=== PATIENT | female | born 1950 | race Caucasian/White ===

== ENCOUNTER → 2020-07-16 14:52 | Outpatient (REF) | payer MEDICARE, OTHER, SELFPAY ==
--- NOTE | 2020-07-16 15:00 | CA_ITS ---
Transthoracic Echocardiogram Patient (Last, First, Middle): Shellie Salgado R Gender: Female Date of : 1950 Age: 70 Procedure Date: 07/16/2020 Procedure Type: Transthoracic Echocardiogram Location: OP Height: 157.48 cm Weight: 81.65 kg BSA: 1.83 m2 Heart Rate: bpm BP: 140 / 80 mmHg Waste Disposal Leakage Tester: Referring MD: Bob Anna MD Symptoms: I48.0 PAF, I10 HTN Study Quality: Fair ECG Rhythm: Sinus Conclusions: - The left ventricular systolic function is normal. The visually estimated ejection fraction is between 55-60%. - There is mild mitral annular calcification. There is mild mitral valve regurgitation. - Small plaque is seen in the sino tubular ridge. Findings Left Ventricle Normal left ventricular cavity size. There is normal left ventricular wall thickness. The left ventricular systolic function is normal. The visually estimated ejection fraction is between 55-60%. There is no evidence of regional wall motion abnormalities. Diastolic function is normal for age. Right Ventricle Normal right ventricular cavity size and systolic function. Atria The left atrium is normal in size. The right atrium is normal in size. Aortic Valve There is a normal trileaflet aortic valve. There is no aortic valve stenosis. There is no aortic valve regurgitation. Mitral Valve The mitral valve appears normal. There is mild mitral annular calcification. There is mild mitral valve regurgitation. There is no mitral valve stenosis. Pulmonic Valve The pulmonic valve was not well visualized. There is trace pulmonic valve regurgitation. Tricuspid Valve Normal tricuspid valve structure. There is trace tricuspid valve regurgitation. The pulmonary artery systolic pressure is normal. Great Vessels The asc aorta is normal in size. Small plaque is seen in the sino tubular ridge. Venous The inferior vena cava is normal in size and collapses greater than 50% with inspiration. Pericardium/Pleural There is no evidence of pericardial effusion. Prior Study Comparison No significant change compared to prior study dated: 01/11/2017. Measurements 2D Linear Measurements RVIDd: 3.14 RVIDd Index: 1.72 IVSd: 1.07 0.6-0.9/0.6-1.0 cm LVIDd: 5.05 3.9-5.3/4.2-5.9 cm LVIDd Index: 2.76 2.4-3.2/2.2-3.1 cm/m2 LVIDs: 3.37 2.0-3.6 cm LVPWd: 1.01 0.7-1.1 cm Ao Root: 2.30 2.1-3.5 cm LA Diam: 4.00 2.7-3.8/3.0-4.0 cm LAIDs Index: 2.19 1.5-2.3 cm/m2 LV Mass: 243.03 67-162/88-224 g LV Mass Index: 132.80 43-95/49-115 g/m2 LVOT Diam: 2.00 3.0+(-)1.3 cm 2D Systolic Function EF 4C: 52.70 >55% EF 2C: 63.50 >55% EF BiP: 60.40 >55% Mitral Valve MV Pk E: 0.82 MV PK A: 0.90 MV Decel Time: 180.00 E/A: 0.90 E'Lateral: 8.22 E'Medial: 6.38 E/E' Med: 12.90 E/E' Lat: 10.00 PHT: 53.00 MVA PHT: 4.15 Decel Florence: 4.56 Aortic Valve AoV Pk Perfecto: 1.38 AoV Mn Perfecto: 1.09 AoV VTI: 0.34 AoV Pk Grad: 8.00 Aov Mn Grad: 5.00 CHRISTIAN Cont.VTI: 2.21 LVOT LVOT Pk Perfecto: 1.08 LVOT Mn Perfecto: 0.68 LVOT VTI: 0.24 LVOT Pk Grad: 5.00 LVOT Mn Grad: 2.00 LVOT Diam: 2.00 LVOT Area: 3.14 Diastolic Function MV Pk E: 0.82 MV Pk A: 0.90 E/A: 0.90 E'Medial: 6.38 E/E' Med: 12.90 E' Laterial: 8.22 E/E' Lat: 10.00 Tricuspid Valve TR Pk Perfecto: 2.31 TR Pk Grad: 21.00 RA Press: 3.00 RVSP: 24.00 Great Vessels Aorta Ao Root-2D: 2.30 2.0-3.7 cm Ao Asc: 2.80 2.1-3.4 cm Ao Arch: 2.80 Updated in Other Vendor System with Status of Final Gabriel Woody MD electronically signed on 07/17/2020 1:47:37 PM with status of Final
== END ==
LOC: HO.CARD 14:52
PROVIDERS: PCP Internal Medicine; Visit Provider Internal Medicine Cardiovascular Disease
DX: I48.0 Paroxysmal atrial fibrillation (principal); I10 Essential (primary) hypertension
CPT/HCPCS: 93306

== ENCOUNTER → 2020-08-11 14:34 | Outpatient (BNVA) | payer MEDICARE, OTHER, SELFPAY | PROVIDERS: PCP Internal Medicine; Referring Provider Internal Medicine; Visit Provider Internal Medicine Cardiovascular Disease | DX: I48.0 Paroxysmal atrial fibrillation (principal); I10 Essential (primary) hypertension; Z79.01 Long term (current) use of anticoagulants; Z79.899 Other long term (current) drug therapy | CPT/HCPCS: 93005; 99212 ==

== ENCOUNTER 2020-08-14 14:00 | Outpatient (RCR) | payer MEDICARE, OTHER, SELFPAY ==
--- NOTE | 2020-09-01 14:50 | MHC.PT.DC ---
[facility] [place] Office [place] Office [place] Office [address] Giovany Mehta 140 [facility] [phone] F: [phone] F: [phone] F: [phone] F: [phone] Physical Therapy Discharge Report Diagnosis: Tendinitis of Right shoulder Date of Surgery: Date of Evaluation: 06/05/20 Date of Discharge: 08/14/20 Treatments to Date: 13 Cancellations to Date: 0 No Shows to Date: 0 Discharge Status: Achieved Goals Independent with HEP Discharge Summary: Pt progressed well over the course of skilled PT making progress on impairments and functional limitations resulting in an improved quality of life. Pt is I with HEP and appropriate to d/c to HEP at this time. Electronically signed by: Sreedhar So, PT Please sign and return to therapist. Thank you for your referral.
== END 2020-09-01 14:49 | disposition home or self-care (01) ==
LOC: HO.PTCHIC 14:00
PROVIDERS: PCP Internal Medicine; Visit Provider Physician Assistant
DX: M75.81 Other shoulder lesions, right shoulder (principal)
CPT/HCPCS: 97110; 97140

== ENCOUNTER 2020-08-20 12:30 | Outpatient (REF) | payer MEDICARE, OTHER, SELFPAY ==
--- NOTE | 2020-08-20 12:35 | XR_ITS ---
EXAMINATION: XR LUMBOSACRAL SPINE WITH OBLIQUES CLINICAL INFORMATION: Low back pain. COMPARISON: None TECHNIQUE: AP, both oblique, and lateral views of the lumbar spine. Lateral view of the lumbosacral junction. FINDINGS: There is generalized osteopenia. Normal lumbar lordosis and spinal alignment is seen. The intervertebral disc spaces are unremarkable. Mild to moderate bilateral facet arthropathy seen at L4-5 and L5-S1. There is no acute fracture. The soft tissues are unremarkable. XR/XR lumbar spine 6V w bending IMPRESSION: Generalized osteopenia. L4-5 and L5-S1 mild to moderate bilateral facet arthropathy.
== END 2020-08-20 12:31 | disposition home or self-care (01) ==
LOC: HO.HMGCX 12:30
PROVIDERS: PCP Internal Medicine; Visit Provider Internal Medicine
DX: M54.5 Low back pain (principal)
CPT/HCPCS: 72114

== ENCOUNTER 2020-09-23 14:00 | Outpatient (RCR) | payer MEDICARE, OTHER, SELFPAY ==
--- NOTE | 2020-08-18 18:32 | MHC.PT.EP ---
[facility] [place] Office [place] Office [place] Office [address] Giovany Mehta [address] [phone] F: [phone] F: [phone] F: [phone] F: [phone] Physical Therapy Plan of Care Date of Evaluation: 08/18/20 Date of Surgery: Diagnosis: This is a 70 yo female presenting to skilled PT with a script for low back pain Assessment: This patient was just recently at this facility for R shoulder pain and reports good results. She is now here for what she believes is sciatica. She reports that she has had back pain for many years but has not had therapy for it. Her pain lessened over time however over the past 3 months her pain increased silvia sitting. In general, she reports that this pain is limiting her in enjoying life . She has constant pain that is described as squeezing and burning , it can travel into the B buttocks and posterior legs (equal B). Assessment reveals pain that can range up to 8/10 mainly with sitting, altered posture and + testing for sacral/SIJ involvement, tenderness to palpation throughout R sacral crest and B PSIS, decreased glut strength, impaired lumbar joint mobility and ROM and decreased functional tolerance. She is a good candidate for skilled PT 2x/wk for 6wks based on age, functional limitations, PMHx and gross PT goals Frequency and Duration: The patient will be seen 2x/wk for 6wk Short Term Goals: I in HEP normal lumbar ROM without pain normal SIJ alignment with reassessment and negative tests Longterm Goals: Normal sitting posture without pain Oswestry improves by 10 points Pain at the worst is no more than 2/10 Treatment Plan: Modalities to reduce pain, spasms and effusion. Manual therapy to restore motion and function. Therapeutic exercise to improve strength and flexibility. Neuromuscular re-education for posture and balance. Therapeutic activities to return to functional activities of daily living. Please sign and return to therapist. Thank you for your referral.
--- NOTE | 2020-09-24 09:51 | MHC.PT.DC ---
[facility] [place] Office [place] Office [place] Office [address] Giovany Mehta [address] [phone] F: [phone] F: [phone] F: [phone] F: [phone] Physical Therapy Discharge Report Diagnosis: This is a 70 yo female presenting to skilled PT with a script for low back pain Date of Surgery: Date of Evaluation: 08/18/20 Date of Discharge: 09/23/20 Treatments to Date: 7 Cancellations to Date: 0 No Shows to Date: 0 Discharge Status: Achieved Goals Improved Function Independent with HEP Recommend MD Follow-up Discharge Summary: Pt I with HEP. Pt achieved most STG, LTG's however patient still has SI dysfunction. Lumbar and sacral ROM is WNL. 16 on Oswestry. DC to HEP Electronically signed by: Ledy Jurado PT Please sign and return to therapist. Thank you for your referral.
== END 2020-09-24 09:54 | disposition home or self-care (01) ==
LOC: HO.PTCHIC 14:00
PROVIDERS: PCP Internal Medicine; Visit Provider Internal Medicine
DX: M54.5 Low back pain (principal)
CPT/HCPCS: 97014; 97110; 97140; 97162

== ENCOUNTER → 2021-03-19 14:48 | Outpatient (BNVA) | payer MEDICARE, OTHER, SELFPAY | PROVIDERS: PCP Internal Medicine; Referring Provider Internal Medicine; Visit Provider Internal Medicine Cardiovascular Disease | DX: R94.31 Abnormal electrocardiogram [ECG] [EKG] (principal) | CPT/HCPCS: 93005 ==

== ENCOUNTER 2021-05-20 10:26 | Outpatient (REF) | payer MEDICARE, OTHER, SELFPAY ==
[2021-05-20 12:33] LABS: Alanine Aminotransferase 22 U/L (0-31); Anion Gap 14 (12-20); Aspartate Amino Transferase 21 U/L (5-31); Blood Urea Nitrogen 17 mg/dL (9-16); Calcium 9.4 mg/dL (8.4-10.2); Carbon Dioxide 26 mmol/L (22-29); Chloride 104 mmol/L (96-108); Cholesterol 193 mg/dL; Estimated Glomerular Filt Rate 56; Glucose Fasting 101 mg/dL (60-99); HDL Cholesterol 50 mg/dL; LDL Cholesterol Calculated 96 mg/dl; Potassium 4.5 mmol/L (3.3-5.1); Sodium 139 mmol/L (135-145); Triglycerides 239 mg/dL
[2021-05-20 12:34] LABS: Vitamin D 25-OH Total 48.5 ng/mL (>30)
== END 2021-05-20 10:27 | disposition home or self-care (01) ==
LOC: HO.HMGCLDS 10:26
PROVIDERS: PCP Internal Medicine; Visit Provider Internal Medicine
DX: I48.0 Paroxysmal atrial fibrillation (principal); I10 Essential (primary) hypertension; E78.5 Hyperlipidemia, unspecified; Z78.0 Asymptomatic menopausal state
CPT/HCPCS: 36415; 80048; 80061; 82306; 84450; 84460

== ENCOUNTER 2021-06-18 13:19 | Outpatient (REF) | payer MEDICARE, OTHER, SELFPAY ==
--- NOTE | ~2021-06-18 | MM_ITS ---
EXAMINATION: MM SCREENING DIGITAL BREAST TOMOSYNTHESIS, BILATERAL CLINICAL INFORMATION: Screening. Asymptomatic. Remote left lumpectomy for breast cancer, 1988. COMPARISON: Mammography: 06/12/2020, 01/16/2019, 02/28/2018 TECHNIQUE: Digital breast tomosynthesis is performed in both the craniocaudal and mediolateral oblique views along with computer-aided detection (CAD). Synthesized 2D images are generated from the tomosynthesis. Additional exaggerated left CC and additional left MLO views are provided. FINDINGS: There are scattered areas of fibroglandular density (ACR BI-RADS breast composition Category b). Parenchymal pattern is similar to prior studies. The right breast is unremarkable. Neither breast shows interval mass or architectural abnormality or abnormal calcifications. Left breast again shows post therapy changes with reduced breast size and stable scarring. There are some dystrophic calcifications as well as regional ductal secretory calcifications left breast. Bilateral vascular calcifications again noted. No significant changes. MM/MM tomosynthesis screening BI IMPRESSION: No mammographic evidence of malignancy. Post therapy changes left breast. ASSESSMENT: BI-RADS 2: Benign RECOMMENDATION: Routine annual mammography screening. This patient's information was entered into a reminder system with a target due date for their next mammogram.
== END 2021-06-18 13:20 | disposition home or self-care (01) ==
LOC: HO.MAMMO 13:19
PROVIDERS: PCP Internal Medicine; Visit Provider Internal Medicine
DX: Z12.31 Encounter for screening mammogram for malignant neoplasm of breast (principal)
CPT/HCPCS: 77063; 77067

== ENCOUNTER → 2021-08-11 13:43 | Outpatient (BNVA) | payer MEDICARE, OTHER, SELFPAY | PROVIDERS: PCP Internal Medicine; Referring Provider Internal Medicine; Visit Provider Internal Medicine Cardiovascular Disease | DX: I48.0 Paroxysmal atrial fibrillation (principal); I10 Essential (primary) hypertension | CPT/HCPCS: 93005; 99212 ==

== ENCOUNTER 2022-02-08 12:39 | Outpatient (REF) | payer MEDICARE, OTHER, SELFPAY ==
[2022-02-08 13:59] LABS: Hematocrit 41.9 % (37.0-47.0); Hemoglobin 13.7 g/dl (12.0-16.0); Mean Corpuscular HGB Conc 32.7 g/dl (31.0-35.0); Mean Corpuscular Hemoglobin 30.1 pg (27.0-33.0); Mean Corpuscular Volume 92.1 fL (80.0-98.0); Mean Platelet Volume 10.6 fL (9.4-12.3); Platelet Count 316 X10*3/uL (160-400); Red Blood Count 4.55 X10*6/uL (4.20-5.50); Red Cell Distribution Width 12.6 % (11.0-16.0)
[2022-02-08 15:03] LABS: Anion Gap 14 (12-20); Blood Urea Nitrogen 17 mg/dL (9-16); Calcium 9.6 mg/dL (8.4-10.2); Carbon Dioxide 21 mmol/L (22-29); Chloride 106 mmol/L (96-108); Estimated Glomerular Filt Rate 49; Glucose Random 148 mg/dL (60-115); Potassium 4.1 mmol/L (3.3-5.1); Sodium 137 mmol/L (135-145)
== END 2022-02-08 12:40 | disposition home or self-care (01) ==
LOC: HO.LAB 12:39
PROVIDERS: PCP Internal Medicine; Referring Provider Internal Medicine; Visit Provider Internal Medicine Cardiovascular Disease
DX: I48.0 Paroxysmal atrial fibrillation (principal); I10 Essential (primary) hypertension
CPT/HCPCS: 36415; 80048; 85027; 93005; 99212

== ENCOUNTER → 2022-04-23 14:39 | Outpatient (BNVA) | payer MEDICARE, OTHER, SELFPAY | PROVIDERS: PCP Internal Medicine; Referring Provider Internal Medicine; Visit Provider Nurse Practitioner Family | DX: K21.9 Gastro-esophageal reflux disease without esophagitis (principal); K29.70 Gastritis, unspecified, without bleeding | CPT/HCPCS: 99212 ==

== ENCOUNTER 2022-04-28 12:06 | Outpatient (REF) | payer MEDICARE, OTHER, SELFPAY ==
[2022-04-28 13:20] LABS: Hematocrit 43.8 % (37.0-47.0); Hemoglobin 14.2 g/dl (12.0-16.0); Mean Corpuscular HGB Conc 32.4 g/dl (31.0-35.0); Mean Corpuscular Hemoglobin 29.9 pg (27.0-33.0); Mean Corpuscular Volume 92.2 fL (80.0-98.0); Mean Platelet Volume 10.6 fL (9.4-12.3); Platelet Count 346 X10*3/uL (160-400); Red Blood Count 4.75 X10*6/uL (4.20-5.50); Red Cell Distribution Width 12.8 % (11.0-16.0); White Blood Count 10.2 X10*3/uL (4.8-10.8)
[2022-04-28 13:40] LABS: Lipase 28 U/L (8-78)
[2022-04-28 14:13] LABS: Folate 17.4 ng/mL (> or = 4.0); Vitamin B12 273 pg/mL (200-900)
[2022-04-28 14:48] LABS: Appearance Urine HAZY; Color Urine YELLOW; Glucose Urine UA NEG (NEG); Leukocyte Esterase Urine TRACE (NEG); Nitrite Urine NEG (NEG); PH 5.5 (5.0-8.0); UACC Culture Trigger NO; Urine Blood TRACE (NEG); Urine Ketones NEG (NEG); Urine Protein NEG (NEG-TRACE)
[2022-04-28 15:14] LABS: Bacteria Urine 3+ /LPF; RBC Urine 0-2 /HPF (0); Squamous Epithelial Cell Urine 4+ /LPF
[2022-05-03 14:06] LABS: Vitamin D 25-OH, D2 <4 ng/mL; Vitamin D 25-OH, D3 34 ng/mL; Vitamin D 25-OH, Total 34 ng/mL (30-100)
== END 2022-04-28 12:07 | disposition home or self-care (01) ==
LOC: HO.LAB 12:06
PROVIDERS: PCP Internal Medicine; Visit Provider Nurse Practitioner Family
DX: R10.9 Unspecified abdominal pain (principal); R19.7 Diarrhea, unspecified; E55.9 Vitamin D deficiency, unspecified
CPT/HCPCS: 36415; 81001; 82306; 82607; 82746; 83690; 85027; 99212

== ENCOUNTER 2022-04-29 12:31 | Outpatient (REF) | payer MEDICARE, OTHER, SELFPAY ==
--- NOTE | ~2022-04-29 | CT_ITS ---
EXAMINATION: CT ABDOMEN AND PELVIS WITH CONTRAST CLINICAL INFORMATION: Abdominal pain. COMPARISON: None TECHNIQUE: Multidetector volumetric images were obtained from the superior aspect of the liver through the pubic symphysis following administration 85 mL of Omnipaque 350 intravenous contrast. Sagittal and coronal reformatted images were obtained on the technologist's workstation. Oral contrast was given. This CT examination was performed using dose optimization techniques as appropriate, variously including the following: *Automated exposure control *Adjustment of mA and/or kV according to patient size (this includes techniques or standardized protocols for targeted exams where dose is matched to indication/reason for exam; i.e. extremities or head) *Use of iterative reconstruction technique DLP: 726 mGy-cm FINDINGS: LUNG BASES: No pulmonary consolidation or pleural effusion at either lung base. LIVER: Diffuse hepatic steatosis with small region of relative sparing around the gallbladder fossa. GALLBLADDER AND BILIARY TREE: Gallbladder is without radiopaque stones, wall thickening or pericholecystic fluid. No intrahepatic bile duct dilatation. Common bile duct is approximately 0.7 cm transverse diameter and there are no stones visualized within the duct. PANCREAS: Moderate atrophy. No pancreatic edema or peripancreatic fluid. SPLEEN: Normal. ADRENAL GLANDS: Normal. KIDNEYS AND URETERS: The kidneys have normal size and cortical thickness. No perinephric fluid collection. No urolithiasis or hydroureteronephrosis. BLADDER: Normal. No calculi or wall thickening. BOWEL AND PERITONEUM: Stomach is unremarkable. No dilated bowel loops. Small bowel is grossly normal. The appendix appears to be surgically absent. Along the anterior wall of the proximal sigmoid colon, there is a focus of circumscribed fat around which mesenteric fat stranding is identified. This has the typical appearance of epiploic appendagitis. Otherwise, the colon is unremarkable. ABDOMINAL WALL: Unremarkable. VASCULATURE: Mild atherosclerotic calcification of the abdominal aorta without aneurysm. Inferior vena cava is normal. LYMPH NODES: No pathologic sized lymph nodes in the abdomen or pelvis. No inguinal lymphadenopathy. PELVIC VISCERA: The uterus and adnexa are unremarkable. No pelvic free fluid. SKELETAL: There is generally mild multilevel discovertebral degenerative change of the visualized spine. No suspicious bone lesions. Bones are diffusely osteopenic. CT/CT abdomen pelvis w con IMPRESSION: * There is a epiploic appendagitis at the anterior wall of the proximal sigmoid colon. * Diffuse hepatic steatosis.
[2022-04-29 13:27] LABS: Blood Urea Nitrogen 15 mg/dL (9-16); Estimated Glomerular Filt Rate 60
[2022-04-29] MEDS: iohexoL 350 MG/ML 100 ML INFUS..BTL IV (15:56)
== END 2022-04-29 12:32 | disposition home or self-care (01) ==
LOC: HO.CT 12:31
PROVIDERS: PCP Internal Medicine; Visit Provider Nurse Practitioner Family
DX: R10.9 Unspecified abdominal pain (principal); R30.0 Dysuria; E78.5 Hyperlipidemia, unspecified
CPT/HCPCS: 36415; 74177; 82565; 84520; Q9967

== ENCOUNTER 2022-05-07 09:50 | Outpatient (REF) | payer MEDICARE, OTHER, SELFPAY ==
[2022-05-08 11:14] LABS: H Pylori Breath Test Negative (Negative)
== END 2022-05-07 09:51 | disposition home or self-care (01) ==
LOC: HO.LNP 09:50
PROVIDERS: PCP Internal Medicine; Visit Provider Nurse Practitioner Family
DX: Z11.2 Encounter for screening for other bacterial diseases (principal)
CPT/HCPCS: 83013; 99211

== ENCOUNTER → 2022-05-11 11:19 | Outpatient (BNVA) | payer MEDICARE, OTHER, SELFPAY | PROVIDERS: PCP Internal Medicine; Visit Provider Nurse Practitioner Family | DX: R10.32 Left lower quadrant pain (principal); K21.9 Gastro-esophageal reflux disease without esophagitis; K57.90 Diverticulosis of intestine, part unspecified, without perforation or abscess without bleeding | CPT/HCPCS: 99212 ==

== ENCOUNTER 2022-06-14 07:24 | Day surgery (SDC) | payer MEDICARE, OTHER, SELFPAY ==
[2022-06-08 15:01] VITALS: BMI 36.8
--- NOTE | 2022-06-11 12:56 | MHC.SHP ---
Pre-Procedural Eval Section A Date of Service: 06/11/22 The patient is an INPATIENT: No Changes since office visit: No Cold of Flu in the past 2 weeks, No New Medical Problems, No Changes in Medication and No Patient answered all questions The History & Physical has been completed within 30 days and I have reviewed it.: Yes Section B Chief Complaint: cataract Allergies: Allergies Allergy/AdvReac Type Severity Reaction Status Date / Time bupropion [From Wellbutrin] Allergy Unknown burning Verified 06/08/22 14:49 sensation citalopram Allergy Unknown burning Verified 06/08/22 14:49 sensatin in skin Plan Diagnosis/Plan: Unchanged I have reviewed the history and physical and performed a pertinent physical examination on my patient. No changes have occurred unless specified.
[2022-06-14 08:45] VITALS: BP 180/87; PULSE 67; RESP 16; TEMP 36.6; O2SAT 98
[2022-06-14] MEDS: Lactated Ringers 500 ML 50 ML IVCONT (08:54)
[2022-06-14] MEDS: Tetracaine HCl/PF 0.5% Oph Sol 4 ML DROPS 1 DROP EYE-RIGHT (08:54)
[2022-06-14] MEDS: Cyclopentolate 1 % Ophth Sol 2 ML DRPBTL 1 DROP EYE-RIGHT ×3 (08:55→09:09)
--- NOTE | 2022-06-14 08:55 | HO.ANESPROP2 ---
HPI - Anesthesia Eval Consult details Narrative: right eye cataract PMFSH Active Problems Active Problems: All Active Problems (Updated 06/03/22 @ 16:30 by Bijal Umana MD) History of left breast cancer (Acute) Vaginal pruritus (Acute) Nasal sinus congestion (Acute) Dyslipidemia (Acute) Anxiety disorder (Acute) Low back pain (Acute) Paroxysmal atrial fibrillation (Acute) HTN (hypertension) (Acute) Past Medical History Medical History Anxiety disorder Dyslipidemia History of left breast cancer HTN (hypertension) Low back pain Nasal sinus congestion On anticoagulant therapy On beta kemal at home Paroxysmal atrial fibrillation Pruritic intertrigo Vaginal pruritus Family History Family History Father Enlarged heart Hyperlipidemia Mother Uterine cancer Maternal Aunt Breast cancer Brother Mental health disorder Sister Mental health disorder Sister No problems noted. Son No problems noted. Son No problems noted. Family history of problems with anesthesia: No Surgical History Surgical History History of lumpectomy of left breast History of Problems with Anesthesia: No Social History Social History Housing: House Are you a primary career and technology education teacher to a significant other at home: No Do you presently have visiting nurse or other home services: No Alcohol intake: never Patient Tobacco Use Status: Never used Tobacco e-Cigarette/Vaping Use: Never Used Second Hand Smoke Exposure: No Use of substances other than those prescribed or required for medical reasons: No Have you been hit, kicked, punched, or otherwise hurt by someone within the past year? If so, by whom?: No Are you DNR?: No Advance Directives: No Advance Directives Information Provided: Yes Advance Directives on File: No Recently lost weight without trying: No Eating poorly because of decreased appetite: No Nutrition Risks: No Nutritional Risk Current occupational status: retired Cognitive needs: No Hearing needs: No Vision needs: Yes Meds Allergies Allergy/AdvReac Type Severity Reaction Status Date / Time bupropion [From Wellbutrin] Allergy Unknown burning Verified 06/08/22 14:49 sensation citalopram Allergy Unknown burning Verified 06/08/22 14:49 sensatin in skin Active Medications: Current Medications Lactated Ringer's (Lr) 500 mls @ 50 mls/hr IVCONT .Q10H ANDRÉS Last Admin: 06/14/22 08:54 Dose: 50 mls/hr Povidone Iodine (Povidone Iodine 5 % Ophth Soln 30 Ml Bottle) 1 appl EYE-RIGHT PREOP PRN PRN Reason: Pre-Op Surgical Implant Prophy Home Medications Medication Instructions Recorded Confirmed Last Taken Type cholecalciferol (vitamin D3) 25 25 mcg PO DAILY 08/12/20 06/08/22 Unknown History mcg (1,000 unit) capsule coenzyme Q10 100 mg capsule 100 mg PO DAILY 08/12/20 06/08/22 Unknown History (CoQ-10) Saccharomyces boulardii 250 mg 250 mg PO BID 06/03/22 06/08/22 Unknown History capsule (Daily Probiotic (S. boulardii)) Exam Exam Date and Time: June 14, 2022 0855 Height,Weight and Vital Signs: Height 5 ft 1 in Weight 88.451 kg Last Vital Signs Temp 97.9 F 06/14/22 08:45 Pulse 67 06/14/22 08:45 Resp 16 06/14/22 08:45 BP 180/87 H 06/14/22 08:45 Pulse Ox 98 06/14/22 08:45 O2 Del Method 06/14/22 08:45 Airway Mallampati Class: II TM Dist: >3cm Neck ROM: Full Loose/Missing/Broken Teeth: No Heart: rrr+[id number] Lungs: CTA b/l Assessment and Plan Assessment Anesthesia Assessment: Anesthesia Plan Discussed and Chart Reviewed Final Anesthetic Review Family History of Problems with Anesthesia: No History of Problems with Anesthesia: No NPO: Yes ASA Class: III Final Preanesthetic Review: No Changes in Pt Med Stat, Meds/Allgs Chart Reviewed, Consent Obtained/Reviewed and Anes Risks/Benef Reviewed Patient Risk: Intermediate Procedure Risk: Low Assessment/Block/Sedation in SS: Assess/Block/Sedation-SS Anesthetic Plan Anesthetic Plan: MAC: and Agree w/ Assess. and Plan Disposition: Standard PACU
[2022-06-14] MEDS: Tropicamide 1 % Ophth Sol 3 ML BTL 1 DROP EYE-RIGHT ×3 (08:58→09:11)
[2022-06-14] MEDS: Phenylephrine HCL 2.5% Oph SoL 2 ML BOTTLE 1 DROP EYE-RIGHT ×3 (09:01→09:12)
--- NOTE | 2022-06-14 10:13 | HO.PNOPHT ---
Ophthalmology Procedure Procedure Date of Service: 06/14/22 Ophthalmology Viscoelastic: Heallissette Richeyt Dual Pack Pro Ophthalmology Lenses: TECNIS [id number] (22.5) Procedure Notes: PREOPERATIVE DIAGNOSIS: Decreased visual acuity right eye secondary to cataract POSTOPERATIVE DIAGNOSIS: Same PROCEDURE: Right cataract extraction with intraocular lens insertion SURGEON: Evans Obrien M.D. ANESTHESIA: Topical/MAC ESTIMATED BLOOD LOSS: None COMPLICATIONS: None After obtaining informed consent, the patient was brought to the operating room suite and placed in the supine position. After adequate sedation per anesthesia, topical drops of Tetracaine were given to the right eye. The eye was then prepped and draped in the usual sterile fashion. The operating room microscope was then positioned over the operative eye and a lid speculum placed. A paracentesis was created. Viscoelastic was then instilled into the anterior chamber. A three plane incision was then created temporally, utilizing a 2.85 mm keratome. Capsulotomy forceps were then utilized to create a circular tear capsulotomy. Hydrodissection and hydrodelineation were carried out until adequate mobilization of the nucleus occurred. Phacoemulsification was then utilized to remove the dense central nucleus followed by removal of the cortical material utilizing the automated aspiration irrigation unit. Viscoelastic was instilled into the posterior capsular bag followed by placement of a posterior chamber intraocular lens without difficulty. The residual Viscoelastic was then removed utilizing the automated IA machine. The wound was checked and found to be watertight. The patient tolerated the procedure well and the lid speculum was removed. Intracameral injection of Vigamox 0.1 mL followed by a subtenon injection of Kenalog-40 0.2 mL were administered. The patient will be seen in the a.m.
[2022-06-14 10:35] VITALS: BP 129/76; PULSE 65; RESP 18; TEMP 36.6; O2SAT 97
== END 2022-06-14 10:49 | disposition home or self-care (01) ==
PROVIDERS: PCP Internal Medicine; Visit Provider Ophthalmology
PROC: (CPT 66985; principal; 2022-06-14 09:40)
DX: H25.11 Age-related nuclear cataract, right eye (principal); I10 Essential (primary) hypertension; Z79.899 Other long term (current) drug therapy
CPT/HCPCS: 66984; J2250; J3300; V2632

== ENCOUNTER 2022-06-21 05:57 | Day surgery (SDC) | payer MEDICARE, OTHER, SELFPAY ==
[2022-06-08 15:31] VITALS: BMI 36.8
--- NOTE | 2022-06-17 13:22 | MHC.SHP ---
Pre-Procedural Eval Section A Date of Service: 06/17/22 The patient is an INPATIENT: No Changes since office visit: No Cold of Flu in the past 2 weeks, No New Medical Problems, No Changes in Medication and No Patient answered all questions The History & Physical has been completed within 30 days and I have reviewed it.: Yes Section B Chief Complaint: cataract Allergies: Allergies Allergy/AdvReac Type Severity Reaction Status Date / Time bupropion [From Wellbutrin] Allergy Unknown burning Verified 06/08/22 14:49 sensation citalopram Allergy Unknown burning Verified 06/08/22 14:49 sensatin in skin Plan Diagnosis/Plan: Unchanged I have reviewed the history and physical and performed a pertinent physical examination on my patient. No changes have occurred unless specified.
--- NOTE | 2022-06-18 09:12 | P.CONAN_ITS ---
Documented by User: Alanna Tracy NP 06/18/22 09:13 HPI - Anesthesia Eval Consult details Narrative: 72yo F for Left Cataract Extraction IOL Insertion PCP cleared Right eye 06/14/22 with MAC: Midaz 1.5 PMFSH Active Problems Active Problems: All Active Problems (Updated 06/03/22 @ 16:30 by Bijal Umana MD) History of left breast cancer (Acute) Vaginal pruritus (Acute) Nasal sinus congestion (Acute) Dyslipidemia (Acute) Anxiety disorder (Acute) Low back pain (Acute) Paroxysmal atrial fibrillation (Acute) HTN (hypertension) (Acute) Past Medical History Medical History Anxiety disorder Dyslipidemia History of left breast cancer HTN (hypertension) Low back pain Nasal sinus congestion On anticoagulant therapy On beta kemal at home Paroxysmal atrial fibrillation Pruritic intertrigo Vaginal pruritus Family History Family History Father Enlarged heart Hyperlipidemia Mother Uterine cancer Maternal Aunt Breast cancer Brother Mental health disorder Sister Mental health disorder Sister No problems noted. Son No problems noted. Son No problems noted. Family history of problems with anesthesia: No Surgical History Surgical History History of cataract extraction History of lumpectomy of left breast History of Problems with Anesthesia: No Social History Social History Housing: House Are you a primary childcare provider to a significant other at home: No Do you presently have visiting nurse or other home services: No Alcohol intake: never Patient Tobacco Use Status: Never used Tobacco e-Cigarette/Vaping Use: Never Used Second Hand Smoke Exposure: No Use of substances other than those prescribed or required for medical reasons: No Have you been hit, kicked, punched, or otherwise hurt by someone within the past year? If so, by whom?: No Are you DNR?: No Advance Directives: No Advance Directives Information Provided: Yes Advance Directives on File: No Recently lost weight without trying: No Eating poorly because of decreased appetite: No Nutrition Risks: No Nutritional Risk Patient : No Current occupational status: retired Cognitive needs: No Hearing needs: No Vision needs: Yes Meds Allergies Allergy/AdvReac Type Severity Reaction Status Date / Time bupropion [From Wellbutrin] Allergy Unknown burning Verified 06/21/22 07:06 sensation citalopram Allergy Unknown burning Verified 06/21/22 07:06 sensatin in skin Home Medications Medication Instructions Recorded Confirmed Last Taken Type cholecalciferol (vitamin D3) 25 25 mcg PO DAILY 08/12/20 06/08/22 Unknown History mcg (1,000 unit) capsule coenzyme Q10 100 mg capsule 100 mg PO DAILY 08/12/20 06/08/22 Unknown History (CoQ-10) Saccharomyces boulardii 250 mg 250 mg PO BID 06/03/22 06/08/22 Unknown History capsule (Daily Probiotic (S. boulardii)) Exam Exam Date and Time: June 18, [id number] Height,Weight and Vital Signs: Height 5 ft 1 in Weight 88.451 kg Assessment and Plan Assessment Anesthesia Assessment: Chart Reviewed Final Anesthetic Review Family History of Problems with Anesthesia: No History of Problems with Anesthesia: No Documented by User: Raul Prakash MD 06/21/22 07:14 [facility] Past Medical History Medical History Anxiety disorder Dyslipidemia History of left breast cancer HTN (hypertension) Low back pain Nasal sinus congestion On anticoagulant therapy On beta kemal at home Paroxysmal atrial fibrillation Pruritic intertrigo Vaginal pruritus Family History Family History Father Enlarged heart Hyperlipidemia Mother Uterine cancer Maternal Aunt Breast cancer Brother Mental health disorder Sister Mental health disorder Sister No problems noted. Son No problems noted. Son No problems noted. Surgical History Surgical History History of cataract extraction History of lumpectomy of left breast Social History Social History Housing: House Are you a primary childcare provider to a significant other at home: No Do you presently have visiting nurse or other home services: No Alcohol intake: never Patient Tobacco Use Status: Never used Tobacco e-Cigarette/Vaping Use: Never Used Second Hand Smoke Exposure: No Use of substances other than those prescribed or required for medical reasons: No Have you been hit, kicked, punched, or otherwise hurt by someone within the past year? If so, by whom?: No Are you DNR?: No Advance Directives: No Advance Directives Information Provided: Yes Advance Directives on File: No Recently lost weight without trying: No Eating poorly because of decreased appetite: No Nutrition Risks: No Nutritional Risk Patient : No Current occupational status: retired Cognitive needs: No Hearing needs: No Vision needs: Yes Meds Allergies Allergy/AdvReac Type Severity Reaction Status Date / Time bupropion [From Wellbutrin] Allergy Unknown burning Verified 06/21/22 07:06 sensation citalopram Allergy Unknown burning Verified 06/21/22 07:06 sensatin in skin Home Medications Medication Instructions Recorded Confirmed Last Taken Type cholecalciferol (vitamin D3) 25 25 mcg PO DAILY 08/12/20 06/08/22 Unknown History mcg (1,000 unit) capsule coenzyme Q10 100 mg capsule 100 mg PO DAILY 08/12/20 06/08/22 Unknown History (CoQ-10) Saccharomyces boulardii 250 mg 250 mg PO BID 06/03/22 06/08/22 Unknown History capsule (Daily Probiotic (S. boulardii)) Exam Airway Mallampati Class: III TM Dist: >3cm Neck ROM: Full Loose/Missing/Broken Teeth: No Heart: [id number] Lungs: cta b/l Assessment and Plan Assessment Anesthesia Assessment: Anesthesia Plan Discussed Final Anesthetic Review NPO: Yes ASA Class: III Final Preanesthetic Review: No Changes in Pt Med Stat, Meds/Allgs Chart Reviewed, Consent Obtained/Reviewed and Anes Risks/Benef Reviewed Patient Risk: Intermediate Procedure Risk: Low Assessment/Block/Sedation in SS: Assess/Block/Sedation-SS Anesthetic Plan Anesthetic Plan: MAC: and Agree w/ Assess. and Plan Disposition: Standard PACU
[2022-06-21 06:10] VITALS: BP 168/73; PULSE 65; RESP 16; TEMP 36.8; O2SAT 97
[2022-06-21] MEDS: Tetracaine HCl/PF 0.5% Oph Sol 4 ML DROPS 1 DROP EYE-LEFT (06:13)
[2022-06-21] MEDS: Cyclopentolate 1 % Ophth Sol 2 ML DRPBTL 1 DROP EYE-LEFT ×3 (06:17→06:30)
[2022-06-21] MEDS: Tropicamide 1 % Ophth Sol 3 ML BTL 1 DROP EYE-LEFT ×3 (06:19→06:31)
[2022-06-21] MEDS: Phenylephrine HCL 2.5% Oph SoL 2 ML BOTTLE 1 DROP EYE-LEFT ×3 (06:23→06:34)
[2022-06-21] MEDS: Lactated Ringers 500 ML 50 ML IV (06:25)
--- NOTE | 2022-06-21 07:40 | HO.PNOPHT ---
Ophthalmology Procedure Procedure Date of Service: 06/21/22 Ophthalmology Viscoelastic: Heallissette Richeyt Dual Pack Pro Ophthalmology Lenses: TECLAURA [id number] (22) Procedure Notes: PREOPERATIVE DIAGNOSIS: Decreased visual acuity left eye secondary to cataract POSTOPERATIVE DIAGNOSIS: Same PROCEDURE: Left cataract extraction with intraocular lens insertion SURGEON: Evans Obrien M.D. ANESTHESIA: Topical/MAC ESTIMATED BLOOD LOSS: None COMPLICATIONS: None After obtaining informed consent, the patient was brought to the operation room suite and placed in the supine position. After adequate sedation per anesthesia, topical drops of Tetracaine were given to the left eye. The eye was then prepped and draped in the usual sterile fashion. The operating room microscope was then positioned over the operative eye and a lid speculum placed. A paracentesis was created. Viscoelastic was then instilled into the anterior chamber. A three plane incision was then created temporally, utilizing a 2.85 mm keratome. Capsulotomy forceps were then utilized to create a circular tear capsulotomy. Hydrodissection and hydrodelineation were carried out until adequate mobilization of the nucleus occurred. Phacoemulsification was then utilized to remove the dense central nucleus followed by removal of the cortical material utilizing the automated aspiration irrigation unit. Viscoat elastic was instilled into the posterior capsular bag followed by placement of a posterior chamber intraocular lens without difficulty. The residual Viscoat elastic was then removed utilizing the automated IA machine. The wound was check and found to be watertight. The patient tolerated the procedure well and the lid speculum was removed. Intracameral injection of Vigamox 0.1 mL followed by a subtenon injection of Kenalog-40 0.2 mL were administered. The patient will be seen in the a.m.
[2022-06-21 08:10] VITALS: BP 148/75; PULSE 58; RESP 16; TEMP 37; O2SAT 96
== END 2022-06-21 08:24 | disposition home or self-care (01) ==
PROVIDERS: PCP Internal Medicine; Visit Provider Ophthalmology
PROC: (CPT 66985; principal; 2022-06-21 07:30)
DX: H25.12 Age-related nuclear cataract, left eye (principal); H52.4 Presbyopia; I10 Essential (primary) hypertension; E78.5 Hyperlipidemia, unspecified; F41.1 Generalized anxiety disorder; I48.0 Paroxysmal atrial fibrillation; Z79.01 Long term (current) use of anticoagulants; Z79.899 Other long term (current) drug therapy; Z79.51 Long term (current) use of inhaled steroids; Z85.3 Personal history of malignant neoplasm of breast; Z88.8 Allergy status to other drugs, medicaments and biological substances
CPT/HCPCS: 66984; J2250; J2405; J3010; J3300; V2632

== ENCOUNTER → 2022-07-02 13:51 | Outpatient (BNVA) | payer MEDICARE, OTHER, SELFPAY | PROVIDERS: PCP Internal Medicine; Visit Provider Nurse Practitioner Family | DX: R10.84 Generalized abdominal pain (principal); K21.9 Gastro-esophageal reflux disease without esophagitis | CPT/HCPCS: 99212 ==

== ENCOUNTER → 2022-07-26 14:50 | Outpatient (REF) | payer MEDICARE, OTHER, SELFPAY ==
--- NOTE | 2022-07-26 14:52 | CA_ITS ---
Transthoracic Echocardiogram Patient (Last, First, Middle): Shellie Salgado R Gender: Female Date of : 1950 Age: 72 Procedure Date: 07/26/2022 Procedure Type: Transthoracic Echocardiogram Location: OP Height: 157.48 cm Weight: 79.38 kg BSA: 1.81 m2 Heart Rate: bpm BP: 130 / 82 mmHg Prototype Engineer: TO Referring MD: Bob Anna MD Symptoms: I48.0 - Paroxysmal atrial fibrillation Study Quality: Adequate Conclusions: - 1. Normal LV systolic function with impaired relaxation filling pattern 2. Cardiac valvular Doppler within normal limits 3. Normal RV systolic pressure 4. No gross pericardial effusion Findings Left Ventricle Normal left ventricular size, thickness, and systolic function. The visually estimated ejection fraction is between 60-65%. Spectral Doppler is indicative of an impaired relaxation filling pattern. E/E prime ratio is between 8 and 15 consistent with indeterminate filling pressures. Right Ventricle Normal right ventricular cavity size and systolic function. Atria Both atria are normal in size. Interatrial shunt cannot be excluded. Aortic Valve There is mild calcification of the aortic valve. There is no aortic valve stenosis. There is no aortic valve regurgitation. Mitral Valve There is mild anterior and posterior mitral leaflet thickening. There is mild mitral annular calcification. There is trace mitral valve regurgitation. There is no mitral valve stenosis. Pulmonic Valve The pulmonic valve is likely normal. Tricuspid Valve Likely normal tricuspid valve structure and function. There is trace tricuspid valve regurgitation. The right ventricular systolic pressure is normal. The right ventricular systolic pressure is 17 mmHg. Normal right atrial pressure. There is no evidence of pulmonary hypertension. Great Vessels All visible segments of the aorta are normal in size. The pulmonary artery was not well visualized. Venous The inferior vena cava is normal in size and collapses greater than 50% with inspiration. Pericardium/Pleural There is no evidence of pericardial effusion. Prior Study Comparison No significant change compared to prior study dated: 07/16/2020. Measurements 2D Linear Measurements IVSd: 0.86 0.6-0.9/0.6-1.0 cm LVIDd: 4.95 3.9-5.3/4.2-5.9 cm LVIDd Index: 2.73 2.4-3.2/2.2-3.1 cm/m2 LVIDs: 2.91 2.0-3.6 cm LVPWd: 0.68 0.7-1.1 cm LA Diam: 2.80 2.7-3.8/3.0-4.0 cm LAIDs Index: 1.55 1.5-2.3 cm/m2 LV Mass: 157.89 67-162/88-224 g LV Mass Index: 87.23 43-95/49-115 g/m2 LVOT Diam: 2.00 3.0+(-)1.3 cm 2D Systolic Function EF 4C: 67.20 >55% EF 2C: 58.10 >55% EF BiP: 63.20 >55% Mitral Valve MV Pk E: 0.56 MV PK A: 0.83 MV Decel Time: 227.00 E/A: 0.70 E'Lateral: 6.74 E'Medial: 4.13 E/E' Med: 13.50 E/E' Lat: 8.30 PHT: 67.00 MVA PHT: 3.28 Decel Levy: 2.45 Aortic Valve AoV Pk Perfecto: 1.33 AoV Mn Perfecto: 0.84 AoV VTI: 0.27 AoV Pk Grad: 7.00 Aov Mn Grad: 3.00 CHRISTIAN Cont.VTI: 2.59 LVOT LVOT Pk Perfecto: 0.97 LVOT Mn Perfecto: 0.65 LVOT VTI: 0.22 LVOT Pk Grad: 4.00 LVOT Mn Grad: 2.00 LVOT Diam: 2.00 LVOT Area: 3.14 Diastolic Function MV Pk E: 0.56 MV Pk A: 0.83 E/A: 0.70 E'Medial: 4.13 E/E' Med: 13.50 E' Laterial: 6.74 E/E' Lat: 8.30 Right Ventricle TAPSE (mm): 1.63 TVS' Perfecto: 7.94 Tricuspid Valve TR Pk Perfecto: 1.85 TR Pk Grad: 14.00 RA Press: 3.00 RVSP: 17.00 Great Vessels Aorta Sinus of Valsalva: 2.91 2.0-3.[address] [place]: 2.31 1.7-3.4 cm Ao Asc: 3.30 2.1-3.4 cm Ao Arch: 3.00 Updated in Other Vendor System with Status of Final Bob Anna MD electronically signed on 07/27/2022 11:54:04 AM with status of Final
== END ==
LOC: HO.CARD 14:50
PROVIDERS: PCP Internal Medicine; Visit Provider Internal Medicine Cardiovascular Disease
DX: I48.0 Paroxysmal atrial fibrillation (principal)
CPT/HCPCS: 93306

== ENCOUNTER 2022-08-04 | Outpatient (REF) | payer MEDICARE, OTHER, SELFPAY ==
--- NOTE | ~2022-08-04 | XR_ITS ---
EXAMINATION: CHEST AND RIGHT HIP CLINICAL INFORMATION: Weakness with pain in hip COMPARISON: Chest radiograph 05/28/2012 TECHNIQUE: Single view chest, single view pelvis with 2 additional views right FINDINGS: No significant abnormalities seen involving the heart, lungs or mediastinum. Some degenerative changes are seen in the spine. The pelvis and hips are unremarkable. No fractures are seen. XR/XR hip RT w PEL1V IMPRESSION: No acute intrathoracic disease. No hip fracture.
== END 2022-08-04 00:01 | disposition home or self-care (01) ==
LOC: HO.HOSX
PROVIDERS: Visit Provider Physician Assistant
DX: M70.61 Trochanteric bursitis, right hip (principal); M70.62 Trochanteric bursitis, left hip
CPT/HCPCS: 20610; 73502; 99202; J1020

== ENCOUNTER 2022-08-04 14:47 | Observation (INO) | payer MEDICARE, OTHER, SELFPAY ==
--- NOTE | ~2022-08-04 | XR_ITS ---
EXAMINATION: CHEST AND RIGHT HIP CLINICAL INFORMATION: Weakness with pain in hip COMPARISON: Chest radiograph 05/28/2012 TECHNIQUE: Single view chest, single view pelvis with 2 additional views right FINDINGS: No significant abnormalities seen involving the heart, lungs or mediastinum. Some degenerative changes are seen in the spine. The pelvis and hips are unremarkable. No fractures are seen. XR/XR chest 1V IMPRESSION: No acute intrathoracic disease. No hip fracture.
--- NOTE | ~2022-08-04 | MR_ITS ---
EXAMINATION: BRAIN MRI WITHOUT CONTRAST. CLINICAL INFORMATION: Cerebrovascular accident. Lower extremity weakness. Word finding difficulties. COMPARISON: CT angiogram of the head and neck 08/04/2022. TECHNIQUE: Multiplanar MR imaging of the brain was performed without contrast. FINDINGS: There are scattered nonspecific foci of T2 FLAIR signal hyperintensity within the periventricular white matter. No acute territorial infarct. No pathological magnetic susceptibility artifact. Intracranial vascular flow voids are maintained. There is no intracranial mass effect or midline shift. No abnormal extra-axial collection. Lateral and third ventricles are normal. No hydrocephalus. Midline structures including the cervicomedullary junction are normal. No acute bone marrow signal changes. There are bilateral mastoid effusions. No active paranasal sinus disease. Globes and orbits are symmetric. MR/MR head/brain wo con IMPRESSION: There are scattered chronic small vessel ischemic changes within the periventricular white matter. Otherwise unremarkable examination. No evidence of acute territorial infarct or hemorrhage.
--- NOTE | ~2022-08-04 | CT_ITS ---
EXAMINATION: CT angio head neck stroke CLINICAL INFORMATION: Difficulty with speech. Confusion. COMPARISON: CT scan of the head 08/04/2022. TECHNIQUE: Slip Mixer images were obtained. A CT angiogram of the head and neck was performed in the arterial phase after the intravenous administration of 70 mL Omnipaque 350. Delayed postcontrast images of the head were also obtained. MIP reconstructions were generated in multiple orientations at the acquisition workstation. Multiple three-dimensional surface rendered images and maximum intensity projection images were generated on a dedicated 3-D lab workstation. Arterial stenoses are measured in accordance with NASCET criteria or similar method if applicable. This CT examination was performed using dose optimization techniques as appropriate, including one or more of the following: Automated exposure control, iterative reconstruction, and adjustment of technique factors (mA and/or kVp) according to patient size (this includes techniques or standardized protocols for targeted exams where dose is matched to indication/reason for exam). Fleischner Society criteria for the followup of incidental pulmonary nodules was implemented if appropriate. Total exam dose-length product 1359 mGy-cm FINDINGS: Head: Postcontrast images reveal no abnormal intracranial mass or enhancement. There is no intracranial mass effect or midline shift. Lateral and third ventricles are normal. No hydrocephalus. Kulkarni-white matter differentiation is preserved and there is no evidence of acute territorial infarct. Skull base are intact. Mastoid air cells and middle ear cavities are well aerated. No identifiable filling defect within the dural venous sinuses. CT angiogram neck: The aortic arch apex is normal. Origins of major aortic branches are widely patent. Common carotid arteries and carotid bifurcations are normal. No stenosis of the extracranial internal carotid arteries. The cervical segments of the vertebral arteries as well as their origins are patent. CT angiogram head: Intracranial internal carotid arteries are normal. The intradural vertebral artery segments and basilar artery are normal. Anterior, middle, and posterior cerebral artery complexes are normal. No intracranial or vessel occlusion. Grossly no evidence of aneurysm or high flow vascular lesion. Other: Soft tissues of the neck including the thyroid gland are normal. Grossly no pathologically enlarged cervical lymph nodes. No acute osseous finding. Specific no worrisome lytic or blastic osseous lesion. CT/CT angio head neck stroke IMPRESSION: Unremarkable CT angiogram of the head and neck. Specifically there is no stenosis of the cervical carotid or vertebral arteries. No intracranial large vessel occlusion. Grossly no evidence of acute territorial infarct. No abnormal intracranial mass or enhancement. This critical result was discussed with Nupur Esparza at 3:23 PM on 08/04/2022 and it was ascertained that the content and urgency of the report was understood at the time of direct communication.
--- NOTE | ~2022-08-04 | CT_ITS ---
EXAMINATION: CT HEAD WITHOUT CONTRAST (STROKE PROTOCOL) CLINICAL INFORMATION: Stroke protocol. Diffuse, difficulty with speech. Possible stroke. COMPARISON: None TECHNIQUE: Contiguous axial imaging was performed from the skull base to vertex without intravenous administration of contrast. Axial images provided. This CT examination was performed using dose optimization techniques as appropriate, variously including the following: *Automated exposure control *Adjustment of mA and/or kV according to patient size (this includes techniques or standardized protocols for targeted exams where dose is matched to indication/reason for exam; i.e. extremities or head) *Use of iterative reconstruction technique DLP: 595 mGy-cm FINDINGS: There is no intracranial hemorrhage, hematoma, or extra-axial fluid collection. The ventricles are normal in size. There is no hydrocephalus, edema, or mass effect. The tam-white matter differentiation appears well preserved . There is no visible acute territorial infarct or mass lesion. There is focal high attenuation in the distal basilar artery 115 HU attenuation suspected to represent calcification. CTA head and neck pending, separate report. The calvarium appears intact. There is no pneumocephalus or orbital emphysema. The visualized sinuses and middle ears and mastoid air cells show no significant mucosal thickening. There are no air-fluid levels. Results called and discussed with KATRIN Fu in the emergency department at [address]/CT head for stroke IMPRESSION: -No acute intracranial hemorrhage or mass effect. -Focal high attenuation distal basilar artery suspected to represent calcification. CTA head and neck pending, separate report.
[2022-08-04 14:51] VITALS: BP 165/75; PULSE 80; RESP 19; TEMP 36.6; O2SAT 95; BMI 32.9
--- NOTE | 2022-08-04 14:56 | ECG_ITS ---
Test Reason : STROKE SYMPTOMS Blood Pressure : / mmHG Vent. Rate : 072 BPM Atrial Rate : 072 BPM P-R Int : 202 ms QRS Dur : 090 ms QT Int : 400 ms P-R-T Axes : 044 -16 008 degrees QTc Int : 438 ms Normal sinus rhythm Nonspecific T wave abnormality Anterior leads Moderate voltage criteria for LVH, may be normal variant ( R in aVL , [place] product ) Abnormal ECG When compared with ECG of 03-SEP-2017 13:03, T wave amplitude has decreased in Anterior leads Referred By: Nupur Esparza Electronically Signed By:CARLOS ENRIQUE JEFFERS MD
[2022-08-04 15:05] LABS: Prothrombin Time Whole Bld POC 11.9 sec (11.1-13.5)
[2022-08-04 15:06] LABS: Glucose, Whole Blood 149 mg/dL (60-115)
[2022-08-04] MEDS: iohexoL 350 MG/ML 100 ML INFUS..BTL IV (15:16)
--- NOTE | 2022-08-04 15:23 | ED.GENADULT ---
HPI - General Adult General Chief complaint: General Medical Stated complaint: allergic reaction Time Seen by Provider: 08/04/22 14:55 Source: patient and family Mode of arrival: wheelchair History of Present Illness HPI narrative: 72-year-old female with a past medical history of anxiety, HLD, HTN, AFib on Xarelto (noncompliance past 3 weeks), presenting to the ED from orthopedic office s/p steroid injections to bilateral hips for acute onset of bilateral lower extremity weakness, mild headache, difficulty moving mouth/finding words, dry mouth, and lightheadedness. Symptoms began a little after 14:00, improving at present. Has been noncompliant on her anticoagulation as wanted to take NSAIDs for her hip pain. Denies vision change/loss, neck/back pain, CP/SOB, abdominal pain, nausea/vomiting, numbness, tingling Onset (ago): hour(s) Related Data Home Medications Medication Instructions Recorded Confirmed cholecalciferol (vitamin D3) 25 25 mcg PO DAILY 08/12/20 06/08/22 mcg (1,000 unit) capsule coenzyme Q10 100 mg capsule 100 mg PO DAILY 08/12/20 06/08/22 (CoQ-10) Saccharomyces boulardii 250 mg 250 mg PO BID 06/03/22 06/08/22 capsule (Daily Probiotic (S. boulardii)) Previous Rx's Medication Instructions Recorded flecainide 50 mg tablet 50 mg PO BID #190 tabs 08/11/21 metoprolol tartrate 50 mg tablet 50 mg PO BID #180 caps 08/11/21 rivaroxaban 20 mg tablet (Xarelto) 20 mg PO BEDTIME #90 tabs 08/11/21 atorvastatin 10 mg tablet 10 mg PO DAILY #90 tabs 04/12/22 fluticasone propionate 50 1 spray intranasal BID #16 grams 04/12/22 mcg/actuation nasal spray,suspension (Flonase Allergy Relief) lorazepam 0.5 mg tablet 0.5 mg PO DAILY PRN anxiety #30 04/12/22 tabs famotidine 20 mg tablet (Pepcid) 20 mg PO DAILY #30 tabs 07/02/22 naproxen 500 mg tablet 500 mg PO BID 30 days #60 tabs 08/04/22 Allergies Allergy/AdvReac Type Severity Reaction Status Date / Time bupropion [From Wellbutrin] Allergy Unknown burning Verified 08/04/22 13:34 sensation citalopram Allergy Unknown burning Verified 08/04/22 13:34 sensatin in skin Review of Systems Review of Systems: Constitutional: No Fever, No Chills, No Fatigue, No Malaise ENT/Mouth: No Ear Pain, No Nasal Congestion, No Sinus Pain, No Hoarseness, No sore throat, No Rhinorrhea, No Swallowing Difficulty Eyes: No Eye Pain, No Swelling, No Redness, No Vision Changes Cardiovascular: No Chest Pain, No SOB, No Dyspnea on Exertion, No Orthopnea, No Edema, No Palpitations Respiratory: No Cough, No Sputum, No Dyspnea Gastrointestinal: No Nausea, No Vomiting, No Diarrhea, No Constipation, No Abdominal pain Genitourinary: No Dysuria, No Urinary Frequency, No Hematuria, No Urinary Incontinence/retention, No Flank Pain, No Urinary Flow Changes Musculoskeletal: No joint pain, No Myalgias, No Joint Swelling Skin: No Skin Lesions, No rash Neuro: + Weakness, No Numbness, No Paresthesias, No Loss of Consciousness, + lightheaded, + Headache Psych: + Anxiety/Panic Yes all other systems are reviewed and are negative Constitutional: Constitutional: Reports as per HPI Neurologic: Denies Abnormal speech present [facility] Past Medical History Attestation statement: The following information was validated with the patient. Medical History Anxiety disorder Dyslipidemia History of left breast cancer HTN (hypertension) Low back pain Nasal sinus congestion On anticoagulant therapy On beta kemal at home Paroxysmal atrial fibrillation Pruritic intertrigo Vaginal pruritus Surgical History History of cataract extraction History of lumpectomy of left breast Family History Family History Father Enlarged heart Hyperlipidemia Mother Uterine cancer Maternal Aunt Breast cancer Brother Mental health disorder Sister Mental health disorder Sister No problems noted. Son No problems noted. Son No problems noted. Social History Social History Housing: House Are you a primary home care coordinator to a significant other at home: No Do you presently have visiting nurse or other home services: No Alcohol intake: never Patient Tobacco Use Status: Never used Tobacco Smoked in Last 30 Days: No e-Cigarette/Vaping Use: Never Used Second Hand Smoke Exposure: No Use of substances other than those prescribed or required for medical reasons: No Advance Directives: No Advance Directives Information Provided: Yes Current occupational status: retired Cognitive needs: No Hearing needs: No Vision needs: Yes Physical Exam ED Vital Signs: Vital Signs - 24 hr 08/04/22 14:51 08/04/22 15:24 Temperature 98 F Pulse Rate 80 76 Respiratory Rate 19 18 Blood Pressure 165/75 H 171/71 H Pulse Oximetry 95 95 Oxygen Delivery Method Room Air BMI result Body Mass Index 33.5 Const General: cooperative, healthy appearing and no acute distress Orientation/consciousness: patient oriented x3 Limitations: no limitations HENMT Head: Yes normal to inspection and Yes atraumatic Ears: hearing grossly normal bilaterally General nose exam: Normal external nose present Face and sinus: Yes normal facial exam Throat: Yes posterior oropharynx normal, Yes tonsils normal, Yes uvula midline and No uvular edema Eyes General: appearance normal, both eyes and all related structures Pupils: Equal, round and reactive pupils present EOM: EOMs intact bilaterally Neck Neck: Yes normal visual inspection and Yes no meningeal signs Resp Effort & Inspection: normal respiratory effort and no respiratory distress Auscultation: clear to auscultation bilaterally, no crackles, no rales, no rhonchi and no wheezes Cardio Rate: regular rate Heart sounds: S1 normal heart sound present and S2 normal heart sound present GI Inspection: Yes normal to inspection Palpation (GI): Soft to palpation, nontender, no guarding and not rigid Skin Rashes: no rashes Wounds: no wounds Neuro General: patient oriented x3, tone normal, moves all extremities, no meningeal signs, no focal motor deficits and CN's II-XI intact bilaterally Cranial nerves: Yes Equal, round and reactive pupils present Cognition (Neuro): normal cognition Speech: No Abnormal speech present Motor exam (neuro): 5/5 motor strength present throughout, Pronator motor function not present and no tremor noted Coordination: [id number] test normal Romberg Test: Negative Extrem General: Yes normal to inspection Course Course Course Narrative: CT head for stroke IMPRESSION: -No acute intracranial hemorrhage or mass effect. ? -Focal high attenuation distal basilar artery suspected to represent calcification. CTA head and neck pending, separate report. CT angio head? neck stroke IMPRESSION: Unremarkable CT angiogram of the head and neck. Specifically there is no stenosis of the cervical carotid or vertebral arteries. No intracranial large vessel occlusion. Grossly no evidence of acute territorial infarct. No abnormal intracranial mass or enhancement.? ? ? This critical result was discussed with Nupur Esparza at 3:23 PM on 08/04/2022 and it was ascertained that the content and urgency of the report was understood at the time of direct communication. >> 1523-- stroke nurse Veronica at bedside, case discussed with Neurology Dr. Mcrae recommended stat MRI -1704--BUN acute on chronically elevated. AST/ALT mildly elevated. Initial troponin 5.1 > will obtain 3 hour repeat MR head/brain wo con IMPRESSION: There are scattered chronic small vessel ischemic changes within the periventricular white matter. Otherwise unremarkable examination. No evidence of acute territorial infarct or hemorrhage.? > will reinitiate patient on her Xarelto, plan to admit for TIA, symptoms completely resolved at present Medical Decision Making MDM Narrative Medical decision making narrative: 72-year-old female with a past medical history of anxiety, HLD, HTN, AFib on Xarelto (noncompliance past 3 weeks), presenting to the ED from orthopedic office s/p steroid injections to bilateral hips for acute onset of bilateral lower extremity weakness, mild headache, difficulty moving mouth/finding words, dry mouth, and lightheadedness. On exam vital signs stable, NAD, nontoxic appearing, symptoms improving at present, NIHSS = 0, concern for CVA vs TIA vs SAH vs embolism vs anxiety reaction Stroke alert called a soon as patient arrived to ED Plan: EKG, labs, UA, CXR, head CT, head/neck CTA, neurology consult Medical Records Medical records reviewed: Yes I reviewed the patient's medical records. Lab Data Lab results reviewed: Yes I reviewed the patient's lab results. Result diagrams: 08/04/22 15:46 08/04/22 15:46 Labs: Lab Results 08/04/22 08/04/22 08/04/22 Range/Units 14:59 15:00 15:46 WBC (4.8-10.8) X10*3/uL RBC (4.20-5.50) X10*6/uL Hgb (12.0-16.0) g/dl Hct (37.0-47.0) % MCV (80.0-98.0) fL MCH (27.0-33.0) pg MCHC (31.0-35.0) g/dl RDW (11.0-16.0) % Plt Count (160-400) X10*3/uL MPV (9.4-12.3) fL Immature Gran % (Auto) (0.0-0.4) % Neut % (Auto) (45-73) % Lymph % (Auto) (20-40) % [place] % (Auto) (2-11) % Eos % (Auto) (0-4) % Baso % (Auto) (0-2) % Lymph # (Auto) (1.2-4.9) X10*3/uL [place] # (Auto) (0.1-1.2) X10*3/uL Eos # (Auto) (0.0-0.4) X10*3/uL Baso # (Auto) (0.0-0.2) X10*3/uL Abs Immat Gran (auto) (0.00-0.03) X10*3/uL Absolute Neuts (auto) (2.0-8.3) x10*3/uL Absolute Nucleated RBC (0.0-0.012) X10*3/uL Nucleated RBC % (auto) (0.0-0.2) /100WBC PT (10.0-13.1) SEC Whole Blood PT 11.9 (11.1-13.5) sec INR (0.9-1.1) Whole Blood INR 1.0 (0.9-1.1) APTT (26.0-36.4) SEC Sodium 137 (135-145) mmol/L Potassium 4.4 (3.3-5.1) mmol/L Chloride 101 (96-108) mmol/L Carbon Dioxide 26 (22-29) mmol/L Anion Gap 14 (12-20) BUN 20 H (9-16) mg/dL Creatinine 1.11 (0.5-1.4) mg/dL Estim Creat Clear Calc 45.1 Estimated GFR 48 POC Glucose 149 H (60-115) mg/dL Random Glucose 147 H (60-115) mg/dL Calcium 9.7 (8.4-10.2) mg/dL Magnesium 1.8 (1.6-2.6) mg/dL Total Bilirubin 0.4 (0.0-1.0) mg/dL Direct Bilirubin 0.2 (0.0-0.5) mg/dL AST 36 H D (5-31) U/L ALT 42 H (0-31) U/L Alkaline Phosphatase 66 (39-117) U/L Troponin I High Sens (<3.5-17.0) ng/L Total Protein 7.9 (6.5-8.0) g/dL Albumin 4.1 (3.5-5.0) g/dL 08/04/22 08/04/22 08/04/22 Range/Units 15:46 15:46 15:46 WBC 7.3 (4.8-10.8) X10*3/uL RBC 4.66 (4.20-5.50) X10*6/uL Hgb 14.3 (12.0-16.0) g/dl Hct 43.2 (37.0-47.0) % MCV 92.7 (80.0-98.0) fL MCH 30.7 (27.0-33.0) pg MCHC 33.1 (31.0-35.0) g/dl RDW 13.0 (11.0-16.0) % Plt Count 276 (160-400) X10*3/uL MPV 11.0 (9.4-12.3) fL Immature Gran % (Auto) 0.3 (0.0-0.4) % Neut % (Auto) 77.7 H (45-73) % Lymph % (Auto) 14.2 L (20-40) % [place] % (Auto) 6.3 (2-11) % Eos % (Auto) 0.5 (0-4) % Baso % (Auto) 1.0 (0-2) % Lymph # (Auto) 1.0 L (1.2-4.9) X10*3/uL [place] # (Auto) 0.5 (0.1-1.2) X10*3/uL Eos # (Auto) 0.0 (0.0-0.4) X10*3/uL Baso # (Auto) 0.1 (0.0-0.2) X10*3/uL Abs Immat Gran (auto) 0.02 (0.00-0.03) X10*3/uL Absolute Neuts (auto) 5.7 (2.0-8.3) x10*3/uL Absolute Nucleated RBC 0.000 (0.0-0.012) X10*3/uL Nucleated RBC % (auto) 0.0 (0.0-0.2) /100WBC PT 11.0 (10.0-13.1) SEC Whole Blood PT (11.1-13.5) sec INR 1.0 (0.9-1.1) Whole Blood INR (0.9-1.1) APTT 32.6 (26.0-36.4) SEC Sodium (135-145) mmol/L Potassium (3.3-5.1) mmol/L Chloride (96-108) mmol/L Carbon Dioxide (22-29) mmol/L Anion Gap (12-20) BUN (9-16) mg/dL Creatinine (0.5-1.4) mg/dL Estim Creat Clear Calc Estimated GFR POC Glucose (60-115) mg/dL Random Glucose Cancelled (60-115) mg/dL Calcium (8.4-10.2) mg/dL Magnesium (1.6-2.6) mg/dL Total Bilirubin (0.0-1.0) mg/dL Direct Bilirubin (0.0-0.5) mg/dL AST (5-31) U/L ALT (0-31) U/L Alkaline Phosphatase (39-117) U/L Troponin I High Sens (<3.5-17.0) ng/L Total Protein (6.5-8.0) g/dL Albumin (3.5-5.0) g/dL 08/04/22 Range/Units 15:46 WBC (4.8-10.8) X10*3/uL RBC (4.20-5.50) X10*6/uL Hgb (12.0-16.0) g/dl Hct (37.0-47.0) % MCV (80.0-98.0) fL MCH (27.0-33.0) pg MCHC (31.0-35.0) g/dl RDW (11.0-16.0) % Plt Count (160-400) X10*3/uL MPV (9.4-12.3) fL Immature Gran % (Auto) (0.0-0.4) % Neut % (Auto) (45-73) % Lymph % (Auto) (20-40) % [place] % (Auto) (2-11) % Eos % (Auto) (0-4) % Baso % (Auto) (0-2) % Lymph # (Auto) (1.2-4.9) X10*3/uL [place] # (Auto) (0.1-1.2) X10*3/uL Eos # (Auto) (0.0-0.4) X10*3/uL Baso # (Auto) (0.0-0.2) X10*3/uL Abs Immat Gran (auto) (0.00-0.03) X10*3/uL Absolute Neuts (auto) (2.0-8.3) x10*3/uL Absolute Nucleated RBC (0.0-0.012) X10*3/uL Nucleated RBC % (auto) (0.0-0.2) /100WBC PT (10.0-13.1) SEC Whole Blood PT (11.1-13.5) sec INR (0.9-1.1) Whole Blood INR (0.9-1.1) APTT (26.0-36.4) SEC Sodium (135-145) mmol/L Potassium (3.3-5.1) mmol/L Chloride (96-108) mmol/L Carbon Dioxide (22-29) mmol/L Anion Gap (12-20) BUN (9-16) mg/dL Creatinine (0.5-1.4) mg/dL Estim Creat Clear Calc Estimated GFR POC Glucose (60-115) mg/dL Random Glucose (60-115) mg/dL Calcium (8.4-10.2) mg/dL Magnesium (1.6-2.6) mg/dL Total Bilirubin (0.0-1.0) mg/dL Direct Bilirubin (0.0-0.5) mg/dL AST (5-31) U/L ALT (0-31) U/L Alkaline Phosphatase (39-117) U/L Troponin I High Sens 5.1 (<3.5-17.0) ng/L Total Protein (6.5-8.0) g/dL Albumin (3.5-5.0) g/dL Critical Care Time Critical Care Time Critical Care Time: Yes Total Critical Care Time: 35 Attestation: I have personally provided critical care time exclusive of time spent on separately billable procedures. Time includes review of lab data, radiology results, discussion with consultants, and monitoring for potential decompensation. Intervention performed as documented. Discharge Plan Discharge Clinical Impression: TIA (transient ischemic attack) Patient Disposition: Admitted As Inpatient Prescriptions: No Action coenzyme Q10 [CoQ-10] 100 mg capsule 100 mg PO DAILY cholecalciferol (vitamin D3) 25 mcg (1,000 unit) capsule 25 mcg PO DAILY atorvastatin 10 mg tablet 10 mg PO DAILY Qty: 90 1RF fluticasone propionate [Flonase Allergy Relief] 50 mcg/actuation spray,suspension 1 spray intranasal BID Qty: 16 1RF Rx Instructions: administer into each nostril lorazepam 0.5 mg tablet 0.5 mg PO DAILY PRN (Reason: anxiety) Qty: 30 0RF Saccharomyces boulardii [Daily Probiotic (S. boulardii)] 250 mg capsule 250 mg PO BID metoprolol tartrate 50 mg tablet 50 mg PO BID Qty: 180 3RF Xarelto 20 mg tablet 20 mg PO BEDTIME Qty: 90 3RF flecainide 50 mg tablet 50 mg PO BID Qty: 190 3RF famotidine [Pepcid] 20 mg tablet 20 mg PO DAILY Qty: 30 3RF naproxen 500 mg tablet 500 mg PO BID 30 Days Qty: 60 3RF
[2022-08-04 15:24] VITALS: BP 171/71; PULSE 76; RESP 18; O2SAT 95
[2022-08-04 15:29] VITALS: BMI 33.5
[2022-08-04 15:54] LABS: MANUAL DIFF FLAG NO
[2022-08-04 15:56] LABS: Basophils Absolute Auto 0.1 X10*3/uL (0.0-0.2); Eosinophils Percent Auto 0.5 % (0-4); Hematocrit 43.2 % (37.0-47.0); Hemoglobin 14.3 g/dl (12.0-16.0); Imm Gran Abs Auto 0.02 X10*3/uL (0.00-0.03); Imm Gran Pct Auto 0.3 % (0.0-0.4); Lymphocytes Percent Auto 14.2 % (20-40); Mean Corpuscular HGB Conc 33.1 g/dl (31.0-35.0); Mean Corpuscular Hemoglobin 30.7 pg (27.0-33.0); Mean Corpuscular Volume 92.7 fL (80.0-98.0); Monocytes Absolute Auto 0.5 X10*3/uL (0.1-1.2); Monocytes Percent Auto 6.3 % (2-11); Neutrophils Absolute Auto 5.7 x10*3/uL (2.0-8.3); Neutrophils Percent Auto 77.7 % (45-73); Platelet Count 276 X10*3/uL (160-400); Red Blood Count 4.66 X10*6/uL (4.20-5.50); White Blood Count 7.3 X10*3/uL (4.8-10.8)
[2022-08-04 16:04] LABS: Partial Thromboplastin Time 32.6 SEC (26.0-36.4); Stroke Lab Use COMPLETE
[2022-08-04 16:15] LABS: Alanine Aminotransferase 42 U/L (0-31); Albumin Level 4.1 g/dL (3.5-5.0); Alkaline Phosphatase 66 U/L (39-117); Anion Gap 14 (12-20); Aspartate Amino Transferase 36 U/L (5-31); Bilirubin Direct 0.2 mg/dL (0.0-0.5); Bilirubin Total 0.4 mg/dL (0.0-1.0); Blood Urea Nitrogen 20 mg/dL (9-16); Calcium 9.7 mg/dL (8.4-10.2); Carbon Dioxide 26 mmol/L (22-29); Chloride 101 mmol/L (96-108); Creatinine Clr Calc Pharmacy 45.1; Estimated Glomerular Filt Rate 48; Glucose Random 147 mg/dL (60-115); Magnesium 1.8 mg/dL (1.6-2.6); Potassium 4.4 mmol/L (3.3-5.1); Sodium 137 mmol/L (135-145); Total Protein 7.9 g/dL (6.5-8.0)
[2022-08-04 16:16] LABS: Troponin-I High Sensitivity 5.1 ng/L (<3.5-17.0)
--- NOTE | 2022-08-04 16:56 | MHC.STROKE ---
1447 WALK-IN FROM ORTHOPEDIC OFFICE. 1456 CALLED TO ED FOR STROKE PROTOCOL ACTIVATION. SEEN BY PROVIDER FOR SUDDEN ONSET OF SLURRED SPEECH AND JHON LEG WEAKNESS ONSET AT 1415. CT HEAD AND CTA H/N DONE. NO BLED AND NO LVO. UPON MY EXAM HER NIHSS = 0. I REVIEWED HER PRESENTATION WITH DR MADSEN AND A MRI BRAIN WO WAS RECOMMENDED DUE TO THE SLURRED SPEECH AND HISTORY OF AFIB AND SHE HAS NOT TAKEN HER XARELTO FOR 2-3 WEEKS DUE TO HIP PAIN AND SHE WANTED TO TAKE ADVIL. PATIENT PASSED SWALLOW SCREEN PRIOR TO PO. SLIGHTLY HYPERTENSIVE. I DID TAKE HER TO MRI, SHE DID AMBULATE TO THE BATHROOM WITH A STEADY GAIT WITH ASSIST, VOIDED, SHE TOLERATED THE MRI AND AMBULATED TO THE BATHROOM A SECOND TIME, VOIDED. BP 188/70. I REPORTED TO THE NURSE GREGORY. I PROVIDED STROKE EDUCATION TO THE PATIENT AND . I REVIEWED THE PLAN OF CARE AND ANSWERED AL OF HER QUESTIONS. SHE WILL ADMITTED TO OBSERVATION AND MONITOR NEURO'S, RESTART XARELTO, ECHO (ALTHOUGH SHE HAD ONE LAST WEEK ACCORDING TO HER) WE NEED TO ASSESS ECHO BECAUSE SHE WAS OFF THE XARELTO.
--- NOTE | 2022-08-04 17:29 | PHA.MEDREC ---
Pharmacy Consult ? Medication Reconciliation Pharmacy has completed the medication reconciliation.
[2022-08-04 17:43] VITALS: BP 199/67; PULSE 77; RESP 18; TEMP 36.9; O2SAT 96
--- NOTE | 2022-08-04 17:45 | P.HPHOSP_ITS ---
History of Present Illness Date of Service: 08/04/22 <KATRIN Verduzco - Last Filed: 08/04/22 18:40> Attending physician on admission: Purvi Jeter <KATRIN Verduzco - Last Filed: 08/04/22 18:40> Chief Complaint: weakness, aphasia <KATRIN Verduzco - Last Filed: 08/04/22 18:40> 72 year old female with history of paroxysmal atrial fibrillation on xarelto (though noncompliant last 3 weeks as she had wanted to take ibuprofen for her pain), htn, hld, bilateral trochanteric bursitis, hisotyr breast cancer, and anxiety presented to the ED from orthopedics office. She received bilateral steroid injections for the bursitis and after the procedure went to the waiting room developing sudden onset lightheadedness, increased thirst, aphasia, and generalized weakness. She called her who came to assist and upon standing felt like her b/l legs could not support her. The symptoms started resolving after about 30 minutes with total resolution around 60 minutes. On arrival to pt hypertensive at 165/75, no tachycardia or hypoxia. Head CT negative for acute intracranial pathology. CTA head and neck unremarkable without any stenosis of the carotid or vertebral arteries of intracranial large vessel occlusion. No evidence of infarction. MRI brain showing chronic small vessel ischemic changes without the periventricular white matter. Hematology and chemistry studies wtihout significant abnormality. EKG showed NSR, rate 72, no REN. Did have echocardiogram performed one week ago showing normal LV systolic function with EF 60-65%. No valvular abnormality. She did have cataract surgery bilaterally 6 weeks ago. Patient has no complaints or residual deficits at this time. Pt seen and examined at bedside in the presence of her . <KATRIN Verduzco - Last Filed: 08/04/22 18:40> Review of Systems Review of Systems: General: No fevers, malaise, unintentional weight loss HEENT: +increased thirst. No blurred vision, diplopia. No sore throat, nasal congestion, rhinorrhea, sinus pain, ear pain Cardiovascular: No chest pain, palpitations, or leg edema Respiratory: No shortness of breath, wheezing, cough GI: No abdominal pain, nausea, vomiting, diarrhea, constipation, melena, hematochezia : No dysuria, hematuria, increased urinary frequency, decreased urinary output MSK: No myalgia, back pain Neuro: +aphasia, +lightheadedness, +headache, +generalized weakness. No focal weakness, paresthesias Skin: No rashes or lesions <KATRIN Verduzco - Last Filed: 08/04/22 18:40> [facility] Medical History: Medical History Anxiety disorder Dyslipidemia History of left breast cancer HTN (hypertension) Low back pain Nasal sinus congestion On anticoagulant therapy On beta kemal at home Paroxysmal atrial fibrillation Pruritic intertrigo Vaginal pruritus <KATRIN Verduzco - Last Filed: 08/04/22 18:40> Family History: Family History Father Enlarged heart Hyperlipidemia Mother Uterine cancer Maternal Aunt Breast cancer Brother Mental health disorder Sister Mental health disorder Sister No problems noted. Son No problems noted. Son No problems noted. <KATRIN Verduzco - Last Filed: 08/04/22 18:40> Surgical History: Surgical History History of cataract extraction History of lumpectomy of left breast <KATRNI Verduzco - Last Filed: 08/04/22 18:40> Social History: Social History Household Members: Spouse Housing: House Are you a primary healthcare associate to a significant other at home: No Do you presently have visiting nurse or other home services: No Alcohol intake: never Patient Tobacco Use Status: Never used Tobacco e-Cigarette/Vaping Use: Never Used Second Hand Smoke Exposure: No service: No Current occupational status: retired Cognitive needs: No Hearing needs: No Vision needs: Yes <KATRIN Verduzco - Last Filed: 08/04/22 18:40> Meds Allergies/Adverse reactions: Allergies Allergy/AdvReac Type Severity Reaction Status Date / Time bupropion [From Wellbutrin] Allergy Unknown burning Verified 08/04/22 13:34 sensation citalopram Allergy Unknown burning Verified 08/04/22 13:34 sensatin in skin <KATRIN Verduzco - Last Filed: 08/04/22 18:40> Active Medications: Current Medications Lorazepam (Lorazepam 0.5 Mg Tablet) 0.5 mg PO ONCE ONE Stop: 08/04/22 17:46 Pharmacy Consult (Consult Rx Perform Med Rec) 1 each MISCELLANE ONCE PRN PRN Reason: Consult order <KATRIN Verduzco - Last Filed: 08/04/22 18:40> Home medications: Home Medications Medication Instructions Recorded Confirmed Last Taken Type cholecalciferol (vitamin D3) 25 25 mcg PO DAILY 08/12/20 08/06/22 Unknown History mcg (1,000 unit) capsule fluticasone propionate 50 1 spray intranasal BID PRN Allergy 08/04/22 08/06/22 Unknown History mcg/actuation nasal Symptoms spray,suspension (Flonase Allergy Relief) <KATRIN Verduzco Last Filed: 08/04/22 18:40> Physical Exam Vital Signs and Narrative: Vital Signs: Last Vital Signs Temp 98.5 F 08/04/22 17:43 Pulse 77 08/04/22 17:43 Resp 18 08/04/22 17:43 BP 199/67 H 08/04/22 17:43 Pulse Ox 96 08/04/22 17:43 O2 Del Method 08/04/22 17:43 BMI result Body Mass Index 33.5 <KATRIN Verduzco Last Filed: 08/04/22 18:40> Constitutional - Awake and Alert, No apparent distress Eyes - PERRLA, EOMI Cardiovascular - S1S2, RRR, No edema Respiratory - Normal lung expansion, Normal respiratory effort, No respiratory distress, CTA bilaterally Gastrointestinal - NT / ND; +BS; No rebound or guarding - No CVA tenderness Extremities - no calf tenderness bilaterally, no swelling Skin - Warm/Dry Neurological - Alert & oriented x3, CN II-XII in tact, normal finger to nose testing. 5/5 strength BUE and BLE, sensation in tact. 2+ patellar reflexes, downgoing babinski Psychological - Appropriate affect <KATRIN Verduzco Last Filed: 08/04/22 18:40> Results Labs CBC and Chem 7: : 08/04/22 15:46 08/04/22 15:46 <KATRIN Verduzco Last Filed: 08/04/22 18:40> Labs: Laboratory Results - last 24 hr 08/04/22 08/04/22 08/04/22 14:59 15:00 15:46 MCV MCH MCHC RDW Plt Count MPV Immature Gran % (Auto) Neut % (Auto) Lymph % (Auto) [place] % (Auto) Eos % (Auto) Baso % (Auto) Lymph # (Auto) [place] # (Auto) Eos # (Auto) Baso # (Auto) Abs Immat Gran (auto) Absolute Neuts (auto) Absolute Nucleated RBC Nucleated RBC % (auto) PT Whole Blood PT 11.9 INR Whole Blood INR 1.0 APTT Anion Gap 14 Estim Creat Clear Calc 45.1 Estimated GFR 48 POC Glucose 149 H Random Glucose 147 H Calcium 9.7 Magnesium 1.8 Total Bilirubin 0.4 Direct Bilirubin 0.2 AST 36 H D ALT 42 H Alkaline Phosphatase 66 Troponin I High Sens Total Protein 7.9 Albumin 4.1 08/04/22 08/04/22 08/04/22 15:46 15:46 15:46 MCV 92.7 MCH 30.7 MCHC 33.1 RDW 13.0 Plt Count 276 MPV 11.0 Immature Gran % (Auto) 0.3 Neut % (Auto) 77.7 H Lymph % (Auto) 14.2 L [place] % (Auto) 6.3 Eos % (Auto) 0.5 Baso % (Auto) 1.0 Lymph # (Auto) 1.0 L [place] # (Auto) 0.5 Eos # (Auto) 0.0 Baso # (Auto) 0.1 Abs Immat Gran (auto) 0.02 Absolute Neuts (auto) 5.7 Absolute Nucleated RBC 0.000 Nucleated RBC % (auto) 0.0 PT 11.0 Whole Blood PT INR 1.0 Whole Blood INR APTT 32.6 Anion Gap Estim Creat Clear Calc Estimated GFR POC Glucose Random Glucose Cancelled Calcium Magnesium Total Bilirubin Direct Bilirubin AST ALT Alkaline Phosphatase Troponin I High Sens Total Protein Albumin 08/04/22 15:46 MCV MCH MCHC RDW Plt Count MPV Immature Gran % (Auto) Neut % (Auto) Lymph % (Auto) [place] % (Auto) Eos % (Auto) Baso % (Auto) Lymph # (Auto) [place] # (Auto) Eos # (Auto) Baso # (Auto) Abs Immat Gran (auto) Absolute Neuts (auto) Absolute Nucleated RBC Nucleated RBC % (auto) PT Whole Blood PT INR Whole Blood INR APTT Anion Gap Estim Creat Clear Calc Estimated GFR POC Glucose Random Glucose Calcium Magnesium Total Bilirubin Direct Bilirubin AST ALT Alkaline Phosphatase Troponin I High Sens 5.1 Total Protein Albumin <KATRIN Verduzco - Last Filed: 08/04/22 18:40> Imaging Radiologist's Impressions: Impressions Head CT 08/04/22 15:05 IMPRESSION: -No acute intracranial hemorrhage or mass effect. -Focal high attenuation distal basilar artery suspected to represent calcification. CTA head and neck pending, separate report. Head/Neck CTA 08/04/22 15:19 IMPRESSION: Unremarkable CT angiogram of the head and neck. Specifically there is no stenosis of the cervical carotid or vertebral arteries. No intracranial large vessel occlusion. Grossly no evidence of acute territorial infarct. No abnormal intracranial mass or enhancement. This critical result was discussed with Nupur Esparza at 3:23 PM on 08/04/2022 and it was ascertained that the content and urgency of the report was understood at the time of direct communication. Brain MRI 08/04/22 16:35 IMPRESSION: There are scattered chronic small vessel ischemic changes within the periventricular white matter. Otherwise unremarkable examination. No evidence of acute territorial infarct or hemorrhage. <KATRIN Verduzco - Last Filed: 08/04/22 18:40> Assessment and Plan (1) TIA (transient ischemic attack): Status: Acute <KATRIN Verduzco - Last Filed: 08/04/22 18:40> 72 year old female with history of paroxysmal atrial fibrillation on xarelto (though noncompliant last 3 weeks as she had wanted to take ibuprofen for her pain), htn, hld, bilateral trochanteric bursitis, hisotyr breast cancer, and anxiety to be observed for probable TIA with full resolution of symptoms in the setting of noncompliance with xarelto. #TIA -Developed sudden onset lightheadedness, increased thirst, aphasia, bilateral upper and lower extremity weakness, and anxiety following cortisone injections b.l hips this afternoon. Full resolution of symptoms within 1 hour -CT head and CTA head and neck unremarkable. MRI showing microvascular ischemia, but no infarct -Likely due to noncompliance with xarelto x3 weeks as she was taking nsaids for pain. Antiplatelet therapy not likely indicated -Neuro consult -Lipid panel ordered -Increase atorvastatin to 40mg -Resume xarelto -Limited echo ordered to evaluate for any cardiac thrombus -ABCD2 score 4 -Observe on telemetry #PAF- rate controlled -EKG showing NSR, rate 72, no REN -Resume xarelto -continue flecainide -Continue metoprolol # hypertension - resume metoprolol # HLD - increase atorvastatin to 40 mg # GERD - continue famotidine # anxiety - lorazepam p.r.n. DVT prophylaxis- resume xarelto Full code <KATRIN Verduzco - Last Filed: 08/04/22 18:40> 72 year old female with history of paroxysmal atrial fibrillation on xarelto (though noncompliant last 3 weeks as she had wanted to take ibuprofen for her pain), htn, hld, bilateral trochanteric bursitis, hisotyr breast cancer, and anxiety to be observed for probable TIA with full resolution of symptoms in the setting of noncompliance with xarelto. #TIA -Developed sudden onset lightheadedness, increased thirst, aphasia, bilateral upper and lower extremity weakness, and anxiety following cortisone injections b.l hips this afternoon. Full resolution of symptoms within 1 hour -CT head and CTA head and neck unremarkable. MRI showing microvascular ischemia, but no infarct -Likely due to noncompliance with xarelto x3 weeks as she was taking nsaids for pain. Antiplatelet therapy not likely indicated -Neuro consult -Lipid panel ordered -Increase atorvastatin to 40mg -Resume xarelto -Limited echo ordered to evaluate for any cardiac thrombus -ABCD2 score 4 -Observe on telemetry #PAF- rate controlled -EKG showing NSR, rate 72, no REN -Resume xarelto -continue flecainide -Continue metoprolol # hypertension - resume metoprolol # HLD - increase atorvastatin to 40 mg # GERD - continue famotidine # anxiety - lorazepam p.r.n. DVT prophylaxis- resume xarelto Full code Addendum to history and physical by mid-level provider, KATRIN Moon I interviewed and examined the patient. I discussed their presentation and management with the mid-level provider. I reviewed the history and physical and agree with the documentation, with the following additions and corrections: 72yo F with pAF on rivaroxaban though off for past 3 wk as pt wanted to take IBU for back/hip pain. Developed lightheadedness + expressive aphasia + generalized weakneess after cortisone injection of hips. Now neurologically normal- no focal findings on exam. Concern for TIA vs. vasovagal reaction to cortisone reaction. Resume rivaroxaban and milieu counselor on importance of not missing any doses. Neuro consult. high-intensity statin. <Purvi Jeter MD - Last Filed: 08/08/22 12:07> Quality Stroke Does the patient have a stroke diagnosis?: No <KATRIN Verduzco - Last Filed: 08/04/22 18:40> VTE Prior VTE?: No <KATRIN Verduzco - Last Filed: 08/04/22 18:40> VTE Risk Level:: Medical - moderate - high <KATRIN Verduzco - Last Filed: 08/04/22 18:40> VTE Device Contraindication: Treatment Not Indicated <KATRIN Verduzco - Last Filed: 08/04/22 18:40> VTE Drug Contraindication: N/A - Med Ordered <KATRIN Verduzco - Last Filed: 08/04/22 18:40>
[2022-08-04] MEDS: LORazepam 0.5 MG TABLET PO ×2 (18:00→22:50)
[2022-08-04 18:33] VITALS: BP 171/63; PULSE 74
[2022-08-04 18:33] LABS: COVID-19 Test Negative (Negative); IDNOW Serial# 16C4AD1C
[2022-08-04 19:16] VITALS: BP 134/49; PULSE 65; RESP 19; TEMP 36.8; O2SAT 96
--- NOTE | 2022-08-04 19:54 | PC.NURSE ---
Pt. has a bed on [facility], bed 357-1. Called to give report, RN currently unavailable to take report, they will call when available.
[2022-08-04 20:36] LABS: Troponin-I High Sensitivity 31.4 ng/L (<3.5-17.0)
[2022-08-04 20:50] VITALS: BMI 33.0
[2022-08-04 21:24] VITALS: BP 149/61; PULSE 71; RESP 17; TEMP 36.4; O2SAT 95
[2022-08-04] MEDS: Acetaminophen 325 MG TABLET 650 MG PO (22:50)
[2022-08-04] MEDS: Flecainide Acetate 50 MG TABLET PO (22:50)
[2022-08-04] MEDS: Metoprolol Tartrate 50 MG TABLET PO (22:50)
[2022-08-04] MEDS: Rivaroxaban 20 MG TABLET PO (22:50)
[2022-08-05] VITALS: BP 147/66; PULSE 62; RESP 18; TEMP 36.6; O2SAT 98
[2022-08-05 04:00] VITALS: BP 146/66; PULSE 54; RESP 18; TEMP 36.4; O2SAT 98
[2022-08-05 06:04] LABS: Cholesterol 186 mg/dL; HDL Cholesterol 57 mg/dL; LDL Cholesterol Calculated 114 mg/dl; Triglycerides 76 mg/dL
--- NOTE | 2022-08-05 07:00 | CA_ITS ---
Transthoracic Echocardiogram Patient (Last, First, Middle): Shellie Salgado R Gender: Female Date of : 1950 Age: 72 Procedure Date: 08/05/2022 Procedure Type: Transthoracic Echocardiogram Location: S3E Height: 157.48 cm Weight: 81.65 kg BSA: 1.83 m2 Heart Rate: 64 bpm BP: 144 / 66 mmHg Loom Overhauler: [place] Referring MD: Missy WILKES Symptoms: TIA/Rule out PFO Study Quality: Fair ECG Rhythm: Sinus Conclusions: - There is no evidence of interatrial shunt by agitated saline. Findings Atria There is no evidence of interatrial shunt by agitated saline. (rest and valsalva). Prior Study Comparison No significant change compared to prior study dated: 07/26/2022. Updated in Other Vendor System with Status of Final Gabriel Woody MD electronically signed on 08/05/2022 3:11:58 PM with status of Final
[2022-08-05 07:26] VITALS: BP 131/67; PULSE 61; RESP 17; TEMP 36.6; O2SAT 97
[2022-08-05] MEDS: Flecainide Acetate 50 MG TABLET PO (09:22)
[2022-08-05] MEDS: Cholecalciferol (Vitamin D3) 25 MCG TABLET PO (09:22)
[2022-08-05] MEDS: Atorvastatin Calcium 40 MG TABLET PO (09:22)
[2022-08-05] MEDS: Metoprolol Tartrate 50 MG TABLET PO (09:23)
--- NOTE | 2022-08-05 09:37 | MHC.CM.PN ---
HICKS 08/05/22, EMR REVIEWED, CM MET W/PT WHO REPORTS SHE LIVES W/, IS INDEPENDENT W/ALL CARE, HAS A FWW HOWEVER ONLY USED IT AFTER HER KNEE SURGERY, NO HOME SERVICES, PT VERIFIES PCP IS LEONIE HERNANDEZ, [facility] X[facility], AND REPORTS HER HCP IS [facility] [phone], COPY REQUESTED. RAMANDEEP D/C LATER TODAY HOME NO SERVICES W/FAMILY FOR TRANSPORT.
[2022-08-05 11:13] VITALS: BP 143/66; PULSE 64; RESP 18; TEMP 37; O2SAT 95
--- NOTE | 2022-08-05 13:08 | PM.NEUROCN ---
History of Present Illness Data of Consult Service Date: 08/05/22 Primary Care Provider: Bijal Umana MD HPI Reason for consult: Dizziness 72 years old woman with atrial fibrillation who has been taking Xarelto but stopped taking it for few days because she wanted to take at well for bursitis. Yesterday she had injection treatment for bursitis in both legs and after that she walked to the bathroom and with their she felt dizziness lightheaded and as with dry mouth and generalized weakness. She was attended and noted to be not speaking and then brought to emergency room. A little while later her symptoms improved. Extensive investigations did not reveal any obvious abnormality. She was very concerned that she might have a stroke type symptom due to not taking Xarelto. Review of Systems Review of Systems: Bilateral leg pain. [facility] Past Medical History Medical History Anxiety disorder Dyslipidemia History of left breast cancer HTN (hypertension) Low back pain Nasal sinus congestion On anticoagulant therapy On beta kemal at home Paroxysmal atrial fibrillation Pruritic intertrigo Vaginal pruritus Family History Family History Father Enlarged heart Hyperlipidemia Mother Uterine cancer Maternal Aunt Breast cancer Brother Mental health disorder Sister Mental health disorder Sister No problems noted. Son No problems noted. Son No problems noted. Surgical History Surgical History History of cataract extraction History of lumpectomy of left breast Social History Social History Household Members: Spouse Housing: House Are you a primary lead caregiver to a significant other at home: No Do you presently have visiting nurse or other home services: No Alcohol intake: never Patient Tobacco Use Status: Never used Tobacco Smoked in Last 30 Days: No e-Cigarette/Vaping Use: Never Used Second Hand Smoke Exposure: No Use of substances other than those prescribed or required for medical reasons: No Substance Use Type Other:: CBD Substance Use Frequency: Occasionally Last Used Substance: Days (ago) Currently Displaying Signs/Symptoms of Drug Intoxication Withdrawal: No Any prior treatment program specific to substance use: No Have you been hit, kicked, punched, or otherwise hurt by someone within the past year? If so, by whom?: No Do you feel safe in your current relationship?: Yes Is there a partner from a previous relationship who is making you feel unsafe now?: No Are you made to feel afraid or neglected: No [employer] Healthcare Practices: moravian Advance Directives: No Advance Directives Information Provided: Yes Do you have thoughts of harming others: None Do you have a plan to hurt others: No Plan Recently lost weight without trying: No Eating poorly because of decreased appetite: No Nutrition Risks: No Nutritional Risk Patient : No : No Poor oral hygiene: No service: No Current occupational status: retired Cognitive needs: No Hearing needs: No Vision needs: Yes Meds Allergies Allergy/AdvReac Type Severity Reaction Status Date / Time bupropion [From Wellbutrin] Allergy Unknown burning Verified 08/04/22 13:34 sensation citalopram Allergy Unknown burning Verified 08/04/22 13:34 sensatin in skin Active Medications: Current Medications Acetaminophen (Acetaminophen 325 Mg Tablet) 650 mg PO Q6H PRN PRN Reason: Pain, Mild (Pain Scale 1-3) Last Admin: 08/04/22 22:50 Dose: 650 mg Atorvastatin Calcium (Atorvastatin Calcium 40 Mg Tablet) 40 mg PO DAILY [facility] Last Admin: 08/05/22 09:22 Dose: 40 mg Docusate Sodium (Docusate Sodium 100 Mg Capsule) 100 mg PO DAILY PRN PRN Reason: Constipation Famotidine (Famotidine 20 Mg Tablet) 20 mg PO DAILY [facility] Last Admin: 08/05/22 09:23 Dose: Not Given Flecainide Acetate (Flecainide Acetate 50 Mg Tablet) 50 mg PO BID [facility] Last Admin: 08/05/22 09:22 Dose: 50 mg Fluticasone Propionate (Fluticasone Propionate Nasal 16 Gm [place]) 1 spray NOSTRIL-B BID PRN PRN Reason: Allergy Symptoms Lorazepam (Lorazepam 0.5 Mg Tablet) 0.5 mg PO DAILY PRN PRN Reason: anxiety Last Admin: 08/04/22 22:50 Dose: 0.5 mg Melatonin (Melatonin 3 Mg Tablet) 6 mg PO BEDTIME PRN PRN Reason: insomnia Metoprolol Tartrate (Metoprolol Tartrate 50 Mg Tablet) 50 mg PO BID [facility]; Protocol Last Admin: 08/05/22 09:23 Dose: 50 mg Ondansetron HCl (Ondansetron Hcl 4 Mg/2 Ml Vial) 4 mg IVPUSH Q8H PRN PRN Reason: Nausea and Vomiting Pharmacy Consult (Consult Rx Perform Med Rec) 1 each MISCELLANE ONCE PRN PRN Reason: Consult order Rivaroxaban (Rivaroxaban 20 Mg Tablet) 20 mg PO BEDTIME [facility] Last Admin: 08/04/22 22:50 Dose: 20 mg Vitamin D (Cholecalciferol (Vitamin D3) 25 Mcg Tablet) 25 mcg PO DAILY [facility] Last Admin: 08/05/22 09:22 Dose: 25 mcg Home Medications Medication Instructions Recorded Confirmed Last Taken Type cholecalciferol (vitamin D3) 25 25 mcg PO DAILY 08/12/20 08/04/22 Unknown History mcg (1,000 unit) capsule fluticasone propionate 50 1 spray intranasal BID PRN Allergy 08/04/22 08/04/22 Unknown History mcg/actuation nasal Symptoms spray,suspension (Flonase Allergy Relief) naproxen 500 mg tablet 1 tab PO BID 08/04/22 08/04/22 Unknown History Physical Exam Vital Signs: Vital Signs: Last Vital Signs Temp 98.6 F 08/05/22 11:13 Pulse 64 08/05/22 11:13 Resp 18 08/05/22 11:13 BP 143/66 H 08/05/22 11:13 Pulse Ox 95 08/05/22 11:13 O2 Del Method 08/05/22 11:13 BMI result Body Mass Index 33.0 Neuro: Other: Alert and awake with normal spontaneity of speech fluency comprehension and affect. Face was symmetrical. Visual rashid are full. There was no obvious focal weakness. Results Labs CBC & Chem 7: 08/04/22 15:46 08/04/22 15:46 Labs: Short CBC 08/04/22 Range/Units 15:46 WBC 7.3 (4.8-10.8) X10*3/uL Hgb 14.3 (12.0-16.0) g/dl Hct 43.2 (37.0-47.0) % Plt Count 276 (160-400) X10*3/uL BMP 08/04/22 15:46 Sodium 137 Potassium 4.4 Chloride 101 Carbon Dioxide 26 BUN 20 H Creatinine 1.11 Calcium 9.7 Liver Function 08/04/22 Range/Units 15:46 Total Bilirubin 0.4 (0.0-1.0) mg/dL Direct Bilirubin 0.2 (0.0-0.5) mg/dL AST 36 H D (5-31) U/L ALT 42 H (0-31) U/L Alkaline Phosphatase 66 (39-117) U/L Albumin 4.1 (3.5-5.0) g/dL Noncontrast MRI of brain did not reveal any acute abnormality. Few chronic small ischemic lesions were noted. CTA of brain and neck did not reveal any significant pathology. Assessment and Plan (1) Dizziness: Status: Acute 72 years old woman who had bilateral cortisone injection yesterday and after that she stood up went to bathroom felt lightheaded and dizzy had dry mouth and generalized weakness and was noted to be having difficulty speaking. Symptoms resolved in few minutes. The set of symptoms are suggestive more of a vasovagal attack or reaction to a medication then stroke. Seizure disorder is a possibility was seems unlikely at this time my recommendation is to just put her back on Xarelto and manage her pain. She might be suffering from polymyalgia rheumatica type of symptomatology. I suggest checking CPK and sed rate. Procedures Date of Service Date of Service: 08/05/22
[2022-08-05 15:24] VITALS: BP 147/67; PULSE 60; RESP 16; TEMP 36.9; O2SAT 97
[2022-08-05 15:44] LABS: Erythrocyte Sedimentation Rate 34 MM/HR (0-20)
[2022-08-05 16:50] LABS: C Reactive Protein 0.16 mg/dL (< or = 0.50)
--- NOTE | 2022-08-05 17:05 | PM.DS ---
DS: Providers Provider Date of Service: 08/05/22 Date of admission: 08/04/22 18:26 Date of discharge: 08/05/22 Primary care physician: Bijal Umana MD Admitting clinician: Missy Moon Attending physician on admission: Purvi Jeter Consults: 08/04/22 18:22 Consult to Neurology Routine Consulting Provider: [facility] Reason for consultation: TIA Attending physician on discharge: Purvi Jeter Discharging clinician: jarod DS: Diagnosis Discharge Diagnosis (1) Dizziness: Status: Acute DS: Summary Hospital Course Hospital Course: HPI and admission: 72 year old female with history of paroxysmal atrial fibrillation on xarelto (though noncompliant last 3 weeks as she had wanted to take ibuprofen for her pain), htn, hld, bilateral trochanteric bursitis, hisotyr breast cancer, and anxiety presented to the ED from orthopedics office. She received bilateral steroid injections for the bursitis and after the procedure went to the waiting room developing sudden onset lightheadedness, increased thirst, aphasia, and generalized weakness. She called her who came to assist and upon standing felt like her b/l legs could not support her. The symptoms started resolving after about 30 minutes with total resolution around 60 minutes. On arrival to pt hypertensive at 165/75, no tachycardia or hypoxia. Head CT negative for acute intracranial pathology. CTA head and neck unremarkable without any stenosis of the carotid or vertebral arteries of intracranial large vessel occlusion. No evidence of infarction. MRI brain showing chronic small vessel ischemic changes without the periventricular white matter. Hematology and chemistry studies wtihout significant abnormality. EKG showed NSR, rate 72, no REN. Did have echocardiogram performed one week ago showing normal LV systolic function with EF 60-65%. No valvular abnormality. She did have cataract surgery bilaterally 6 weeks ago. Patient has no complaints or residual deficits at this time. Pt seen and examined at bedside in the presence of her . Hospital course: Patient observed on telemetry unit overnight given nonspecific symptoms including sudden onset lightheadedness, increased thirst, aphasia, and generalized weakness that resolved completely wihtin one hour. Given noncompliance with Xarelto for the last 3 weeks, there was concern for TIA with ABCD2 risk score 4. Head CT, CTA head and neck unremarkable and brain MRI negative for any acute infarction but showing a few chronic small vessel ischemic changes in the white matter. Hospital course was uneventful. Complete echocardiogram was performed last week but follow-up limited echocardiogram was performed to rule out cardiac thrombus which was negative. She was evaluated by Neurology who felt the symptoms were more consistent with a vasovagal episode versus medication reaction following cortisone injection procedures. Discussed the importance of compliance with Xarelto to prevent future CVA. She is advised to follow-up with her primary care doctor and is given information on physiatry offices in the area show her back pain can be better managed so that she can avoid NSAIDs. LDL was slightly elevated at 116. The patient did tell me that higher dose of atorvastatin resulted in myalgias. Will discontinue atorvastatin in favor of rosuvastatin 10 mg to be taken on a daily basis. No indication for antiplatelet therapy at this time. Time spent discussing smoking cessation with patient: more than 10 minutes Time Spent with Patient Time attestation: Total time spent providing and/or coordinating discharge services: Discharge coordination time: Greater than 30 minutes Quality: Safe Use of Opioids Does Pt have an Active Cancer Diagnosis on the Problem List?: No Quality: Stroke Does the patient have a stroke diagnosis?: No Physical Exam Vital Signs: Vital Signs: Last Vital Signs Temp 98.5 F 08/05/22 15:24 Pulse 60 08/05/22 15:24 Resp 16 08/05/22 15:24 BP 147/67 H 08/05/22 15:24 Pulse Ox 97 08/05/22 15:24 O2 Del Method 08/05/22 15:24 BMI result Body Mass Index 33.0 Constitutional - Awake and Alert, No apparent distress Eyes - PERRLA, EOMI Cardiovascular - S1S2, RRR, No edema Respiratory - Normal lung expansion, Normal respiratory effort, No respiratory distress, CTA bilaterally Skin - Warm/Dry Neurological - Alert & oriented x3 Psychological - Appropriate affect DS: Data Data Completed and Pending Labs on day of discharge: Laboratory Results - last 24 hr 08/04/22 08/04/22 08/04/22 14:59 15:00 15:46 ESR 34 H Whole Blood PT 11.9 Whole Blood INR 1.0 POC Glucose 149 H Total Creatine Kinase Troponin I High Sens C-Reactive Protein Triglycerides Cholesterol LDL Cholesterol, Calc HDL Cholesterol COVID-19 ([facility]) COVID-19 Clin Com 08/04/22 08/04/22 08/05/22 18:04 19:45 05:15 ESR Whole Blood PT Whole Blood INR POC Glucose Total Creatine Kinase 294 H Troponin I High Sens 31.4 H D C-Reactive Protein 0.16 Triglycerides 76 Cholesterol 186 LDL Cholesterol, Calc 114 HDL Cholesterol 57 COVID-19 ([facility]) Negative COVID-19 Clin Com See Note Imaging MRI - abdomen: Radiologist's impression: ITS Impressions Head CT 08/04/22 15:05 IMPRESSION: -No acute intracranial hemorrhage or mass effect. -Focal high attenuation distal basilar artery suspected to represent calcification. CTA head and neck pending, separate report. Head/Neck CTA 08/04/22 15:19 IMPRESSION: Unremarkable CT angiogram of the head and neck. Specifically there is no stenosis of the cervical carotid or vertebral arteries. No intracranial large vessel occlusion. Grossly no evidence of acute territorial infarct. No abnormal intracranial mass or enhancement. This critical result was discussed with Nupur Esparza at 3:23 PM on 08/04/2022 and it was ascertained that the content and urgency of the report was understood at the time of direct communication. Brain MRI 08/04/22 16:35 IMPRESSION: There are scattered chronic small vessel ischemic changes within the periventricular white matter. Otherwise unremarkable examination. No evidence of acute territorial infarct or hemorrhage. Chest X-Ray 08/04/22 17:25 IMPRESSION: No acute intrathoracic disease. No hip fracture. Discharge Plan Discharge Anticipated Discharge Date/Time: 08/05/22 17:06 Patient Disposition: Home, Self-Care Discharge Diagnosis: Dizziness, vasovagal reaction following injection Referrals: Bijal Umana MD [Primary Care Provider] - 1 Week Discharge Medications: New rosuvastatin 10 mg tablet 10 mg PO DAILY Qty: 30 0RF Continued fluticasone propionate [Flonase Allergy Relief] 50 mcg/actuation spray,suspension 1 spray intranasal BID PRN (Reason: Allergy Symptoms) Rx Instructions: administer into each nostril cholecalciferol (vitamin D3) 25 mcg (1,000 unit) capsule 25 mcg PO DAILY lorazepam 0.5 mg tablet 0.5 mg PO DAILY PRN (Reason: anxiety) Qty: 30 0RF metoprolol tartrate 50 mg tablet 50 mg PO BID Qty: 180 3RF Xarelto 20 mg tablet 20 mg PO BEDTIME Qty: 90 3RF flecainide 50 mg tablet 50 mg PO BID Qty: 190 3RF famotidine [Pepcid] 20 mg tablet 20 mg PO DAILY Qty: 30 3RF Discontinued naproxen 500 mg tablet 1 tab PO BID atorvastatin 10 mg tablet 10 mg PO DAILY Qty: 90 1RF Discharge Orders: Discharge Order (Routine); Ordered 08/05/22 Ordered By: Missy Moon Diet: Regular diet Activity on Discharge: As tolerated Stand Alone Forms: Patient Portal Discharge page Care Plan Goals: Prevent recurrence of symptoms. Prevent stroke. Health Concerns: Noncompliance with xarelto with increased risk of TIA/stroke Probable vasovagal reaction vs medication reaction following cortisone injection procedure High cholesterol Plan of Treatment: Reduce risk of TIA/stroke by taking your Xarelto every day without skipping doses as having AFib makes you 5x more likely to develop a stroke without anticoagulation Increase fluid intake especially around procedures and sit or lay for around 15-30 minutes following a procedure Increase atorvastatin to 40mg daily Aspirin not indicated Follow up with PCP 1 week Assessment: You presented to the ED with nonspecific symptoms including dizziness, weakness, dry mouth, speech difficulty, headache following medical procedure with concern for stroke. Your CT head and MRI were negative for any acute stroke but does show few chronic small ischemic lesions which are not uncommon in older brains especially with history of hypertension. While there is no discrete evidence of TIA available, this does remain a possible diagnosis given your noncompliance with Xarelto. However given the non specificity of your symptoms, neurology feels that your symptoms are more suggestive of a vasovagal attack or medication reaction following the cortisone injections. Your echocardiogram was negative for any clots.
== END 2022-08-05 17:08 | disposition home or self-care (01) ==
LOC: HO.ED 17:48 → HO.S3 20:36 → HO.EDOVER 08-05 13:53
PROVIDERS: Physician Assistant; Admitting Provider Physician Assistant; Emergency Provider Student in an Organized Health Care Education/Training Program; PCP Internal Medicine; Visit Provider Family Medicine
DX: R55 Syncope and collapse (principal); R42 Dizziness and giddiness; I48.0 Paroxysmal atrial fibrillation; I10 Essential (primary) hypertension; R26.81 Unsteadiness on feet; F41.9 Anxiety disorder, unspecified; R47.01 Aphasia; Z79.01 Long term (current) use of anticoagulants; Z20.822 Contact with and (suspected) exposure to COVID-19; Z79.899 Other long term (current) drug therapy; Z91.199 Patient's noncompliance with other medical treatment and regimen due to unspecified reason
CPT/HCPCS: 36415; 70450; 70496; 70498; 70551; 71045; 80048; 80061; 80076; 82550; 82947; 83735; 84484; 85025; 85610; 85652; 85730; 86140; 87635; 93005; 93308; 97161; 97165; 99219; 99285; Q9967

== ENCOUNTER → 2022-08-12 13:01 | Outpatient (BNVA) | payer MEDICARE, OTHER, SELFPAY | PROVIDERS: PCP Internal Medicine; Referring Provider Internal Medicine; Visit Provider Internal Medicine Cardiovascular Disease | DX: I48.0 Paroxysmal atrial fibrillation (principal); I10 Essential (primary) hypertension | CPT/HCPCS: 99212 ==

== ENCOUNTER 2022-08-23 11:25 | Outpatient (REF) | payer MEDICARE, OTHER, SELFPAY ==
--- NOTE | ~2022-08-23 | XR_ITS ---
EXAMINATION: XR LUMBAR SPINE XR SI JOINTS CLINICAL INFORMATION: Low back pain. COMPARISON: None TECHNIQUE: Lumbar spine 3 views. SI joints 3 views. FINDINGS: LUMBAR SPINE: There is normal lumbar lordosis. The vertebral heights and alignment is normal. There is mild loss of L4-L5 and L5-S1 disc heights. No visible acute fracture, dislocation or subluxation seen. There is moderate bilateral L4-L5 facet joint arthropathy and hypertrophy. The paravertebral soft tissues are normal. SI JOINTS: The SI joints are symmetrical without erosive changes. There is minimal sclerosis along the iliac site of bilateral SI joints. XR/XR lumbar spine 2-3V IMPRESSION: Degenerative disc changes L4-L5 and L5-S1 disc levels with moderate bilateral L4-L5 facet joint arthropathy. No visible acute fracture, dislocation or subluxation seen. Suspect mild bilateral sacroiliitis.
--- NOTE | ~2022-08-23 | XR_ITS ---
EXAMINATION: XR LUMBAR SPINE XR SI JOINTS CLINICAL INFORMATION: Low back pain. COMPARISON: None TECHNIQUE: Lumbar spine 3 views. SI joints 3 views. FINDINGS: LUMBAR SPINE: There is normal lumbar lordosis. The vertebral heights and alignment is normal. There is mild loss of L4-L5 and L5-S1 disc heights. No visible acute fracture, dislocation or subluxation seen. There is moderate bilateral L4-L5 facet joint arthropathy and hypertrophy. The paravertebral soft tissues are normal. SI JOINTS: The SI joints are symmetrical without erosive changes. There is minimal sclerosis along the iliac site of bilateral SI joints. XR/XR sacroiliac joint 1-2V IMPRESSION: Degenerative disc changes L4-L5 and L5-S1 disc levels with moderate bilateral L4-L5 facet joint arthropathy. No visible acute fracture, dislocation or subluxation seen. Suspect mild bilateral sacroiliitis.
== END 2022-08-23 11:26 | disposition home or self-care (01) ==
LOC: HO.HMGCX 11:25
PROVIDERS: PCP Internal Medicine; Visit Provider Physical Medicine & Rehabilitation
DX: M54.50 Low back pain, unspecified (principal)
CPT/HCPCS: 72100; 72200

== ENCOUNTER 2022-09-02 12:56 | Outpatient (REF) | payer MEDICARE, OTHER, SELFPAY ==
--- NOTE | ~2022-09-02 | MM_ITS ---
EXAMINATION: MM SCREENING DIGITAL BREAST TOMOSYNTHESIS, BILATERAL CLINICAL INFORMATION: Screening. Asymptomatic. COMPARISON: Mammography: June 18, 2021 and studies dating back to November 24, 2015 TECHNIQUE: Digital breast tomosynthesis is performed in both the craniocaudal and mediolateral oblique views along with computer-aided detection (CAD). Synthesized 2D images are generated from the tomosynthesis. Additional left exaggerated craniocaudal view performed. FINDINGS: There are scattered areas of fibroglandular density (ACR BI-RADS breast composition Category b). There are no new significant masses, abnormal calcifications, or other abnormalities. Postsurgical change noted within the left breast from previous lumpectomy. MM/MM tomosynthesis screening BI IMPRESSION: No significant changes from prior exam. ASSESSMENT: BI-RADS 2: Benign RECOMMENDATION: Routine annual mammography screening. This patient's information was entered into a reminder system with a target due date for their next mammogram.
== END 2022-09-02 12:57 | disposition home or self-care (01) ==
LOC: HO.MAMMO 12:56
PROVIDERS: PCP Internal Medicine; Visit Provider Internal Medicine
DX: Z12.31 Encounter for screening mammogram for malignant neoplasm of breast (principal)
CPT/HCPCS: 77063; 77067

== ENCOUNTER → 2022-12-31 13:44 | Outpatient (BNVA) | payer MEDICARE, OTHER, SELFPAY | PROVIDERS: PCP Internal Medicine; Visit Provider Nurse Practitioner Family | DX: K21.9 Gastro-esophageal reflux disease without esophagitis (principal); K58.2 Mixed irritable bowel syndrome | CPT/HCPCS: 99212 ==

== ENCOUNTER → 2023-02-21 14:56 | Outpatient (BNVA) | payer MEDICARE, OTHER, SELFPAY | PROVIDERS: PCP Internal Medicine; Referring Provider Internal Medicine; Visit Provider Internal Medicine Cardiovascular Disease | DX: I48.91 Unspecified atrial fibrillation (principal) | CPT/HCPCS: 93005 ==

== ENCOUNTER 2023-05-17 11:24 | Outpatient (REF) | payer MEDICARE, OTHER, SELFPAY ==
[2023-05-17 14:02] LABS: Estimated Average Glucose 105 mg/dL; Hemoglobin A1c % 5.3 %
[2023-05-17 14:19] LABS: Alanine Aminotransferase 51 U/L (0-31); Anion Gap 12 (12-20); Aspartate Amino Transferase 55 U/L (5-31); Blood Urea Nitrogen 18 mg/dL (9-16); Calcium 9.8 mg/dL (8.4-10.2); Carbon Dioxide 26 mmol/L (22-29); Chloride 104 mmol/L (96-108); Cholesterol 177 mg/dL; Estimated Glomerular Filt Rate 46; Glucose Fasting 98 mg/dL (60-99); HDL Cholesterol 56 mg/dL; LDL Cholesterol Calculated 87 mg/dl; Potassium 4.3 mmol/L (3.3-5.1); Sodium 138 mmol/L (135-145); Triglycerides 172 mg/dL; Vitamin D 25-OH Total 77.2 ng/mL (>30)
== END 2023-05-17 11:25 | disposition home or self-care (01) ==
LOC: HO.HMGCLDS 11:24
PROVIDERS: PCP Internal Medicine; Visit Provider Internal Medicine
DX: E78.5 Hyperlipidemia, unspecified (principal); I10 Essential (primary) hypertension; R73.01 Impaired fasting glucose
CPT/HCPCS: 36415; 80048; 80061; 82306; 83036; 84450; 84460

== ENCOUNTER 2023-05-26 15:09 | Outpatient (AMB) | payer MEDICARE, OTHER, SELFPAY ==
[2023-05-26 15:46] VITALS: BP 162/90; PULSE 80; O2SAT 97
--- NOTE | 2023-05-26 15:46 | A.OFFPC_ITS ---
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 Accompanied by: Self / Same As Patient Allergies bupropion [From Wellbutrin] Allergy (Unknown, Verified 05/30/23 01:11) burning sensation citalopram Allergy (Unknown, Verified 05/30/23 01:11) burning sensatin in skin Medication List - Last Reconciled 05/26/23 by Bijal Umana MD amlodipine 5 mg PO DAILY cholecalciferol (vitamin D3) 25 mcg PO DAILY famotidine (Pepcid) 20 mg PO DAILY PRN fluticasone propionate 50 mcg/actuation (Flonase Allergy Relief) 1 spray intranasal BID PRN lorazepam 0.5 mg PO DAILY PRN metoprolol tartrate 50 mg PO BID rivaroxaban (Xarelto) 20 mg PO BEDTIME rosuvastatin 10 mg PO DAILY Tobacco use date assessed: 05/26/23 Fall risk assessment: No Falls in past year Last assessed Fall Risk: 05/26/23 Dental Screening Dental Screen Date: 05/26/23 Did you have a dental visit in the last 12 months?: Yes Did you have a dental problem in the last 6 months where you did not have access to dental care?: No Was dental information given to patient?: Patient has dentist HPI Blood in retina HPI Details 73-year-old lady with history of paroxysmal atrial fibrillation on xarelto , has hypertension, hyperlipidemia, history of bilateral trochanteric bursitis, history of breast cancer, and anxiety, here for a follow-up. She was recently diagnosed with bilateral retinal hemorrhages, and was told to follow-up with her PCP further evaluation. Has no history of trauma to the head, no strenuous exertion, denies headache , lightheadedness , eye pain but has some blurring of vision reported. [facility] Medical History (Updated 05/26/23 @ 16:23 by Bijal Umana MD) Anxiety disorder Current use of ferry terminal supervisor anticoagulation Decreased renal function Dyslipidemia Elevated serum creatinine History of left breast cancer HTN (hypertension) Low back pain Lumbar back pain with radiculopathy affecting left lower extremity Nasal sinus congestion On anticoagulant therapy On beta kemal at home Paroxysmal atrial fibrillation Pruritic intertrigo Retinal hemorrhage, bilateral Vaginal pruritus Surgical History History of cataract extraction History of lumpectomy of left breast Family History Father Enlarged heart Hyperlipidemia Mother Uterine cancer Maternal Aunt Breast cancer Brother Mental health disorder Sister Mental health disorder Sister No problems noted. Son No problems noted. Son No problems noted. Social History Household Members: Spouse Housing: House Are you a primary memory care program resident to a significant other at home: No Do you presently have visiting nurse or other home services: No Alcohol intake: never Patient Tobacco Use Status: Never used Tobacco e-Cigarette/Vaping Use: Never Used Second Hand Smoke Exposure: No service: No Current occupational status: retired Cognitive needs: No Hearing needs: No Vision needs: Yes Questionnaire Thrive Questionnaire Date Thrive assessed: 10/20/21 HERNAN-7 AMB Questionnaire HERNAN-7 Date HERNAN - 7 assessed: 10/20/21 Source: Developed by Drs. Antony Samuel, Isis Christensen, Mehul Casper and colleagues, with an educational roseline from [employer]. Review of Systems Const Denies chills, Denies fatigue, Denies fever(s) and Denies weakness Eyes Reports as per HPI ENT Denies dizziness Card Denies chest pain, Denies leg edema, Denies lightheadedness, Denies palpitations and Denies dyspnea Resp Denies cough and Denies dyspnea GI Denies hematochezia and Denies change in stool character Reports no additional complaints Musc Reports as per HPI, Denies abnormal gait, Denies muscle weakness and Denies tingling Neuro Denies abnormal gait, Denies dizziness, Denies tingling and Denies weakness Endo Denies fatigue and Denies palpitations Abundio/Lymph Denies easy bleeding and Denies easy bruising Aller/Immun Denies seasonal rhinorrhea Physical exam (Primary Care) Vital Signs: Last Vital Signs Pulse 80 05/26/23 15:46 BP 162/90 H 05/26/23 15:46 Pulse Ox 97 08/24/23 15:46 Tobacco/Smoking Status: Tobacco use Status Tobacco use date assessed 05/26/23 05/26/23 15:52 Patient Tobacco Use Status Never used Tobacco 05/26/23 15:52 e-Cigarette/Vaping Use Never Used 05/26/23 15:52 Thrive Assessment: Date of Thrive Assessment Date Thrive assessed 10/20/21 05/26/23 15:52 Const Other: Alert oriented x3, no acute distress noted Nutritional Appearance: obese Orientation/consciousness: patient oriented x3 [facility] General nose exam: Normal external nose present and No nasal discharge present Face and sinus: Yes face symmetric Mouth: Normal oral and palatal mucosa present and moist mucous membranes Eyes General: appearance normal, both eyes and all related structures Conjunctivae: conjunctivae normal Sclerae: sclerae normal Pupils: Equal, round and reactive pupils present EOM: EOMs intact bilaterally Neck Neck: Yes full ROM, Yes no lymphadenopathy and Yes supple Thyroid: Thyroid normal Resp Auscultation: clear to auscultation bilaterally Cardio Other: S1-S2 present regular rate and rhythm GI Palpation (GI): Soft to palpation, nontender, no guarding and no masses Auscultation: normal bowel sounds Skin General skin exam: no rashes or lesions noted Neuro General: patient oriented x3, gait normal, moves all extremities, Normal light touch and pain sensation, no focal motor deficits and CN's II-XI intact bilaterally Cranial nerves: Yes Equal, round and reactive pupils present Extrem General: Yes full ROM, Yes no joint enlargement, Yes no pedal edema, Yes no calf tenderness and Yes normal gait Results Reviewed Results Reviewed: Name: Shellie Salgado Age/Sex: 73/[facility] 1950 [id number] [id number] Attend Dr: Bijal Umana MD Re05/17/23 Status: DEP [facility] Disch: SPEC : [id number] JANA: 05/17/23 STATUS: COMP REQ : [id number] RECD: 05/17/[address]: Bijal Umana MD COMP: 05/17/23 ENTERED: 05/17/[address]: ORDERED: Met Prof Fast, AST, ALT, Lipid Panel, Vitamin D 25-OH Test Result Flag Reference Site Sodium 138 135-145 mmol/L Potassium 4.3 3.3-5.1 mmol/L CL 104 96-108 mmol/L CO2 26 22-29 mmol/L Gap 12 12-20 BUN 18 H 9-16 mg/dL Creat 1.15 0.5-1.4 mg/dL EGFR 46 NOTE: For -[place] individuals, multiply the result by 1.210. Chronic Kidney Disease: Estimated GFR < 60 mL/min/1.73m2 Severe Kidney Disease: Estimated GFR < 15 mL/min/1.73m2 FBS 98 60-99 mg/dL CA 9.8 8.4-10.2 mg/dL AST (GOT) 55 H 5-31 U/L ALT (GPT) 51 H 0-31 U/L Triglyceride 172 mg/dL Desirable Triglyceride: less than 150 mg/dL Borderline High Triglyceride 150-199 mg/dL High Triglyceride: 200-499 mg/dL Very High Triglyceride: greater than or equal to 5OO mg/dL Chol 177 mg/dL Desirable Cholesterol: less than 200 mg/dL Borderline High Cholesterol: 200-239 mg/dL High Cholesterol: greater than 239 mg/dL LDL Calculated 87 mg/dl Desirable LDL: less than 100 mg/dL Near Optimal/Above Optimal LDL: 110-129 mg/dL Borderline High LDL: 130-159 mg/dL High LDL: 160-189 mg/dL Very High LDL: greater than or equal to 190 mg/dL HDL 56 mg/dL Desirable HDL: greater than 40 mg/dL Note: This HDL assay may give artificially low results in patients with liver disease. Vit D 25-OH Tot 77.2 >30 ng/mL Health Based Reference Values* < 20 ng/mL Deficient 20-30 ng/mL Insufficient > 30 ng/mL Sufficient Assessment and Plan Assessment & Plan (1) HTN (hypertension): Code(s): I10 - Essential (primary) hypertension Plan: Blood pressure not at goal of less than 130/90. Continue with metoprolol 50 mg twice a day and added amlodipine 5 mg 1 a day in the morning. Referred to nephrology for further evaluation and management. Cut back on salt intake, and lower stress level (2) Decreased renal function: Code(s): N28.9 - Disorder of kidney and ureter, unspecified Plan: Nephrology consult ordered. Patient advised to avoid and taking Motrin, Advil, Aleve, naproxen (3) Elevated serum creatinine: Code(s): R79.89 - Other specified abnormal findings of blood chemistry Plan: Nephrology consult ordered. Patient advised to avoid and taking Motrin, Advil, Aleve, naproxen (4) Retinal hemorrhage, bilateral: Code(s): H35.63 - Retinal hemorrhage, bilateral Plan: Stressed importance of regulating in controlling blood pressure, blood sugar, and cholesterol levels. (5) Anxiety disorder: Code(s): F41.9 - Anxiety disorder, unspecified (6) Paroxysmal atrial fibrillation: Comment: FRANCHESKA guided cardioversion in December of 2015. Normal structure of the heart Foll'd by Dr. Anna Code(s): I48.0 - Paroxysmal atrial fibrillation Plan: Currently on Xarelto (7) Current use of ferry terminal supervisor anticoagulation: Code(s): Z79.01 - MCFP (current) use of anticoagulants (8) Dyslipidemia: Code(s): E78.5 - Hyperlipidemia, unspecified Plan: Reviewed recent fasting lipid profile with patient with levels within normal limits . Continue with rosuvastatin 10 mg daily , in addition to adherence to low-cholesterol diet and regular exercise, at least 30 minutes 3 to 4 times a week. Advised patient to make healthy food choices, eat more fruits, vegetables, whole grains, wild caught fish and low-fat dairy. Limit amount of meat and fried or fatty food products, as well as processed foods and fast foods. Orders: Referrals Nephrology Referral I10 - Essential (primary) hypertension, N28.9 - Disorder of kidney and ureter, unspecified, R79.89 - Other specified abnormal findings of blood chemistry Medications: New amlodipine 5 mg PO DAILY 30 tabs 0RF Changed From famotidine (Pepcid) 20 mg PO DAILY 90 tabs 3RF K21.9 - Gastro-esophageal reflux disease without esophagitis To famotidine (Pepcid) 20 mg PO DAILY PRN K21.9 - Gastro-esophageal reflux disease without esophagitis Refilled lorazepam 0.5 mg PO DAILY PRN 30 tabs 0RF anxiety Coding Level of Care Code Est Pt Level 4 (54931) Diagnoses HTN (hypertension) I10 Decreased renal function N28.9 Elevated serum creatinine R79.89 Retinal hemorrhage, bilateral H35.63 Anxiety disorder F41.9 Paroxysmal atrial fibrillation I48.0 Current use of ferry terminal supervisor anticoagulation Z79.01 Dyslipidemia E78.5
== END 2023-05-26 17:00 | disposition home or self-care (01) ==
PROVIDERS: PCP Internal Medicine; Visit Provider Internal Medicine
DX: I10 Essential (primary) hypertension (principal); H35.63 Retinal hemorrhage, bilateral; F41.9 Anxiety disorder, unspecified; Z79.01 Long term (current) use of anticoagulants; I48.0 Paroxysmal atrial fibrillation; N28.9 Disorder of kidney and ureter, unspecified; R79.89 Other specified abnormal findings of blood chemistry; E78.5 Hyperlipidemia, unspecified
CPT/HCPCS: 99214

== ENCOUNTER → 2023-05-31 13:46 | Outpatient (REF) | payer MEDICARE, OTHER, SELFPAY ==
--- NOTE | 2023-05-31 13:48 | HM_ITS ---
Cardiac event monitor Indication: Paroxysmal atrial fibrillation Technique: Patient was hooked up to cardiac event monitor on 05/31/2023 for total period of 30 days. Compliance rate was about 96%. Findings: Baseline was normal sinus rhythm 44% of time and frequent sinus bradycardia 56% of time with heart rate below 60 beats per minute with lowest heart rate of 49 beats per minute. No significant pauses noted. One 5 beat episode of paroxysmal atrial tachycardia noted. No other significant arrhythmias noted. Patient reported 1 event without associated symptoms correlating sinus rhythm. Conclusion: 1. Baseline was normal sinus rhythm with frequent sinus bradycardia 2. No significant arrhythmias noted 3. Patient reported event correlated with sinus rhythm MTDD
== END ==
LOC: HO.CARD 13:46
PROVIDERS: PCP Internal Medicine; Visit Provider Internal Medicine Cardiovascular Disease
DX: I48.0 Paroxysmal atrial fibrillation (principal); R06.02 Shortness of breath
CPT/HCPCS: 93270

== ENCOUNTER → 2023-05-31 13:48 | Outpatient (BNV) | payer MEDICARE, OTHER, SELFPAY | PROVIDERS: PCP Internal Medicine; Visit Provider Internal Medicine Cardiovascular Disease | DX: R00.1 Bradycardia, unspecified (principal) | CPT/HCPCS: 93272 ==

== ENCOUNTER 2023-07-01 13:46 | Outpatient (AMB) | payer MEDICARE, OTHER, SELFPAY ==
--- NOTE | 2023-07-01 13:53 | MHC.OFFVIS ---
Intake Vital Signs 07/01/23 13:54 Height 5 ft 2 in Weight 186 lb BMI 34.0 BP 149/65 H Blood Pressure Location Lt brachial Position Sitting Pulse 70 Intake Visit Reasons: 6 month fu Intake Note: Patient follow up for GERD. Patient denies any GI issues. 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 Patient knows that chocolate is 1 of causes that she will get acid reflux with occasional dyspepsia without dysphagia or odynophagia. Patient states that Pepcid helps. She only takes it on as needed basis. Discussed with patient avoiding dietary triggers and late night snacking. Staying upright for minimum 3 hours after meals discussed with patient. IBS (irritable bowel syndrome) Occasional abdominal pain and cramping after meals. Discussed with patient low FODMAP diet. List of food recommended as well as list of food to avoid given to patient. Patient will use MiraLax to help her empty her bowels completely and see if the symptoms of abdominal bloating will get better. I will see her in 6 months, sooner on as needed basis. Patient is agreeable to this plan and verbalizes understanding of instructions. She was given the opportunity to ask questions and all questions answered. ? TODAY'S VISIT Patient is here today for follow-up. Patient reports that she has been feeling fine, occasionally uses Pepcid on as needed basis. Patient states that she is trying to avoid dietary triggers. Patient reports that she has been stressed in the past few weeks as she was diagnosed with stage III CKD. Patient states that she saw cytopathologist who told her that she has kidney disease most likely related to her blood pressure. Patient states that she wants to try to lose weight so she can feel better. Patient denies having any GI concerning symptoms except for occasional acid reflux. States that Pepcid helps. Patient denies any nausea or vomiting. Denies any abdominal pain. Occasional postprandial abdominal bloating. Patient states that she is moving her bowels without any issues. Patient would like to see if she can have gang supervisor consult to discuss diet to help her kidney disease. [facility] Medical History (Updated 05/26/23 @ 16:23 by Bijal Umana MD) Current use of skilled nursing anticoagulation Retinal hemorrhage, bilateral Decreased renal function Elevated serum creatinine Lumbar back pain with radiculopathy affecting left lower extremity History of left breast cancer Vaginal pruritus On anticoagulant therapy On beta kemal at home Nasal sinus congestion Dyslipidemia Anxiety disorder Pruritic intertrigo Low back pain Paroxysmal atrial fibrillation HTN (hypertension) Surgical History History of cataract extraction History of lumpectomy of left breast Family History Father Enlarged heart Hyperlipidemia Mother Uterine cancer Maternal Aunt Breast cancer Brother Mental health disorder Sister Mental health disorder Sister No problems noted. Son No problems noted. Son No problems noted. Social History Household Members: Spouse Housing: House Are you a primary inpatient care manager rn to a significant other at home: No Do you presently have visiting nurse or other home services: No Alcohol intake: never Patient Tobacco Use Status: Never used Tobacco e-Cigarette/Vaping Use: Never Used Second Hand Smoke Exposure: No service: No Current occupational status: retired Cognitive needs: No Hearing needs: No Vision needs: Yes Review of Systems Const Denies weight gain and Denies weight loss ENT Reports no additional complaints, Denies dysphagia and Denies odynophagia Card Reports no additional complaints Resp Reports no additional complaints GI Denies abdominal pain, Denies belching, Denies melena, Denies bloating, Denies change in bowel habits, Denies dysphagia, Denies excessive flatus, Denies dyspepsia, Denies heartburn, Denies diarrhea, Denies loose stools, Denies nausea, Denies odynophagia and Denies vomiting Reports no additional complaints Musc Reports no additional complaints Neuro Reports no additional complaints Psych Reports no additional complaints Endo Reports no additional complaints Physical Exam Vital Signs: Last Vital Signs Pulse 70 07/01/23 13:54 BP 149/65 H 07/01/23 13:54 BMI result Body Mass Index 34.0 Const General: healthy appearing, no acute distress and well developed Nutritional Appearance: obese Orientation/consciousness: patient oriented x3 HEENT Head: Yes normal to inspection, Yes normocephalic and Yes atraumatic Face and sinus: Yes normal facial exam Mouth: Normal oral and palatal mucosa present Throat: Yes posterior oropharynx normal, Yes tonsils normal and Yes uvula midline Eyes General: appearance normal, both eyes and all related structures Neck Neck: Yes normal visual inspection, Yes full ROM and Yes trachea midline Thyroid: Thyroid normal Resp Effort & Inspection: normal respiratory effort, able to speak in complete sentences, no tracheal deviation and symmetric chest movement Auscultation: clear to auscultation bilaterally Cardio Rate: regular rate Heart sounds: S1 normal heart sound present and S2 normal heart sound present GI Inspection: Yes normal to inspection, No distended and Yes obesity Palpation (GI): Soft to palpation, not firm, nontender and No hepatosplenomegaly present Auscultation: normal bowel sounds General: Yes no CVA tenderness Back/Spine/Pelvis Back: no CVA tenderness Skin General skin exam: elasticity normal, turgor normal and dry skin Neuro General: patient oriented x3 Psych Appearance: grossly normal Mental Status: mental status grossly normal Speech and movement: Normal speech and movement present Assessment & Plan Assessment & Plan (1) GERD (gastroesophageal reflux disease): Code(s): K21.9 - Gastro-esophageal reflux disease without esophagitis Qualifiers: Esophagitis presence: esophagitis presence not specified Qualified Code(s): K21.9 - Gastro-esophageal reflux disease without esophagitis Plan: Continue Pepcid on as needed basis. Discussed with patient avoiding dietary triggers and late night snacking. Staying upright for minimum 3 hours after meals discussed with patient. Patient will try to lose weight and she was better meal plan. Patient will follow-up with her Nephrology office where they can assist her with seeing diet patient or nurse to go over appropriate diet. (2) IBS (irritable bowel syndrome): Code(s): K58.9 - Irritable bowel syndrome without diarrhea Qualifiers: Irritable bowel syndrome type: without diarrhea Qualified Code(s): K58.9 - Irritable bowel syndrome without diarrhea Plan: Occasional postprandial abdominal bloating. Discussed with patient the importance of going for colonoscopy. Patient states that she would like to have some little bit time to figure out how she can lose weight. She was diagnosed with stage III CKD and would like to have the procedure maybe next year. Patient reports that she is quite depressed about it. Discussed with her that if she goes for colonoscopy we can possibly go for upper endoscopy if she continues to have acid reflux and dyspepsia. I will see patient in 6 months, sooner on as needed basis. Patient is agreeable to this plan and verbalizes understanding of instructions. She was given the opportunity to ask questions and all questions answered. Thank you for allowing me to participate in her care Coding Level of Care Code Est Pt Level 3 (98937) Diagnoses Gastroesophageal reflux disease, unspecified whether esophagitis present K21.9 Esophagitis presence: esophagitis presence not specified Irritable bowel syndrome without diarrhea K58.9 Irritable bowel syndrome type: without diarrhea Time Spent (min) 30 Comment 20 minutes spent with patient and additional 10 minutes spent reviewing her records
[2023-07-01 13:54] VITALS: BP 149/65; PULSE 70; BMI 34.0
== END 2023-07-01 14:25 | disposition home or self-care (01) ==
PROVIDERS: PCP Internal Medicine; Visit Provider Nurse Practitioner Family
DX: K21.9 Gastro-esophageal reflux disease without esophagitis (principal); K58.9 Irritable bowel syndrome, unspecified
CPT/HCPCS: 99213

== ENCOUNTER → 2023-07-01 13:46 | Outpatient (BNVA) | payer MEDICARE, OTHER, SELFPAY | PROVIDERS: PCP Internal Medicine; Visit Provider Nurse Practitioner Family | DX: K21.9 Gastro-esophageal reflux disease without esophagitis (principal); K58.9 Irritable bowel syndrome, unspecified | CPT/HCPCS: 99212 ==

== ENCOUNTER 2023-08-18 13:24 | Outpatient (AMB) | payer MEDICARE, OTHER, SELFPAY ==
--- NOTE | 2023-08-18 13:25 | A.OFFVIS_ITS ---
Intake Vital Signs 08/18/23 13:26 Height 5 ft 2 in BP 120/82 Blood Pressure Location Lt brachial Position Sitting Pulse 69 Intake Visit Reasons: 1 year follow up Intake Note: 1 year follow-up with ekg c/o sob she is waiting to see Electrical Engineering Designer Section Repairer Required: No Allergies bupropion [From Wellbutrin] Allergy (Unknown, Verified 07/01/23 13:52) burning sensation citalopram Allergy (Unknown, Verified 07/01/23 13:52) burning sensatin in skin Medication List - Last Reconciled 08/18/23 by Bob Anna MD amlodipine 5 mg PO DAILY cholecalciferol (vitamin D3) 25 mcg PO DAILY famotidine (Pepcid) 20 mg PO DAILY PRN fluticasone propionate 50 mcg/actuation (Flonase Allergy Relief) 1 spray intranasal BID PRN lorazepam 0.5 mg PO DAILY PRN metoprolol tartrate 50 mg PO BID rivaroxaban (Xarelto) 20 mg PO BEDTIME rosuvastatin 10 mg PO DAILY HPI HPI Comments History of Present Illness Details Shellie comes for follow-up. She had a event monitor which did not show any significant arrhythmias. Her symptoms correlated with sinus rhythm. Since then she has had occasional skipping of heartbeat then she has done her own EKGs which have shown normal sinus rhythm. Her she says she has been having increased symptoms of exertional shortness of breath associated with precordial chest tightness. She has meanwhile seen ultrasonic cleaner for chronic kidney disease which has remained stable but was told that she has elevated immunoglobulin levels and she might have cancer. She is very concerned about it. She was referred to kartik but her appointment is set inter October. She request a sooner appointment at a local review appraiser. She denies any prolonged palpitations or irregular heartbeat. No bleeding issues or neurologic events. FORMERLY [facility], [facility] Medical History Current use of watermaster anticoagulation Retinal hemorrhage, bilateral Decreased renal function Elevated serum creatinine Lumbar back pain with radiculopathy affecting left lower extremity History of left breast cancer Vaginal pruritus On anticoagulant therapy On beta kemal at home Nasal sinus congestion Dyslipidemia Anxiety disorder Pruritic intertrigo Low back pain Paroxysmal atrial fibrillation HTN (hypertension) Surgical History History of cataract extraction History of lumpectomy of left breast Family History Father Enlarged heart Hyperlipidemia Mother Uterine cancer Maternal Aunt Breast cancer Brother Mental health disorder Sister Mental health disorder Sister No problems noted. Son No problems noted. Son No problems noted. Social History Household Members: Spouse Housing: House Are you a primary care director rn to a significant other at home: No Do you presently have visiting nurse or other home services: No Alcohol intake: never Patient Tobacco Use Status: Never used Tobacco e-Cigarette/Vaping Use: Never Used Second Hand Smoke Exposure: No service: No Current occupational status: retired Cognitive needs: No Hearing needs: No Vision needs: Yes Review of Systems Const Denies chills, Denies fatigue, Denies fever(s), Denies frequent falls, Denies weakness, Denies weight gain and Denies weight loss ENT Denies dizziness Card Denies chest pain, Denies leg edema, Denies lightheadedness, Denies palpitations, Denies dyspnea, Denies dyspnea on exertion, Denies orthopnea and Denies other (loss of consciousness) Resp Denies cough, Denies dyspnea and Denies dyspnea on exertion GI Denies hematochezia and Denies change in stool character Musc Denies abnormal gait, Denies muscle weakness, Denies numbness, Denies radiating pain into limb and Denies tingling Neuro Denies abnormal gait, Denies dizziness, Denies frequent falls, Denies numbness, Denies tingling and Denies weakness Endo Denies fatigue and Denies palpitations Physical Exam Vital Signs: Last Vital Signs Pulse 69 08/18/23 13:26 BP 120/82 08/18/23 13:26 Const General: cooperative, healthy appearing, comfortable, no acute distress, alert and awake Nutritional Appearance: obese Orientation/consciousness: patient oriented x3 Limitations: no limitations Neck Neck: Yes full ROM, Yes trachea midline, Yes supple and Yes no JVD Chest Chest palpation & inspection: normal inspection of the chest Resp Effort & Inspection: normal respiratory effort Auscultation: clear to auscultation bilaterally Cardio Jugular venous distension: no JVD Palpation: normal PMI Rate: regular rate Rhythm: regular rhythm Heart sounds: S1 normal heart sound present, S2 normal heart sound present and Other heart sounds present ( S4 present) Peripheral pulses: Peripheral pulses 2+ throughout GI Inspection: Yes normal to inspection Auscultation: normal bowel sounds Skin General skin exam: no rashes or lesions noted Neuro General: patient oriented x3 and no focal motor deficits Extrem General: Yes no clubbing, cyanosis or edema Psych Appearance: grossly normal Office Procedures EKG Details: EKG shows normal sinus rhythm with Q-waves in lead 3 and small Q-wave in lead AVF most likely due to body habitus with poor R-wave progression most likely lead placement with no acute ST T wave changes [id number], Complete Assessment & Plan Assessment & Plan (1) Paroxysmal atrial fibrillation: Comment: FRANCHESKA guided cardioversion in December of 2015. Normal structure of the heart Foll'd by Dr. Anna Code(s): I48.0 - Paroxysmal atrial fibrillation Plan: Patient with highly symptomatic paroxysmal atrial fibrillation doing well overall with no recurrent episodes. Of symptoms of skipped heartbeats are most likely related to anxiety/stress and there is no associated arrhythmias detected. Continue metoprolol therapy. Continue full oral anticoagulation, currently on Xarelto 20 mg daily. Semi annual renal function test should be pursued. Avoidance of stimulants was discussed. Stress mitigation strategies were discussed continue modify risk factors including weight as well as hypertension. (2) HTN (hypertension): Code(s): I10 - Essential (primary) hypertension Plan: Hypertension which is currently well optimized advised to monitor blood pressure at home maintain a log. Goal blood pressure less than 130/84. Continue current therapy. Amlodipine as help manage her blood pressure. She does have chronic kidney disease with increase risk for cardiovascular events. This was discussed with her. Low-salt diet was discussed advised to increase activity level as tolerated. (3) Exertional chest pain: Code(s): R07.9 - Chest pain, unspecified Plan: Patient is concerned about her increasing symptoms exertional shortness of breath associated chest tightness. Suggest a myocardial perfusion imaging to further assess for myocardial ischemia. If this is within normal limits I have encouraged to increase activity level gradually. Follow up in the clinic in 1 year's time, sooner p.r.n.. Thank you for allowing me to partake in her care Orders: Orders CA stress test Today R07.9 - Chest pain, unspecified NM cardiolite stress test 2 Weeks R07.9 - Chest pain, unspecified Referrals Nephrology Referral N18.9 - Chronic kidney disease, unspecified Hematology & Oncology Referral R76.8 - Other specified abnormal immunological findings in serum Coding Level of Care Code Est Pt Level 4 (03864) Diagnoses Paroxysmal atrial fibrillation I48.0 HTN (hypertension) I10 Exertional chest pain R07.9 CPT Codes EKG - CPT: 60129-[id number], Complete ([id number])
[2023-08-18 13:26] VITALS: BP 120/82; PULSE 69
== END 2023-08-18 13:59 | disposition home or self-care (01) ==
PROVIDERS: Visit Provider Internal Medicine Cardiovascular Disease
DX: I48.0 Paroxysmal atrial fibrillation (principal); I10 Essential (primary) hypertension; R07.9 Chest pain, unspecified
CPT/HCPCS: 93010; 99214

== ENCOUNTER → 2023-08-18 13:24 | Outpatient (BNVA) | payer MEDICARE, OTHER, SELFPAY | PROVIDERS: Visit Provider Internal Medicine Cardiovascular Disease | DX: I48.0 Paroxysmal atrial fibrillation (principal); I10 Essential (primary) hypertension; R07.9 Chest pain, unspecified | CPT/HCPCS: 93005; 99212 ==

== ENCOUNTER 2023-08-31 14:17 | Outpatient (AMB) | payer MEDICARE, OTHER, SELFPAY ==
--- NOTE | 2023-08-31 14:22 | HO.NEPHOV_ITS ---
HPI HPI Comments History of Present Illness Details I had the privilege of seeing Shellie in consultation for her mild CKD on a backdrop of long standing hypertension. She had not been monitoring her BP closely at home until recently but has been compliant with metoprolol. She has history of paroxysmal atrial fibrillation on xarelto . She was recently diagnosed with retinal hemorrhages. She is not a diabetic. She denies Carotid stenosis, CAD, CHF, PAD, MITUL, CVA, recurrent UTI's, renal stones, hearing deficits, M/S hematuria, joint swellings, photosensitivity, skin rashes, epistaxis, hemoptysis, hemetemesis or melena. She denies new bone or back pain. She doesn't take excess NSAID's. She was recently found to have high IgM levels with [place] monoclonal bands. She has no symptoms of hyperviscosity. She is anxious and concerned about high IgM levels and was wondering whether its associated with hematological malignancy. She has remote H/O breast cancer. She has an appointment to see medical scheduler soon. She is not known to have prote inuria. Her BP was not well controlled on metoprolol and amlodipine was added with better control. She denies being on ACEI/ARB. Her last serum creatinine was close to 1.2 PFSH Medical History Current use of intermediate anticoagulation Retinal hemorrhage, bilateral Decreased renal function Elevated serum creatinine Lumbar back pain with radiculopathy affecting left lower extremity History of left breast cancer Vaginal pruritus On anticoagulant therapy On beta kemal at home Nasal sinus congestion Dyslipidemia Anxiety disorder Pruritic intertrigo Low back pain Paroxysmal atrial fibrillation HTN (hypertension) Surgical History History of cataract extraction History of lumpectomy of left breast Family History Father Enlarged heart Hyperlipidemia Mother Uterine cancer Maternal Aunt Breast cancer Brother Mental health disorder Sister Mental health disorder Sister No problems noted. Son No problems noted. Son No problems noted. Social History Household Members: Spouse Housing: House Are you a primary attending ambulatory care to a significant other at home: No Do you presently have visiting nurse or other home services: No Alcohol intake: never Patient Tobacco Use Status: Never used Tobacco e-Cigarette/Vaping Use: Never Used Second Hand Smoke Exposure: No service: No Current occupational status: retired Cognitive needs: No Hearing needs: No Vision needs: Yes Vital Signs 08/31/23 14:23 Height 5 ft 2 in Weight 184 lb 6 oz BMI 33.7 BP 132/80 Blood Pressure Location Rt brachial Position Sitting Pulse 64 Pulse Source Pulse Oximeter Physical Exam Vital Signs: Last Vital Signs Pulse 64 08/31/23 14:23 BP 132/80 08/31/23 14:23 BMI result Body Mass Index 33.7 Const General: comfortable and no acute distress Orientation/consciousness: patient oriented x3 HEENT Head: Yes normocephalic Mouth: Normal oral and palatal mucosa present Eyes EOM: EOMs intact bilaterally Neck Neck: Yes supple Resp Auscultation: clear to auscultation bilaterally Cardio Jugular venous distension: no JVD Rate: regular rate GI Palpation (GI): Soft to palpation Auscultation: normal bowel sounds General: Yes no CVA tenderness Back/Spine/Pelvis Back: no CVA tenderness Skin General skin exam: no rashes or lesions noted Neuro General: patient oriented x3 and moves all extremities Extrem General: Yes no pedal edema Assessment & Plan Assessment & Plan (1) Abnormal blood creatinine level: Code(s): R79.89 - Other specified abnormal findings of blood chemistry (2) HTN (hypertension): Code(s): I10 - Essential (primary) hypertension Qualifiers: Hypertension type: primary hypertension Qualified Code(s): I10 - Essential (primary) hypertension Plan Shellie likely has CKD 2/3 likely due to long standing hypertension and or vascular disease. Her serum creatinine is fairly stable. She has no blood or protein in the urine. I have ordered Doppler of renal arteries and 24 hour urine for GFR. 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 She has no hyperviscosity symptoms. She will need bone marrow biopsy. She has no features to suggest her CKD is due to amyloidosis even though she has AFib and CKD. She has no anemia, hypercalcemia, pancytopenia or rising serum creatinine. She will be a candidate for ACEI/ARB which I plan to initiate soon , with time, after reviewing her follow up lab data. She may need Jardiance or Farxiga based on evolving data. Doing a renal biopsy can be challenging being on Xarelto but definitely possible. I shall consider doing it if deemed necessary.Her BP needs to be maintained at goal consistently. All her and her husbands questions were answered. Time spent discussing all the above, retrieving data, patient encounter and documentation 63 minutes. Follow up given Orders: Orders Creatinine Today R79.89 - Other specified abnormal findings of blood chemistry Calcium Today R79.89 - Other specified abnormal findings of blood chemistry Other Ref Test - Misc Today R79.89 - Other specified abnormal findings of blood chemistry US renal doppler Today R79.89 - Other specified abnormal findings of blood chemistry Electrolytes Today R79.89 - Other specified abnormal findings of blood chemistry Blood Urea Nitrogen Today R79.89 - Other specified abnormal findings of blood chemistry Protein Creatinine Ratio, Ur Today R79.89 - Other specified abnormal findings of blood chemistry Coding Level of Care Code New Pt Level 5 (45792) Diagnoses Abnormal blood creatinine level R79.89 Primary hypertension I10 Hypertension type: primary hypertension
[2023-08-31 14:23] VITALS: BP 132/80; PULSE 64; BMI 33.7
== END 2023-08-31 15:53 | disposition home or self-care (01) ==
PROVIDERS: PCP Internal Medicine; Visit Provider Internal Medicine Nephrology
DX: R79.89 Other specified abnormal findings of blood chemistry (principal); I10 Essential (primary) hypertension
CPT/HCPCS: 99205

== ENCOUNTER → 2023-08-31 14:17 | Outpatient (BNVA) | payer MEDICARE, OTHER, SELFPAY | PROVIDERS: PCP Internal Medicine; Visit Provider Internal Medicine Nephrology | DX: R79.89 Other specified abnormal findings of blood chemistry (principal); I10 Essential (primary) hypertension | CPT/HCPCS: 99202 ==

== ENCOUNTER 2023-09-14 13:35 | Outpatient (AMB) | payer MEDICARE, OTHER, SELFPAY ==
[2023-09-14 14:21] VITALS: BP 130/80; PULSE 76; TEMP 36.8; O2SAT 97
--- NOTE | 2023-09-14 14:21 | MHC.OFFWIV ---
Intake Vital Signs 09/14/23 14:21 Height 5 ft 2 in BMI Reason not done Patient refused/unable BP 130/80 Blood Pressure Location Rt brachial Position Sitting Pulse 76 Pulse Source Pulse Oximeter Temp 98.2 F Temp Source Oral Pulse Oximetry (%) 97 Intake Visit Reasons: EP tested + COVID chest congestion [id number] Intake Note: pt is here for c.o chest congestion with postive at home covid test Patient Tobacco Use Status: Never used Tobacco Allergies bupropion [From Wellbutrin] Allergy (Unknown, Verified 09/14/23 14:21) burning sensation citalopram Allergy (Unknown, Verified 09/14/23 14:21) burning sensatin in skin Do you need a note to return to daycare/school/sports/work: No HPI HPI Comments History of Present Illness Details Pt is a 73yo F who presents to office with cough She said started last week and initial covid test negative Retested Tuesday and + covid She said cough is intermittent phlegm No SOB or CP + lower back ache due to cough Minimal congestion ST resolved No ear pain Taking OTC medicine without relief No fever or chills PFSH Medical History Current use of nursing home anticoagulation Retinal hemorrhage, bilateral Decreased renal function Elevated serum creatinine Lumbar back pain with radiculopathy affecting left lower extremity History of left breast cancer Vaginal pruritus On anticoagulant therapy On beta kemal at home Nasal sinus congestion Dyslipidemia Anxiety disorder Pruritic intertrigo Low back pain Paroxysmal atrial fibrillation HTN (hypertension) Surgical History History of cataract extraction History of lumpectomy of left breast Family History Father Enlarged heart Hyperlipidemia Mother Uterine cancer Maternal Aunt Breast cancer Brother Mental health disorder Sister Mental health disorder Sister No problems noted. Son No problems noted. Son No problems noted. Social History Household Members: Spouse Housing: House Are you a primary career development counselor to a significant other at home: No Do you presently have visiting nurse or other home services: No Alcohol intake: never Patient Tobacco Use Status: Never used Tobacco e-Cigarette/Vaping Use: Never Used Second Hand Smoke Exposure: No service: No Current occupational status: retired Cognitive needs: No Hearing needs: No Vision needs: Yes Review of Systems Const Denies chills, Denies fever(s) and Reports lethargy Eyes Denies blurry vision ENT Denies otalgia, Reports nasal congestion, Denies sinus pain, Denies sore throat and Denies throat swelling Card Denies chest pain, Denies chest pain at rest and Denies chest pain with activity Resp Reports cough and Denies hemoptysis Musc Reports back pain (lower back ache only with cough) Aller/Immun Denies throat swelling Physical Exam Vital Signs: Last Vital Signs Temp 98.2 F 09/14/23 14:21 Pulse 76 09/14/23 14:21 BP 130/80 09/14/23 14:21 Pulse Ox 97 09/14/23 14:21 General: Non-toxic, NAD. Speaking full sentences. Skin: Warm dry throughout Eye: EOMI HENT: Airway patent. Uvula midline. No pharyngeal erythema or edema. No FIXED ASSETS ACCOUNTANT. Bilateral canals clear. TM non-erythematous, non-bulging. No TM perforation or hemotympanum noted. Respiratory: Decreased L base but otherwise, CTA bilaterally. No wheezes, rales or rhonchi Cardiac: RRR. No murmur MSK: Full ROM extremities. Neurology: A/O. No aphasia or facial droop. Gait without abnormality Psych: Good mood and affect Assessment & Plan Assessment & Plan (1) COVID: Code(s): U07.1 - COVID-19 Plan: I viewed xray as negative Tessalon for cough Vitals sable She is aware CP or SOB go to ED or any worsening Discussed 5 days isolation and 5 days then mask wearing All questions answered and pt gave verbal understanding at time of d/c Orders: Orders XR chest 2V Today U07.1 - COVID-19 Medications: New benzonatate 100 mg PO BID-TID PRN 14 caps 0RF cough U07.1 - COVID-19 Coding Level of Care Code Est Pt Level 3 (36473) Diagnoses COVID U07.1
== END 2023-09-14 16:31 | disposition home or self-care (01) ==
PROVIDERS: PCP Internal Medicine; Visit Provider Physician Assistant
DX: U07.1 COVID-19 (principal)
CPT/HCPCS: 99213

== ENCOUNTER 2023-09-14 14:46 | Outpatient (REF) | payer MEDICARE, OTHER, SELFPAY ==
--- NOTE | ~2023-09-14 | XR_ITS ---
EXAMINATION: XR CHEST CLINICAL INFORMATION: Covid 19 COMPARISON: Chest radiograph from 08/04/2022 TECHNIQUE: 2 views of the chest were obtained. FINDINGS: Slight interstitial prominence. Bilateral low lung volumes. Elevation the right hemidiaphragm. No pneumothorax. Trachea is midline. Cardiac mediastinal silhouette is not enlarged. Aorta demonstrates atherosclerotic calcifications. No large degenerative changes of the thoracolumbar spine. Soft tissues are unremarkable. XR/XR chest 2V IMPRESSION: 1. Slight interstitial prominence. 2. Bilateral low lung volumes. 3. Elevation the right hemidiaphragm.
== END 2023-09-14 14:47 | disposition home or self-care (01) ==
LOC: HO.HMGCX 14:46
PROVIDERS: PCP Internal Medicine; Visit Provider Physician Assistant
DX: U07.1 COVID-19 (principal)
CPT/HCPCS: 71046

== ENCOUNTER 2023-09-30 13:39 | Outpatient (REF) | payer MEDICARE, OTHER, SELFPAY ==
--- NOTE | ~2023-09-30 | MM_ITS ---
EXAMINATION: MM SCREENING DIGITAL BREAST TOMOSYNTHESIS, BILATERAL CLINICAL INFORMATION: Screening. Asymptomatic. The patient has a history of treated left breast cancer. COMPARISON: Mammography: This study is compared with prior exams dating back to 2018. TECHNIQUE: Digital breast tomosynthesis is performed in both the craniocaudal and mediolateral oblique views along with computer-aided detection (CAD). Synthesized 2D images are generated from the tomosynthesis. FINDINGS: There are scattered areas of fibroglandular density (ACR BI-RADS breast composition Category b). There are no significant masses, abnormal calcifications, or other abnormalities. There are postsurgical changes in the left breast. There are benign calcifications in the left breast. MM/MM tomosynthesis screening BI IMPRESSION: No mammographic evidence of malignancy. ASSESSMENT: BI-RADS BI-RADS 2 - Benign Findings RECOMMENDATION: Routine annual mammography screening. 1 year F/U This examination should not preclude the clinical evaluation of a suspicious palpable abnormality. This patient's information was entered into a reminder system with a target due date for their next mammogram.
== END 2023-09-30 13:40 | disposition home or self-care (01) ==
LOC: HO.MAMMO 13:39
PROVIDERS: PCP Internal Medicine; Visit Provider Internal Medicine
DX: Z12.31 Encounter for screening mammogram for malignant neoplasm of breast (principal)
CPT/HCPCS: 77063; 77067

== ENCOUNTER → 2023-09-30 14:00 | Outpatient (BNV) | payer MEDICARE, OTHER, SELFPAY | PROVIDERS: PCP Internal Medicine; Visit Provider Radiology Diagnostic Radiology | DX: Z12.31 Encounter for screening mammogram for malignant neoplasm of breast (principal) | CPT/HCPCS: 77063; 77067 ==

== ENCOUNTER 2023-10-06 09:50 | Outpatient (REF) | payer MEDICARE, OTHER, SELFPAY | END 2023-10-06 09:51 | disposition home or self-care (01) | LOC: HO.HMGCX 09:50 | PROVIDERS: PCP Internal Medicine; Visit Provider Internal Medicine Nephrology | DX: I12.9 Hypertensive chronic kidney disease with stage 1 through stage 4 chronic kidney disease, or unspecified chronic kidney disease (principal); N18.9 Chronic kidney disease, unspecified; R79.89 Other specified abnormal findings of blood chemistry | CPT/HCPCS: 76775; 93975 ==

== ENCOUNTER → 2023-11-07 09:18 | Outpatient (REF) | payer MEDICARE, OTHER, SELFPAY ==
--- NOTE | ~2023-11-07 | NM_ITS ---
EXERCISE MYOCARDIAL PERFUSION STUDY INDICATION: Shortness of breath, assess for coronary disease and ischemia TECHNIQUE: The patient was brought in for an exercise perfusion study on 11/07/2023. Patient performed exercise as per Maury protocol and was injected 30 mCi of sestamibi once target heart rate was achieved. Images were obtained using the SPECT gamma camera interlaced with the gating device. Images were obtained in supine position. Resting perfusion study was performed on 11/08/2023. Patient was administered 30 mCi of sestamibi intravenously at rest. Images were then obtained in supine position. Images were processed with the software and compared side to side in short axis, horizontal long axis and vertical long axis views. Total DLP 168mGy-cm. FINDINGS: Raw images were reviewed. Arms by the patient's side. The stress perfusion study showed mildly diminished tracer uptake in the distal part of lateral wall. There is improvement with CT attenuation correction suggestive of soft tissue attenuation artifact. The gated study shows normal LV systolic function with calculated LVEF of > 70%. LV cavity is normal in size. The gated study shows normal wall thickening and contraction of segments. Resting study shows no significant perfusion abnormality. Gating at rest reveals normal wall motion with ejection fraction at 71%. The findings are consistent with mild reversible distal lateral defect probably from soft tissue attenuation artifact. NM/NM cardiolite stress test IMPRESSION: 1. Myocardial perfusion imaging study shows no clear evidence of any ischemia or infarction. 2. Gated LVEF is > 70% during stress and rest. 3. Transient ischemic dilatation not present. EKG component of the test reported separately.
--- NOTE | 2023-11-07 09:21 | CA_ITS ---
Acquisition Time: 2023-11-07 09:58:45 Total Exercise Time: 00:07:51 Test Indications: Shortness of breath Medications: See H Protocol: MERA Max HR: 127 BPM 86% of Pred: 146 BPM Max BP: 164/054 mmHG Max Work Load: 9.4 METS Exercise stress test exercise 7 min 51 sec of Mera protoocl achieving 86% MPHR, with mild to moderate SOB, no chest discomfort,without arrhythmais, with normotensive response to exercise, with downslop V4-V6. Nuclear images pending. Test reviewed with Dr. Woody. Referred By: Bob Anna Overread By: Roxane Edouard
== END ==
LOC: HO.CARD 09:18
PROVIDERS: PCP Internal Medicine; Visit Provider Internal Medicine Cardiovascular Disease
DX: R07.9 Chest pain, unspecified (principal)
CPT/HCPCS: 78452; 93017; A9500

== ENCOUNTER → 2023-11-07 09:21 | Outpatient (BNV) | payer MEDICARE, OTHER, SELFPAY | PROVIDERS: PCP Internal Medicine; Visit Provider Nurse Practitioner | DX: R06.02 Shortness of breath (principal); R07.9 Chest pain, unspecified | CPT/HCPCS: 78452; 93016; 93018 ==

== ENCOUNTER 2023-11-25 08:57 | Outpatient (REF) | payer MEDICARE, OTHER, SELFPAY ==
[2023-11-25 10:53] LABS: Creatinine Urine 139.98 mg/dL; Total Protein Urine Random < 7 mg/dL (<12)
[2023-11-25 10:59] LABS: Anion Gap 13 (12-20); Blood Urea Nitrogen 18 mg/dL (9-16); Calcium 9.4 mg/dL (8.4-10.2); Carbon Dioxide 25 mmol/L (22-29); Chloride 106 mmol/L (96-108); Estimated Glomerular Filt Rate 60; Potassium 3.9 mmol/L (3.3-5.1); Sodium 140 mmol/L (135-145)
[2023-11-25 13:13] LABS: Total Volume 24 Hour Urine 1300 mL
[2023-11-25 14:09] LABS: Creatinine, 24Hr Urine 1.1 G/Day (1.0-2.0); Creatinine, mg/dL 81.32
[2023-11-25 14:10] LABS: Creatinine (CrCl) 0.92 mg/dL (0.5-1.4); Creatinine Clearance 79.7 mL/min (85-125)
== END 2023-11-25 08:58 | disposition home or self-care (01) ==
LOC: HO.HMGCLDS 08:57
PROVIDERS: PCP Internal Medicine; Visit Provider Internal Medicine Nephrology
DX: R79.89 Other specified abnormal findings of blood chemistry (principal)
CPT/HCPCS: 36415; 80051; 82310; 82565; 82570; 82575; 84156; 84520

== ENCOUNTER 2023-12-07 13:52 | Outpatient (AMB) | payer MEDICARE, OTHER, SELFPAY ==
--- NOTE | 2023-12-07 14:03 | HO.NEPHOV ---
HPI HPI Comments History of Present Illness Details I had the privilege of seeing Shellie in follow up for her mild CKD on a backdrop of long standing hypertension. She had not been monitoring her BP closely at home until recently but has been compliant with metoprolol. She has history of paroxysmal atrial fibrillation on xarelto . She was recently diagnosed with retinal hemorrhages. She is not a diabetic. She denies Carotid stenosis, CAD, CHF, PAD, MITUL, CVA, recurrent UTI's, renal stones, hearing deficits, M/S hematuria, joint swellings, photosensitivity, skin rashes, epistaxis, hemoptysis, hemetemesis or melena. She denies new bone or back pain. She doesn't take excess NSAID's. She was recently found to have high IgM levels with [employer] monoclonal bands and has seen commercial portfolio manager. She has no symptoms of hyperviscosity. She is anxious and concerned about high IgM levels and was wondering whether its associated with hematological malignancy. She has remote H/O breast cancer. She is not known to have proteinuria. Her BP was not well controlled on metoprolol and amlodipine was added with better control. She denies being on ACEI/ARB. Her last serum creatinine was 0.92 PFSH Medical History Current use of terminal gauger supervisor anticoagulation Retinal hemorrhage, bilateral Decreased renal function Elevated serum creatinine Lumbar back pain with radiculopathy affecting left lower extremity History of left breast cancer Vaginal pruritus On anticoagulant therapy On beta kemal at home Nasal sinus congestion Dyslipidemia Anxiety disorder Pruritic intertrigo Low back pain Paroxysmal atrial fibrillation HTN (hypertension) Surgical History History of cataract extraction History of lumpectomy of left breast Family History Father Enlarged heart Hyperlipidemia Mother Uterine cancer Maternal Aunt Breast cancer Brother Mental health disorder Sister Mental health disorder Sister No problems noted. Son No problems noted. Son No problems noted. Social History Household Members: Spouse Housing: House Are you a primary disabilities caregiver to a significant other at home: No Do you presently have visiting nurse or other home services: No Alcohol intake: never Patient Tobacco Use Status: Never used Tobacco e-Cigarette/Vaping Use: Never Used Second Hand Smoke Exposure: No service: No Current occupational status: retired Cognitive needs: No Hearing needs: No Vision needs: Yes Vital Signs 12/07/23 14:05 Height 5 ft 2 in BP 140/70 H Blood Pressure Location Rt brachial Position Sitting Pulse 68 Pulse Source Pulse Oximeter Pulse Oximetry (%) 97 Oxygen Delivery Method Room Air Physical Exam Vital Signs: Last Vital Signs Pulse 68 12/07/23 14:05 BP 140/70 H 12/07/23 14:05 Pulse Ox 97 12/07/23 14:05 Oxygen Delivery Method Room Air 12/07/23 14:05 Const General: comfortable and no acute distress Orientation/consciousness: patient oriented x3 HEENT Head: Yes normocephalic Mouth: Normal oral and palatal mucosa present Eyes EOM: EOMs intact bilaterally Neck Neck: Yes supple Resp Auscultation: clear to auscultation bilaterally Cardio Jugular venous distension: no JVD Rate: regular rate GI Palpation (GI): Soft to palpation Auscultation: normal bowel sounds General: Yes no CVA tenderness Back/Spine/Pelvis Back: no CVA tenderness Skin General skin exam: no rashes or lesions noted Neuro General: patient oriented x3 and moves all extremities Extrem General: Yes no pedal edema Assessment & Plan Assessment & Plan (1) CKD (chronic kidney disease) stage 2, GFR 60-89 ml/min: Code(s): N18.2 - Chronic kidney disease, stage 2 (mild) (2) Renal artery stenosis: Code(s): I70.1 - Atherosclerosis of renal artery (3) HTN (hypertension): Code(s): I10 - Essential (primary) hypertension Qualifiers: Hypertension type: primary hypertension Qualified Code(s): I10 - Essential (primary) hypertension Plan 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 Her serum creatinine is fairly stable. She has no blood or protein in the urine. Doppler of renal arteries showed hemodynamically significant right renal artery stenosis. Her 24 hour urine showed GFR of close to 80 mls/mt. 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 She has no hyperviscosity symptoms. She will need bone marrow biopsy. She has no anemia, hypercalcemia, pancytopenia or rising serum creatinine. She will be a candidate for ACEI/ARB in the future. I did not make any medication changes today. All her and her husbands questions were answered. Orders: Orders Electrolytes 12/07/23 I70.1 - Atherosclerosis of renal artery, N18.2 - Chronic kidney disease, stage 2 (mild) Creatinine 12/07/23 I70.1 - Atherosclerosis of renal artery, N18.2 - Chronic kidney disease, stage 2 (mild) Blood Urea Nitrogen 12/07/23 I70.1 - Atherosclerosis of renal artery, N18.2 - Chronic kidney disease, stage 2 (mild) Coding Level of Care Code Est Pt Level 4 (56225) Diagnoses CKD (chronic kidney disease) stage 2, GFR 60-89 ml/min N18.2 Renal artery stenosis I70.1 Primary hypertension I10 Hypertension type: primary hypertension Results Reviewed Nephrology Results: Sodium 140 mmol/L (135-145) 11/25/23 Potassium 3.9 mmol/L (3.3-5.1) 11/25/23 Chloride 106 mmol/L (96-108) 11/25/23 Carbon Dioxide 25 mmol/L (22-29) 11/25/23 BUN 18 mg/dL (9-16) H 11/25/23 Creatinine 0.92 mg/dL (0.5-1.4) 11/25/23 Calcium 9.4 mg/dL (8.4-10.2) 11/25/23 Urine Creatinine 139.98 mg/dL 11/25/23 Protein/Creatinin Ratio TNP 11/25/23 Renal US 10/06/23
[2023-12-07 14:05] VITALS: BP 140/70; PULSE 68; O2SAT 97
== END 2023-12-07 14:41 | disposition home or self-care (01) ==
PROVIDERS: PCP Internal Medicine; Visit Provider Internal Medicine Nephrology
DX: I12.9 Hypertensive chronic kidney disease with stage 1 through stage 4 chronic kidney disease, or unspecified chronic kidney disease (principal); N18.2 Chronic kidney disease, stage 2 (mild); I70.1 Atherosclerosis of renal artery
CPT/HCPCS: 99214

== ENCOUNTER → 2023-12-07 13:52 | Outpatient (BNVA) | payer OTHER, SELFPAY | PROVIDERS: PCP Internal Medicine; Visit Provider Internal Medicine Nephrology ==

== ENCOUNTER 2023-12-30 13:48 | Outpatient (AMB) | payer MEDICARE, OTHER, SELFPAY ==
--- NOTE | 2023-12-30 13:50 | MHC.OFFVIS ---
Intake Vital Signs 12/30/23 13:51 Height 5 ft 2 in Weight 180 lb BMI 32.9 BP 139/73 Blood Pressure Location Lt brachial Position Sitting Pulse 66 Intake Visit Reasons: 6 month follow up Intake Note: Patient follow up for GERD. Patient denies any GI issues for today. Executive Vice President And Chief Operating Officer Required: No Accompanied by: Self / Same As Patient Allergies bupropion [From Wellbutrin] Allergy (Unknown, Verified 12/30/23 13:49) burning sensation citalopram Allergy (Unknown, Verified 12/30/23 13:49) burning sensatin in skin HPI 6 month follow up HPI Details LAST VISIT: GERD (gastroesophageal reflux disease) Continue Pepcid on as needed basis. Discussed with patient avoiding dietary triggers and late night snacking. Staying upright for minimum 3 hours after meals discussed with patient. Patient will try to lose weight and she was better meal plan. Patient will follow-up with her Nephrology office where they can assist her with seeing diet patient or nurse to go over appropriate diet. IBS (irritable bowel syndrome) Occasional postprandial abdominal bloating. Discussed with patient the importance of going for colonoscopy. Patient states that she would like to have some little bit time to figure out how she can lose weight. She was diagnosed with stage III CKD and would like to have the procedure maybe next year. Patient reports that she is quite depressed about it. Discussed with her that if she goes for colonoscopy we can possibly go for upper endoscopy if she continues to have acid reflux and dyspepsia. I will see patient in 6 months, sooner on as needed basis. Patient is agreeable to this plan and verbalizes understanding of instructions. She was given the opportunity to ask questions and all questions answered. ? TODAY'S VISIT: Patient is here today for follow-up. Patient reports that she will agree to going for colonoscopy now that she is feeling better. Patient states that she was told that her kidney injury was most likely from hypertension. Her last kidney function test were good. Patient was placed on additional medication to treat her hypertension. Patient reports acid reflux continues. Controlled for the most part with famotidine, however patient continues to have postprandial epigastric discomfort with dyspepsia, without dysphagia or odynophagia. Patient would like to go for upper endoscopy as well. Patient is on Xarelto for AFib. Has seen her pull through hooker in August and had nuclear stress test that was normal in November. Will send patient pull through hooker message for clearance and management of Xarelto prior to procedure. Patient denies any issues with anesthesia in the past. No history of sleep apnea. [facility] Medical History Current use of assisted anticoagulation Retinal hemorrhage, bilateral Decreased renal function Elevated serum creatinine Lumbar back pain with radiculopathy affecting left lower extremity History of left breast cancer Vaginal pruritus On anticoagulant therapy On beta kemal at home Nasal sinus congestion Dyslipidemia Anxiety disorder Pruritic intertrigo Low back pain Paroxysmal atrial fibrillation HTN (hypertension) Surgical History History of cataract extraction History of lumpectomy of left breast Family History Father Enlarged heart Hyperlipidemia Mother Uterine cancer Maternal Aunt Breast cancer Brother Mental health disorder Sister Mental health disorder Sister No problems noted. Son No problems noted. Son No problems noted. Social History Household Members: Spouse Housing: House Are you a primary hourly caregiver to a significant other at home: No Do you presently have visiting nurse or other home services: No Alcohol intake: never Patient Tobacco Use Status: Never used Tobacco e-Cigarette/Vaping Use: Never Used Second Hand Smoke Exposure: No service: No Current occupational status: retired Cognitive needs: No Hearing needs: No Vision needs: Yes Review of Systems Const Denies weight gain and Denies weight loss ENT Reports no additional complaints, Denies dysphagia and Denies odynophagia Card Reports no additional complaints Resp Reports no additional complaints GI Denies abdominal pain, Denies belching, Denies melena, Denies bloating, Denies change in bowel habits, Denies dysphagia, Denies excessive flatus, Denies dyspepsia, Reports heartburn, Denies diarrhea, Denies loose stools, Denies nausea, Denies odynophagia and Denies vomiting Reports no additional complaints Musc Reports no additional complaints Neuro Reports no additional complaints Psych Reports no additional complaints Endo Reports no additional complaints Physical Exam Vital Signs: Last Vital Signs Pulse 66 12/30/23 13:51 BP 139/73 12/30/23 13:51 BMI result Body Mass Index 32.9 Const General: healthy appearing and no acute distress Nutritional Appearance: obese Orientation/consciousness: patient oriented x3 Resp Effort & Inspection: normal respiratory effort, able to speak in complete sentences, no tracheal deviation and symmetric chest movement Auscultation: clear to auscultation bilaterally Cardio Rate: regular rate GI Inspection: Yes normal to inspection, No distended and Yes obesity Palpation (GI): Soft to palpation, not firm, nontender and No hepatosplenomegaly present Auscultation: normal bowel sounds General: Yes no CVA tenderness Back/Spine/Pelvis Back: no CVA tenderness Skin General skin exam: elasticity normal, turgor normal and dry skin Neuro General: patient oriented x3 Psych Appearance: grossly normal Mental Status: mental status grossly normal Assessment & Plan Assessment & Plan (1) GERD (gastroesophageal reflux disease): Code(s): K21.9 - Gastro-esophageal reflux disease without esophagitis Qualifiers: Esophagitis presence: esophagitis presence not specified Qualified Code(s): K21.9 - Gastro-esophageal reflux disease without esophagitis (2) IBS (irritable bowel syndrome): Code(s): K58.9 - Irritable bowel syndrome without diarrhea Qualifiers: Irritable bowel syndrome type: without diarrhea Qualified Code(s): K58.9 - Irritable bowel syndrome without diarrhea (3) Transaminitis: Code(s): R74.01 - Elevation of levels of liver transaminase levels (4) Screen for colon cancer: Code(s): Z12.11 - Encounter for screening for malignant neoplasm of colon Plan Continue famotidine on as needed basis. Discussed with patient avoiding dietary triggers and late night snacking. Staying upright for minimum 3 hours after meals discussed with patient. Patient will go for upper endoscopy to rule out gastritis, esophagitis, duodenitis, H pylori, Walsh's, gastric or peptic ulcers. What to expect before during and after procedure discussed with patient. Patient will also go for colonoscopy. Message sent to pull through hooker for clearance. Patient had normal nuclear stress test. Denies any cardiac or respiratory symptoms. Currently on Xarelto, if cleared patient will need to hold Xarelto for 48 hours prior to the procedure. Back in May patient had elevated liver enzymes will repeat the levels again and will send patient for limited ultrasound of the liver with elastography. Patient will return in the office after the procedure, sooner on as needed basis. Patient is agreeable to this plan and verbalizes understanding of instructions. She was given the opportunity to ask questions and all questions answered. Thank you for allowing me to participate in her care Orders: Orders Liver Panel Today R74.01 - Elevation of levels of liver transaminase levels US abdomen fink w elastography Today R74.01 - Elevation of levels of liver transaminase levels Medications: New polyethylene glycol 3350 (Miralax) As directed by gastroenterology department at [facility] 238 grams PO ONCE 238 grams 0RF Z12.11 - Encounter for screening for malignant neoplasm of colon famotidine (Pepcid) 20 mg PO DAILY PRN 30 tabs 3RF acid reflux K21.9 - Gastro-esophageal reflux disease without esophagitis bisacodyl (Dulcolax (bisacodyl)) take 4 tabs at noon the day before your colonoscopy 20 mg (4 x 5 mg) PO ONCE 1 day 4 tabs 0RF Z12.11 - Encounter for screening for malignant neoplasm of colon Coding Level of Care Code Est Pt Level 4 (36149) Diagnoses Gastroesophageal reflux disease, unspecified whether esophagitis present K21.9 Esophagitis presence: esophagitis presence not specified Irritable bowel syndrome without diarrhea K58.9 Irritable bowel syndrome type: without diarrhea Transaminitis R74.01 Screen for colon cancer Z12.11 Time Spent (min) 40 Comment 25 minutes spent with patient and additional 15 minutes spent reviewing her records
[2023-12-30 13:51] VITALS: BP 139/73; PULSE 66; BMI 32.9
== END 2023-12-30 14:30 | disposition home or self-care (01) ==
PROVIDERS: PCP Internal Medicine; Visit Provider Nurse Practitioner Family
DX: K21.9 Gastro-esophageal reflux disease without esophagitis (principal); K58.9 Irritable bowel syndrome, unspecified; R74.01 Elevation of levels of liver transaminase levels; Z12.11 Encounter for screening for malignant neoplasm of colon
CPT/HCPCS: 99214

== ENCOUNTER → 2023-12-30 13:48 | Outpatient (BNVA) | payer MEDICARE, OTHER, SELFPAY | PROVIDERS: PCP Internal Medicine; Visit Provider Nurse Practitioner Family | DX: K21.9 Gastro-esophageal reflux disease without esophagitis (principal); K58.9 Irritable bowel syndrome, unspecified; R74.01 Elevation of levels of liver transaminase levels | CPT/HCPCS: 99212 ==

== ENCOUNTER 2024-01-17 11:59 | Outpatient (AMB) | payer MEDICARE, OTHER, SELFPAY ==
--- NOTE | 2024-01-17 12:15 | A.OFFVIS_ITS ---
Intake Vital Signs 01/17/24 12:22 Height 5 ft 2 in Weight 182 lb BMI 33.3 BP 128/62 Blood Pressure Location Lt brachial Position Sitting Pulse 64 Intake Visit Reasons: follow up req by Vandana Alberto Note: Patient follow up for heartburn Patient cc: heartburn with burning sensation come and go, and between diarrhea and constipation on and off. Post Doctoral Researcher Required: No Accompanied by: Self / Same As Patient Allergies bupropion [From Wellbutrin] Allergy (Unknown, Verified 01/17/24 12:14) burning sensation citalopram Allergy (Unknown, Verified 01/17/24 12:14) burning sensatin in skin HPI follow up req by Vandana HPI Details LAST VISIT GERD (gastroesophageal reflux disease) IBS (irritable bowel syndrome) Transaminitis Screen for colon cancer Plan Continue famotidine on as needed basis. Discussed with patient avoiding dietary triggers and late night snacking. Staying upright for minimum 3 hours after meals discussed with patient. Patient will go for upper endoscopy to rule out ga stritis, esophagitis, duodenitis, H pylori, Walsh's, gastric or peptic ulcers. What to expect before during and after procedure discussed with patient. Patient will also go for colonoscopy. Message sent to tariff compiler for clearance. Patient had normal nuclear stress test. Denies any cardiac or respiratory symptoms. Currently on Xarelto, if cleared patient will need to hold Xarelto for 48 hours prior to the procedure. Back in May patient had elevated liver enzymes will repeat the levels again and will send patient for limited ultrasound of the liver with elastography. Patient will return in the office after the procedure, sooner on as needed basis. Patient is agreeable to this plan and verbalizes understanding of instructions. She was given the opportunity to ask questions and all questions answered. ? Thank you for allowing me to participate in her care Orders Orders Liver Panel Today R74.01 US abdomen fink w elastography Today R74.01 Medications New polyethylene glycol 3350 (Miralax) As directed by gastroenterology department at [facility] 238 grams PO ONCE 238 grams 0RF Z12.11 famotidine (Pepcid) 20 mg PO DAILY PRN 30 tabs 3RF acid refl ux K21.9 bisacodyl (Dulcolax (bisacodyl)) take 4 tabs at noon the day before your colonoscopy 20 mg (4 x 5 mg) PO ONCE 1 day 4 tabs 0R F Z12.11 TODAY'S VISIT: Patient is here today for follow-up and discuss ultrasound results. Patient had ultrasound just recently at [facility] that showed hepatic steatosis. Patient's liver enzymes elevated in May of last year, however labs reviewed from [facility] from October with AST only mildly elevated. Patient reports that she does not drink alcohol. Is not on any supplements. She is aware that she gained weight and is having hard time losing it. Patient admits to having craving for sweets food as well as carbs. Patient is asking for help of what kind food she should be eating and what to avoid. Patient reports occasional postprandial loose stools then constipation. Patient reports that depending on what she eats. Patient does admit to be feeling little anxious and worries about her health. [facility] Medical History Current use of prison anticoagulation Retinal hemorrhage, bilateral Decreased renal function Elevated serum creatinine Lumbar back pain with radiculopathy affecting left lower extremity History of left breast cancer Vaginal pruritus On anticoagulant therapy On beta kemal at home Nasal sinus congestion Dyslipidemia Anxiety disorder Pruritic intertrigo Low back pain Paroxysmal atrial fibrillation HTN (hypertension) Surgical History History of cataract extraction History of lumpectomy of left breast Family History Father Enlarged heart Hyperlipidemia Mother Uterine cancer Maternal Aunt Breast cancer Brother Mental health disorder Sister Mental health disorder Sister No problems noted. Son No problems noted. Son No problems noted. Social History Household Members: Spouse Housing: House Are you a primary respiratory care assistant to a significant other at home: No Do you presently have visiting nurse or other home services: No Alcohol intake: never Patient Tobacco Use Status: Never used Tobacco e-Cigarette/Vaping Use: Never Used Second Hand Smoke Exposure: No service: No Current occupational status: retired Cognitive needs: No Hearing needs: No Vision needs: Yes Review of Systems Const Denies weight gain and Denies weight loss ENT Reports no additional complaints, Denies dysphagia and Denies odynophagia Card Reports no additional complaints Resp Reports no additional complaints GI Denies abdominal pain, Denies belching, Denies melena, Denies bloating, Denies change in bowel habits, Denies dysphagia, Denies excessive flatus, Denies dyspepsia, Denies heartburn, Denies diarrhea, Denies loose stools, Denies nausea, Denies odynophagia and Denies vomiting Musc Reports no additional complaints Neuro Reports no additional complaints Psych Reports no additional complaints Endo Reports no additional complaints Physical Exam Vital Signs: Last Vital Signs Pulse 64 01/17/24 12:22 BP 128/62 01/17/24 12:22 BMI result Body Mass Index 33.3 Const General: healthy appearing and no acute distress Nutritional Appearance: obese Orientation/consciousness: patient oriented x3 Cardio Rate: regular rate GI Inspection: Yes normal to inspection, No distended and Yes obesity Palpation (GI): Soft to palpation, not firm, nontender and No hepatosplenomegaly present Auscultation: normal bowel sounds General: Yes no CVA tenderness Back/Spine/Pelvis Back: no CVA tenderness Skin General skin exam: elasticity normal, turgor normal and dry skin Neuro General: patient oriented x3 Psych Appearance: grossly normal Mental Status: mental status grossly normal Assessment & Plan Assessment & Plan (1) GERD (gastroesophageal reflux disease): Code(s): K21.9 - Gastro-esophageal reflux disease without esophagitis Qualifiers: Esophagitis presence: esophagitis presence not specified Qualified Code(s): K21.9 - Gastro-esophageal reflux disease without esophagitis (2) IBS (irritable bowel syndrome): Code(s): K58.9 - Irritable bowel syndrome without diarrhea Qualifiers: Irritable bowel syndrome type: with both diarrhea and constipation Qualified Code(s): K58.2 - Mixed irritable bowel syndrome (3) Transaminitis: Code(s): R74.01 - Elevation of levels of liver transaminase levels Plan Patient was encouraged to lose weight. Patient will try to use supplement berberin with breakfast to see if it will suppress her craving for carbs. Patient will try to do regular exercise. Avoid dietary triggers. Eat low-fat food and combination with some protein. Patient is scheduled for colonoscopy in May. Patient will also go for upper endoscopy due to long history of PPI use and now currently on H2 kemal. I will see patient in 2 months, sooner on as needed basis. Patient will repeat liver enzymes just before commimg in for her appointment. Patient is agreeable to this plan and verbalizes understanding of instructions. She was given the opportunity to ask questions and all questions answered. Thank you for allowing me to participate in her care Coding Level of Care Code Est Pt Level 4 (27468) Diagnoses Gastroesophageal reflux disease, unspecified whether esophagitis present K21.9 Esophagitis presence: esophagitis presence not specified Irritable bowel syndrome with both constipation and diarrhea K58.2 Irritable bowel syndrome type: with both diarrhea and constipation Transaminitis R74.01 Time Spent (min) 35 Comment 20 minutes spent with patient and additional 15 minutes spent reviewing her records
[2024-01-17 12:22] VITALS: BP 128/62; PULSE 64; BMI 33.3
== END 2024-01-17 12:45 | disposition home or self-care (01) ==
PROVIDERS: PCP Internal Medicine; Visit Provider Nurse Practitioner Family
DX: K21.9 Gastro-esophageal reflux disease without esophagitis (principal); K58.2 Mixed irritable bowel syndrome; R74.01 Elevation of levels of liver transaminase levels
CPT/HCPCS: 99214

== ENCOUNTER → 2024-01-17 11:59 | Outpatient (BNVA) | payer MEDICARE, OTHER, SELFPAY | PROVIDERS: PCP Internal Medicine; Visit Provider Nurse Practitioner Family | DX: K21.9 Gastro-esophageal reflux disease without esophagitis (principal); K58.2 Mixed irritable bowel syndrome; R74.01 Elevation of levels of liver transaminase levels | CPT/HCPCS: 99212 ==

== ENCOUNTER 2024-04-23 12:32 | Outpatient (AMB) | payer MEDICARE, OTHER, SELFPAY ==
--- NOTE | 2024-04-23 12:51 | MHC.PC.OV ---
Vital Signs 04/23/24 12:52 Height 5 ft 2 in Weight 185 lb BMI 33.8 BP 140/80 H Blood Pressure Location Rt brachial Position Sitting Pulse 66 Pulse Source Pulse Oximeter Pulse Oximetry (%) 95 Oxygen Delivery Method Room Air Intake Visit Reasons: Annual PE Intake Note: Pt is here today for her PE: last mammogram 09/30/23, colonoscopy 01/10/15 Allergies bupropion [From Wellbutrin] Allergy (Unknown, Verified 04/23/24 13:01) burning sensation citalopram Allergy (Unknown, Verified 04/23/24 13:01) burning sensatin in skin Medication List - Last Reconciled 04/23/24 by Bijal Umana MD amlodipine 5 mg PO DAILY cholecalciferol (vitamin D3) 25 mcg PO DAILY famotidine (Pepcid) 20 mg PO DAILY PRN flecainide 50 mg PO BID 90 days fluticasone propionate 50 mcg/actuation (Flonase Allergy Relief) 1 spray intranasal BID PRN lorazepam 0.5 mg PO DAILY PRN mastectomy bra (bra, mastectomy) As directed metoprolol tartrate 50 mg PO BID Prosthesis, breast (Breast prosthesis) As directed rivaroxaban (Xarelto) 20 mg PO BEDTIME rosuvastatin 10 mg PO DAILY Tobacco use date assessed: 04/23/24 Fall risk assessment: No Falls in past year Last assessed Fall Risk: 04/23/24 Dental Screening Dental Screen Date: 04/23/24 Did you have a dental visit in the last 12 months?: Yes Did you have a dental problem in the last 6 months where you did not have access to dental care?: No Was dental information given to patient?: Patient has dentist HPI Annual PE HPI Details 74 year old lady with history of paroxysmal atrial fibrillation on xarelto , has hypertension, hyperlipidemia, history of bilateral trochanteric bursitis, history of breast cancer, osteopenia of lumbar spine, history of in artery stenosis with chronic kidney disease stage 2, and anxiety here today for her physical exam. She is up-to-date with her mammogram, and up-to-date as well as with her colon cancer screening, had a colonoscopy [place] [address] Ji with repeat due again in 2024. No longer gets cervical cancer screenings.. Up-to-date with all her vaccines [facility] Medical History (Updated 04/30/24 @ 02:23 by Bijal Umana MD) Osteopenia of lumbar spine History of left breast cancer Current use of terminal block assembler anticoagulation Retinal hemorrhage, bilateral Decreased renal function Elevated serum creatinine Lumbar back pain with radiculopathy affecting left lower extremity Vaginal pruritus On anticoagulant therapy On beta kemal at home Nasal sinus congestion Dyslipidemia Anxiety disorder Pruritic intertrigo Low back pain Paroxysmal atrial fibrillation HTN (hypertension) Surgical History History of cataract extraction History of lumpectomy of left breast Family History Father Enlarged heart Hyperlipidemia Mother Uterine cancer Maternal Aunt Breast cancer Brother Mental health disorder Sister Mental health disorder Sister No problems noted. Son No problems noted. Son No problems noted. Social History Household Members: Spouse Housing: House Are you a primary home care coordinator to a significant other at home: No Do you presently have visiting nurse or other home services: No Alcohol intake: never Patient Tobacco Use Status: Never used Tobacco e-Cigarette/Vaping Use: Never Used Second Hand Smoke Exposure: No service: No Current occupational status: retired Cognitive needs: No Hearing needs: No Vision needs: Yes Questionnaire PHQ-9 Over the last 2 weeks, how often have you been bothered by any of the following problems? 1. Little interest or pleasure in doing things: not at all 2. Feeling down, depressed, or hopeless: not at all 3. Trouble falling or staying asleep, or sleeping too much: not at all 4. Feeling tired or having little energy: not at all 5. Poor appetite or overeating: not at all 6. Feeling bad about yourself - or that you are a failure or have let yourself or your family down: not at all 7. Trouble concentrating on things, such as reading the newspaper or watching television: not at all 8. Moving or speaking so slowly that other people could have noticed. Or the opposite - being so fidgety or restless that you have been moving around a lot more than usual: not at all 9. Thoughts that you would be better off or of hurting yourself in some way: not at all Total score: 0 Depression Screening Interpretation: Negative Depression Screening Done: Yes 87785 - PHQ-9 Billing: Yes Source: Developed by Drs. Antony Samuel, Isis Christensen, Mehul Casper and colleagues, with an educational roseline from [employer]. Thrive Questionnaire Date Thrive assessed: 04/23/24 I am a: Patient What is your living situation today?: I have a steady place to live Within the past 12 months, did the food you bought not last and you didn't have the money to get more?: Never true Within the past 12 months, did you worry whether your food would run out before you got money to buy more?: Never true Do you have trouble paying for medicines?: No Do you have trouble getting transportation to medical appointments?: No Do you have trouble paying your heating and electricity bill?: No Do you have trouble taking care of your child, family member or friend?: No Do you have trouble with day-to-day activities such as bathing, preparing meals, shopping, managing finances, etc.?: No Are you currently unemployed and looking for a job?: No Are you interested in more education?: No Currently or been in a relationship where the following occur: No concerns reported THRIVE Score: 0 AUDIT C Alcohol Use Questionnaire (AUDIT-C) 1. How often do you have a drink containing alcohol?: Never Total Score: 0 HERNAN-7 AMB Questionnaire HERNAN-7 Date HERNAN - 7 assessed: 04/23/24 Feeling nervous, anxious, or on edge: 0 = Not at all Not being able to stop or control worryin = Not at all Worrying too much about different things: 0 = Not at all Trouble relaxin = Not at all Being so restless that it is hard to sit still: 0 = Not at all Becoming easily annoyed or irritable: 0 = Not at all Feeling afraid as if something awful might happen: 0 = Not at all Total HERNAN-7 score (0-4 normal; 5-9 mild; 10-14 moderate; 15-21 severe): 0 Source: Developed by Drs. Antony Samuel, Mehul Tran and colleagues, with an educational roseline from [employer]. HERNAN-7 Assessment Billing HERNAN-7 Assessment Tool: HERANN-7 Assessment 61794 Review of Systems Const Denies chills, Denies fatigue, Denies fever(s), Denies frequent falls, Denies weakness and Denies weight loss Eyes Reports no additional complaints ENT Denies dizziness Card Denies chest pain, Denies leg edema, Denies lightheadedness, Denies palpitations, Denies dyspnea and Denies dyspnea on exertion Resp Denies cough, Denies dyspnea and Denies dyspnea on exertion GI Denies hematochezia and Denies change in stool character Reports no additional complaints Musc Denies abnormal gait, Denies muscle weakness, Denies numbness, Denies radiating pain into limb and Denies tingling Skin/Breast Denies breast pain, Denies breast mass and Denies rash Neuro Denies abnormal gait, Denies dizziness, Denies frequent falls, Denies numbness, Denies tingling and Denies weakness Psych Reports no additional complaints Endo Denies fatigue and Denies palpitations Abundio/Lymph Reports no additional complaints Aller/Immun Reports no additional complaints Physical exam (Primary Care) Vital Signs: Last Vital Signs Pulse 66 04/23/24 12:52 BP 140/80 H 04/23/24 12:52 Pulse Ox 95 04/23/24 12:52 Oxygen Delivery Method Room Air 04/23/24 12:52 BMI result Body Mass Index 33.8 Tobacco/Smoking Status: Tobacco use Status Tobacco use date assessed 04/23/24 04/23/24 12:56 Patient Tobacco Use Status Never used Tobacco 04/23/24 12:56 e-Cigarette/Vaping Use Never Used 04/23/24 12:56 PHQ-9: PHQ-9 Score PHQ-9: Total score 0 04/23/24 13:06 Depression Screening Interpretation: Negative Thrive Assessment: Date of Thrive Assessment Date Thrive assessed 10/20/21 04/23/24 12:56 Currently or been in a relationship where the following occur: No concerns reported Const Other: Alert oriented x3, no acute distress noted Nutritional Appearance: obese Orientation/consciousness: patient oriented x3 [facility] General nose exam: Normal external nose present and No nasal discharge present Face and sinus: Yes face symmetric Mouth: Normal oral and palatal mucosa present and moist mucous membranes Eyes General: appearance normal, both eyes and all related structures Conjunctivae: conjunctivae normal Sclerae: sclerae normal Pupils: Equal, round and reactive pupils present EOM: EOMs intact bilaterally Neck Neck: Yes full ROM, Yes no lymphadenopathy and Yes supple Thyroid: Thyroid normal Chest Breast/axilla palpation: normal palpation of the breasts Resp Auscultation: clear to auscultation bilaterally Cardio Other: S1-S2 present regular rate and rhythm GI Palpation (GI): Soft to palpation, nontender, no guarding and no masses Auscultation: normal bowel sounds General: Yes no CVA tenderness Back/Spine/Pelvis Back: no CVA tenderness and No back tenderness Skin General skin exam: no rashes or lesions noted Neuro General: patient oriented x3, gait normal, moves all extremities, Normal light touch and pain sensation, no focal motor deficits and CN's II-XI intact bilaterally Cranial nerves: Yes Equal, round and reactive pupils present Extrem General: Yes full ROM, Yes no joint enlargement, Yes no pedal edema, Yes no calf tenderness and Yes normal gait Psych Appearance: grossly normal and well kempt Mental Status: mental status grossly normal Speech and movement: Normal speech and movement present Affect: normal affect Assessment and Plan Assessment & Plan (1) Annual visit for general adult medical examination with abnormal findings: Code(s): Z00.01 - Encounter for general adult medical examination with abnormal findings Plan: Will check appropriate labs. Recommended dental visit every 6 months and regular eye exams, at least every 2 years. Take adequate calcium in diet and vitamin-D 3 at 2000 IU per cap once a day, in addition to weight-bearing exercises to help maintain good muscle tone and weight control. Instructed to do self-breast exam, and continue with yearly mammogram, up-to-date with her colon cancer screening done in 2024, repeat colonoscopy due again in 2034. Up-to-date with her vaccine (2) Osteopenia of lumbar spine: Code(s): M85.88 - Other specified disorders of bone density and structure, other site Plan: Ordered another DEXA scan reminded to do regular weight-bearing exercise, take adequate calcium from dietary sources and continue with cholecalciferol 25 mcg daily (3) Renal artery stenosis: Code(s): I70.1 - Atherosclerosis of renal artery Plan: Followed by Nephrology (4) CKD (chronic kidney disease) stage 2, GFR 60-89 ml/min: Code(s): N18.2 - Chronic kidney disease, stage 2 (mild) Plan: Followed by Dr. Cintron (5) HTN (hypertension): Code(s): I10 - Essential (primary) hypertension Qualifiers: Hypertension type: primary hypertension Qualified Code(s): I10 - Essential (primary) hypertension Plan: Blood pressure elevated on this visit. Will continue with bili tartrate and amlodipine [address] Cintron Reinforced importance of following a low sodium diet, getting regular exercise, and lowering stress levels. (6) Paroxysmal atrial fibrillation: Comment: FRANCHESKA guided cardioversion in December of 2015. Normal structure of the heart Foll'd by Dr. Anna Code(s): I48.0 - Paroxysmal atrial fibrillation Plan: Currently on Xarelto and metoprolol tartrate 50 mg 1 tablet twice a day, and flecainide (7) Dyslipidemia: Code(s): E78.5 - Hyperlipidemia, unspecified Plan: Fasting lipid panel ordered, continue rosuvastatin 10 mg daily (8) Current use of retirement anticoagulation: Code(s): Z79.01 - longterm (current) use of anticoagulants Orders: Orders Lipid Panel 04/23/24 Z00.01 - Encounter for general adult medical examination with abnormal findings, Z13.220 - Encounter for screening for lipoid disorders, Z78.0 - Asymptomatic menopausal state Vitamin D 25-OH Total 04/23/24 Z00.01 - Encounter for general adult medical examination with abnormal findings, Z13.220 - Encounter for screening for lipoid disorders, Z78.0 - Asymptomatic menopausal state XR DEXA axial skeleton 04/23/24 M85.88 - Other specified disorders of bone density and structure, other site Coding Level of Care Code Est Pt Prev Care >65y(30611) Diagnoses Annual visit for general adult medical examination with abnormal findings Z00.01 Osteopenia of lumbar spine M85.88 Renal artery stenosis I70.1 CKD (chronic kidney disease) stage 2, GFR 60-89 ml/min N18.2 Primary hypertension I10 Hypertension type: primary hypertension Paroxysmal atrial fibrillation I48.0 Dyslipidemia E78.5 Current use of terminal block assembler anticoagulation Z79.01 Additional Codes HERNAN-7 Assessment Billing - HERNAN-7 Assessment Tool: HERNAN-7 Assessment [id number] ([id number])
[2024-04-23 12:52] VITALS: BP 140/80; PULSE 66; O2SAT 95; BMI 33.8
== END 2024-04-23 14:11 | disposition home or self-care (01) ==
PROVIDERS: PCP Internal Medicine; Visit Provider Internal Medicine
DX: Z00.01 Encounter for general adult medical examination with abnormal findings (principal); I12.9 Hypertensive chronic kidney disease with stage 1 through stage 4 chronic kidney disease, or unspecified chronic kidney disease; N18.2 Chronic kidney disease, stage 2 (mild); I70.1 Atherosclerosis of renal artery; I48.0 Paroxysmal atrial fibrillation; M85.88 Other specified disorders of bone density and structure, other site; E78.5 Hyperlipidemia, unspecified; Z79.01 Long term (current) use of anticoagulants
CPT/HCPCS: 99397

== ENCOUNTER 2024-05-30 12:57 | Outpatient (REF) | payer MEDICARE, OTHER, SELFPAY ==
[2024-05-30 16:29] LABS: Anion Gap 12 (12-20); Blood Urea Nitrogen 17 mg/dL (9-16); Carbon Dioxide 24 mmol/L (22-29); Chloride 103 mmol/L (96-108); Estimated Glomerular Filt Rate 50; Potassium 4.3 mmol/L (3.3-5.1); Sodium 135 mmol/L (135-145)
== END 2024-05-30 12:58 | disposition home or self-care (01) ==
LOC: HO.HMGCLDS 12:57
PROVIDERS: PCP Internal Medicine; Visit Provider Internal Medicine Nephrology
DX: I70.1 Atherosclerosis of renal artery (principal); N18.2 Chronic kidney disease, stage 2 (mild)
CPT/HCPCS: 36415; 80051; 82565; 84520

== ENCOUNTER 2024-06-07 15:41 | Outpatient (AMB) | payer MEDICARE, OTHER, SELFPAY ==
[2024-06-07 16:03] VITALS: BP 130/70; PULSE 72; O2SAT 98
--- NOTE | 2024-06-07 16:03 | HO.NEPHOV ---
Vital Signs 06/07/24 16:03 Height 5 ft 2 in BP 130/70 Blood Pressure Location Rt brachial Position Sitting Pulse 72 Pulse Source Pulse Oximeter Pulse Oximetry (%) 98 Oxygen Delivery Method Room Air Intake Visit Reasons: CKD / 6 MO FU- Conf Survey Supervisor Required: No Accompanied by: Spouse Allergies bupropion [From Wellbutrin] Allergy (Unknown, Verified 06/07/24 16:07) burning sensation citalopram Allergy (Unknown, Verified 06/07/24 16:07) burning sensatin in skin HPI Comments Details: I had the privilege of seeing Shellie in follow up for her mild CKD on a backdrop of long standing hypertension. She had not been monitoring her BP closely at home until recently but has been compliant with metoprolol. She has history of paroxysmal atrial fibrillation on xarelto . She was recently diagnosed with retinal hemorrhages. She is not a diabetic. She denies Carotid stenosis, CAD, CHF, PAD, MITUL, CVA, recurrent UTI's, renal stones, hearing deficits, M/S hematuria, joint swellings, photosensitivity, skin rashes, epistaxis, hemoptysis, hemetemesis or melena. She denies new bone or back pain. She doesn't take excess NSAID's. She was recently found to have high IgM levels with [place] monoclonal bands and has seen top lifter who is going to have BM biopsy on Jun 13. She has no symptoms of hyperviscosity. She has remote H/O breast cancer. She had CT abdomen which showed some abnormal thickening and is being investigated. She is not known to have proteinuria. Her BP was not well controlled on metoprolol and amlodipine was added with better control. She denies being on ACEI/ARB. Her last serum creatinine has been stable [facility] Medical History (Updated 04/30/24 @ 02:23 by Bijal Umana MD) Osteopenia of lumbar spine History of left breast cancer Current use of snf anticoagulation Retinal hemorrhage, bilateral Decreased renal function Elevated serum creatinine Lumbar back pain with radiculopathy affecting left lower extremity Vaginal pruritus On anticoagulant therapy On beta kemal at home Nasal sinus congestion Dyslipidemia Anxiety disorder Pruritic intertrigo Low back pain Paroxysmal atrial fibrillation HTN (hypertension) Surgical History History of cataract extraction History of lumpectomy of left breast Family History Father Enlarged heart Hyperlipidemia Mother Uterine cancer Maternal Aunt Breast cancer Brother Mental health disorder Sister Mental health disorder Sister No problems noted. Son No problems noted. Son No problems noted. Social History Household Members: Spouse Housing: House Are you a primary career technical counselor to a significant other at home: No Do you presently have visiting nurse or other home services: No Alcohol intake: never Patient Tobacco Use Status: Never used Tobacco e-Cigarette/Vaping Use: Never Used Second Hand Smoke Exposure: No service: No Current occupational status: retired Cognitive needs: No Hearing needs: No Vision needs: Yes Physical Exam Vital Signs: Last Vital Signs Pulse 72 06/07/24 16:03 BP 150/80 H 06/07/24 16:03 Pulse Ox 98 06/07/24 16:03 Oxygen Delivery Method Room Air 06/07/24 16:03 Results Reviewed Nephrology Results: Sodium 135 mmol/L (135-145) 05/30/24 Potassium 4.3 mmol/L (3.3-5.1) 05/30/24 Chloride 103 mmol/L (96-108) 05/30/24 Carbon Dioxide 24 mmol/L (22-29) 05/30/24 BUN 17 mg/dL (9-16) H 05/30/24 Creatinine 1.07 mg/dL (0.5-1.4) 05/30/24 Calcium 9.4 mg/dL (8.4-10.2) 11/25/23 Urine Creatinine 139.98 mg/dL 11/25/23 Protein/Creatinin Ratio TNP 11/25/23 Renal US 10/06/23 Assessment & Plan Assessment & Plan (1) Renal artery stenosis: Code(s): I70.1 - Atherosclerosis of renal artery Category: Medical (2) CKD (chronic kidney disease) stage 2, GFR 60-89 ml/min: Code(s): N18.2 - Chronic kidney disease, stage 2 (mild) Category: Medical (3) HTN (hypertension): Code(s): I10 - Essential (primary) hypertension Category: Medical Qualifiers: Hypertension type: primary hypertension Qualified Code(s): I10 - Essential (primary) hypertension Plan 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 Her serum creatinine is fairly stable. She has no blood or protein in the urine. Doppler of renal arteries showed hemodynamically significant right renal artery stenosis. Her 24 hour urine showed GFR of close to 80 mls/mt. 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 She has no hyperviscosity symptoms. She will need bone marrow biopsy. She has no anemia, hypercalcemia, pancytopenia or rising serum creatinine. She will be a candidate for ACEI/ARB in the future. I did not make any medication changes today. All her and her husbands questions were answered. Orders: Orders Electrolytes Today I10 - Essential (primary) hypertension, I70.1 - Atherosclerosis of renal artery, N18.2 - Chronic kidney disease, stage 2 (mild) Creatinine Today I10 - Essential (primary) hypertension, I70.1 - Atherosclerosis of renal artery, N18.2 - Chronic kidney disease, stage 2 (mild) Blood Urea Nitrogen Today I10 - Essential (primary) hypertension, I70.1 - Atherosclerosis of renal artery, N18.2 - Chronic kidney disease, stage 2 (mild) Coding Level of Care Code Est Pt Level 4 (58949) Diagnoses Renal artery stenosis I70.1 CKD (chronic kidney disease) stage 2, GFR 60-89 ml/min N18.2 Primary hypertension I10 Hypertension type: primary hypertension
== END 2024-06-07 16:39 | disposition home or self-care (01) ==
PROVIDERS: PCP Internal Medicine; Visit Provider Internal Medicine Nephrology
DX: I70.1 Atherosclerosis of renal artery (principal); I12.9 Hypertensive chronic kidney disease with stage 1 through stage 4 chronic kidney disease, or unspecified chronic kidney disease; N18.2 Chronic kidney disease, stage 2 (mild)
CPT/HCPCS: 99214

== ENCOUNTER → 2024-06-07 15:41 | Outpatient (BNVA) | payer OTHER, SELFPAY | PROVIDERS: PCP Internal Medicine; Visit Provider Internal Medicine Nephrology | DX: I12.9 Hypertensive chronic kidney disease with stage 1 through stage 4 chronic kidney disease, or unspecified chronic kidney disease (principal); N18.2 Chronic kidney disease, stage 2 (mild); I70.1 Atherosclerosis of renal artery | CPT/HCPCS: 99212 ==

== ENCOUNTER 2024-09-28 14:20 | Outpatient (AMB) | payer OTHER, MEDICARE, SELFPAY ==
[2024-09-28 14:24] VITALS: BP 152/76; PULSE 60; O2SAT 98
--- NOTE | 2024-09-28 14:24 | A.OFFVIS_ITS ---
Vital Signs 09/28/24 14:24 Height 5 ft 2 in BMI Reason not done Patient refused/unable BP 152/76 H Blood Pressure Location Rt brachial Position Sitting Pulse 60 Pulse Source Pulse Oximeter Pulse Oximetry (%) 98 Oxygen Delivery Method Room Air Intake Visit Reasons: rectal bleeding Intake Note: ESTABLISHED PATIENT Reason; scheduled in office 8 mos FUV Changes/concerns? Rectal Bleeding. Pt would also like to discuss reflux and ongoing treatment options. Pharmacy verified? [facility] Allergies bupropion [From Wellbutrin] Allergy (Unknown, Verified 09/28/24 14:25) burning sensation citalopram Allergy (Unknown, Verified 09/28/24 14:25) burning sensatin in skin HPI HPI rectal bleeding: Details: LAST VISIT: GERD (gastroesophageal reflux disease) IBS (irritable bowel syndrome) Transaminitis Plan Patient was encouraged to lose weight. Patient will try to use supplement berberin with breakfast to see if it will suppress her craving for carbs. Patient will try to do regular exercise. Avoid dietary triggers. Eat low-fat food and combination with some protein. Patient is scheduled for colonoscopy in May. Patient will also go for upper endoscopy due to long history of PPI use and now currently on H2 kemal. I will see patient in 2 months, sooner on as needed basis. Patient will repeat liver enzymes just before commimg in for her appointment. Patient is agreeable to this plan and verbalizes understanding of instructions. She was given the opportunity to ask questions and all questions answered. TODAY'S VISIT Patient is here today for requested visit. Patient experience rectal bleeding after her biopsy procedure at [facility]. Patient had uterine biopsy and was bleeding vaginally, became constipated and then started bleeding rectally. Patient reported large amount of blood in the toilet after bowel movement. Patient was supposed to go for colonoscopy in May, however she cancel that procedure. Patient was going through a lot during the summer back in forth with her durable medical equipment technician and surgeon at [facility]. Patient is on Xarelto. Has appointment with her chief merchandising officer on Tuesday. Patient go for ultrasound with elastography to evaluate her liver or blood work. Patient was reminded to go as soon as she can and orders renewed in the computer. Patient reports significant acid reflux, admits to stress eating. Reports that she is not taking omeprazole. She takes it on as needed basis the same with famotidine. ? PFS Medical History Osteopenia of lumbar spine History of left breast cancer Current use of oil heaterman anticoagulation Retinal hemorrhage, bilateral Decreased renal function Elevated serum creatinine Lumbar back pain with radiculopathy affecting left lower extremity Vaginal pruritus On anticoagulant therapy On beta kemal at home Nasal sinus congestion Dyslipidemia Anxiety disorder Pruritic intertrigo Low back pain Paroxysmal atrial fibrillation HTN (hypertension) Surgical History History of cataract extraction History of lumpectomy of left breast Family History Father Enlarged heart Hyperlipidemia Mother Uterine cancer Maternal Aunt Breast cancer Brother Mental health disorder Sister Mental health disorder Sister No problems noted. Son No problems noted. Son No problems noted. Social History Household Members: Spouse Housing: House Are you a primary manager respiratory care to a significant other at home: No Do you presently have visiting nurse or other home services: No Alcohol intake: never Patient Tobacco Use Status: Never used Tobacco e-Cigarette/Vaping Use: Never Used Second Hand Smoke Exposure: No service: No Current occupational status: retired Cognitive needs: No Hearing needs: No Vision needs: Yes Review of Systems Const Denies weight gain and Denies weight loss ENT Reports no additional complaints, Denies dysphagia and Denies odynophagia Card Reports no additional complaints Resp Reports no additional complaints GI Denies abdominal pain, Denies belching, Denies melena, Reports bloating, Denies change in bowel habits, Reports constipation, Denies dysphagia, Denies excessive flatus, Denies dyspepsia, Reports heartburn, Denies diarrhea, Denies loose stools, Denies nausea, Denies odynophagia and Denies vomiting Reports no additional complaints Musc Reports no additional complaints Neuro Reports no additional complaints Psych Reports no additional complaints Endo Reports no additional complaints Physical Exam Vital Signs: Last Vital Signs Pulse 60 09/28/24 14:24 BP 152/76 H 09/28/24 14:24 Pulse Ox 98 09/28/24 14:24 Oxygen Delivery Method Room Air 09/28/24 14:24 Const General: healthy appearing and no acute distress Nutritional Appearance: obese Orientation/consciousness: patient oriented x3 Cardio Rate: regular rate GI Inspection: Yes normal to inspection, No distended and Yes obesity Palpation (GI): Soft to palpation, not firm, nontender and No hepatosplenomegaly present Auscultation: normal bowel sounds General: Yes no CVA tenderness Back/Spine/Pelvis Back: no CVA tenderness Skin General skin exam: elasticity normal, turgor normal and dry skin Neuro General: patient oriented x3 Psych Appearance: grossly normal Mental Status: mental status grossly normal Assessment & Plan Assessment & Plan (1) GERD (gastroesophageal reflux disease): Code(s): K21.9 - Gastro-esophageal reflux disease without esophagitis Qualifiers: Esophagitis presence: esophagitis presence not specified Qualified Code(s): K21.9 - Gastro-esophageal reflux disease without esophagitis (2) IBS (irritable bowel syndrome): Code(s): K58.9 - Irritable bowel syndrome, unspecified Qualifiers: Irritable bowel syndrome type: with constipation Qualified Code(s): K58.1 - Irritable bowel syndrome with constipation (3) Transaminitis: Code(s): R74.01 - Elevation of levels of liver transaminase levels (4) Constipation: Code(s): K59.00 - Constipation, unspecified Qualifiers: Constipation type: slow transit constipation Qualified Code(s): K59.01 - Slow transit constipation (5) Rectal bleed: Code(s): K62.5 - Hemorrhage of anus and rectum Plan Will book patient for colonoscopy and upper endoscopy. Message sent to surgical rn via tiger text. Patient will start taking omeprazole barium, avoid dietary triggers and late night snacking. Staying upright for minimum 3 hours after meals discussed with with patient. Patient can continue taking Colace 1-2 capsules daily. Continue Proctosol. Stressed the importance of good bowel prep and clear liquid diet. Patient will hold Xarelto for 48 hours before procedure. I will see her after the procedure, sooner on as needed basis. She is agreeable to this plan and verbalizes understanding of instructions. She was given the opportunity to ask questions and all questions answered. Thank you for allowing me to participate in her care Orders: Orders Liver Panel Today R74.01 - Elevation of levels of liver transaminase levels US abdomen fink w elastography Today K76.0 - Fatty (change of) liver, not elsewhere classified Medications: Changed From docusate sodium 100 mg PO DAILY 30 caps 3RF K59.00 - Constipation, un specified To docusate sodium 200 mg (2 x 100 mg) PO DAILY 60 caps 3RF K59.00 - Constipation, unspecified Coding Level of Care Code Est Pt Level 4 (72229) Complex EM visit Add On G2211 Diagnoses Gastroesophageal reflux disease, unspecified whether esophagitis present K21.9 Esophagitis presence: esophagitis presence not specified Irritable bowel syndrome with constipation K58.1 Irritable bowel syndrome type: with constipation Transaminitis R74.01 Slow transit constipation K59.01 Constipation type: slow transit constipation Rectal bleed K62.5 Time Spent (min) 40 Comment 25 minutes spent with patient and additional 15 minutes spent reviewing her records
== END 2024-09-28 16:16 | disposition home or self-care (01) ==
PROVIDERS: PCP Internal Medicine; Visit Provider Nurse Practitioner Family
DX: K21.9 Gastro-esophageal reflux disease without esophagitis (principal); K58.1 Irritable bowel syndrome with constipation; R74.01 Elevation of levels of liver transaminase levels; K59.01 Slow transit constipation; K62.5 Hemorrhage of anus and rectum
CPT/HCPCS: 99214; G2211

== ENCOUNTER → 2024-09-28 14:20 | Outpatient (BNVA) | payer MEDICARE, OTHER, SELFPAY | PROVIDERS: PCP Internal Medicine; Visit Provider Nurse Practitioner Family ==

== ENCOUNTER 2024-10-01 14:29 | Outpatient (AMB) | payer MEDICARE, OTHER, SELFPAY ==
[2024-10-01 14:37] VITALS: BP 130/78; PULSE 59
--- NOTE | 2024-10-01 14:37 | MHC.OFFVIS ---
Vital Signs 10/01/24 14:37 Height 5 ft 2 in BMI Reason not done Patient refused/unable BP 130/78 Blood Pressure Location Lt brachial Position Sitting Pulse 59 Intake Visit Reasons: 1 year fu Intake Note: 1 year follow-up with ekg feeling good Transformer Shop Supervisor Required: No Allergies bupropion [From Wellbutrin] Allergy (Unknown, Verified 09/28/24 14:25) burning sensation citalopram Allergy (Unknown, Verified 09/28/24 14:25) burning sensatin in skin Medication List - Last Reconciled 10/01/24 by Bob Anna MD amlodipine 5 mg PO DAILY cholecalciferol (vitamin D3) 25 mcg PO DAILY docusate sodium 200 mg (2 x 100 mg) PO DAILY famotidine (Pepcid) 20 mg PO DAILY PRN flecainide 50 mg PO BID 90 days hydrocortisone 2.5% (Proctosol HC) 1 appl [place] BID-QID PRN lorazepam 0.5 mg PO DAILY PRN mastectomy bra (bra, mastectomy) As directed metoprolol tartrate 50 mg PO BID omeprazole 20 mg PO DAILY Prosthesis, breast (Breast prosthesis) As directed rivaroxaban (Xarelto) 20 mg PO BEDTIME rosuvastatin 10 mg PO DAILY HPI Comments Details: Shellie comes for follow-up. Recently had hysteroscopy with biopsy. Was started on Xarelto right away and had some prolonged bleeding. Bleeding is finally getting better. She is concerned about having to undergo colonoscopy in near future. Denies any significant cardiac complaints. Denies any prolonged palpitation irregular heartbeat. No exertional chest pain or shortness of breath. No orthopnea, PND, leg edema. Takes all her medications. [facility] Medical History Osteopenia of lumbar spine History of left breast cancer Current use of intermodal owner operator truck driver anticoagulation Retinal hemorrhage, bilateral Decreased renal function Elevated serum creatinine Lumbar back pain with radiculopathy affecting left lower extremity Vaginal pruritus On anticoagulant therapy On beta kemal at home Nasal sinus congestion Dyslipidemia Anxiety disorder Pruritic intertrigo Low back pain Paroxysmal atrial fibrillation HTN (hypertension) Surgical History History of cataract extraction History of lumpectomy of left breast Family History Father Enlarged heart Hyperlipidemia Mother Uterine cancer Maternal Aunt Breast cancer Brother Mental health disorder Sister Mental health disorder Sister No problems noted. Son No problems noted. Son No problems noted. Social History Household Members: Spouse Housing: House Are you a primary lead care manager to a significant other at home: No Do you presently have visiting nurse or other home services: No Alcohol intake: never Patient Tobacco Use Status: Never used Tobacco e-Cigarette/Vaping Use: Never Used Second Hand Smoke Exposure: No service: No Current occupational status: retired Cognitive needs: No Hearing needs: No Vision needs: Yes Review of Systems Const Denies chills, Denies fatigue, Denies fever(s), Denies frequent falls, Denies weakness, Denies weight gain and Denies weight loss ENT Denies dizziness Card Denies chest pain, Denies leg edema, Denies lightheadedness, Denies palpitations, Denies dyspnea, Denies dyspnea on exertion, Denies orthopnea and Denies other (loss of consciousness) Resp Denies cough, Denies dyspnea and Denies dyspnea on exertion GI Denies hematochezia and Denies change in stool character Musc Denies abnormal gait, Denies muscle weakness, Denies numbness, Denies radiating pain into limb and Denies tingling Neuro Denies abnormal gait, Denies dizziness, Denies frequent falls, Denies numbness, Denies tingling and Denies weakness Endo Denies fatigue and Denies palpitations Physical Exam Vital Signs: Last Vital Signs Pulse 59 10/01/24 14:37 BP 130/78 10/01/24 14:37 Const General: cooperative, healthy appearing, comfortable, no acute distress, alert and awake Nutritional Appearance: obese Orientation/consciousness: patient oriented x3 Limitations: no limitations Neck Neck: Yes full ROM, Yes trachea midline, Yes supple and Yes no JVD Chest Chest palpation & inspection: normal inspection of the chest Resp Effort & Inspection: normal respiratory effort Auscultation: clear to auscultation bilaterally Cardio Jugular venous distension: no JVD Palpation: normal PMI Rate: regular rate Rhythm: regular rhythm Heart sounds: S1 normal heart sound present, S2 normal heart sound present and Other heart sounds present ( S4 present) Peripheral pulses: Peripheral pulses 2+ throughout GI Inspection: Yes normal to inspection Auscultation: normal bowel sounds Skin General skin exam: no rashes or lesions noted Neuro General: patient oriented x3 and no focal motor deficits Extrem General: Yes no clubbing, cyanosis or edema Psych Appearance: grossly normal Office Procedures EKG Details: EKG shows sinus bradycardia with first-degree AV block with poor R-wave progression from V2 V3 most likely due to lead placement [id number], Complete Assessment & Plan Assessment & Plan (1) Paroxysmal atrial fibrillation: Comment: FRANCHESKA guided cardioversion in December of 2015. Normal structure of the heart Foll'd by Dr. Anna Code(s): I48.0 - Paroxysmal atrial fibrillation Category: Medical Plan: Highly symptomatic paroxysmal atrial fibrillation which has remained stable and controlled on current flecainide therapy. She is very happy and has done very well with the same. We discussed about management of atrial fibrillation. Continue current rhythm control with flecainide and concomitant metoprolol therapy. Avoidance of stimulants was discussed. Additional flecainide as need be. Importance of full oral anticoagulation was discussed. Continue full oral anticoagulation, currently on Xarelto 20 mg daily. Semi annual renal function test should be discussed. Continue participate in regular physical activity as tolerated and participate in weight loss program which has shown to reduce recurrence of atrial fibrillation. (2) HTN (hypertension): Code(s): I10 - Essential (primary) hypertension Category: Medical Qualifiers: Hypertension type: primary hypertension Qualified Code(s): I10 - Essential (primary) hypertension Plan: Hypertension which is currently well optimized on current therapy. Importance of good blood pressure control was discussed. Continue current metoprolol and amlodipine therapy. Target goal blood pressure less than 130/84. Low-salt diet was discussed. Participate in regular physical activity. Follow up in the clinic in 6 months for EKG in 1 year with me. Thank you for allowing me to partake in his care Coding Level of Care Code Est Pt Level 4 (10330) Complex EM visit Add On G2211 Diagnoses Paroxysmal atrial fibrillation I48.0 Primary hypertension I10 Hypertension type: primary hypertension CPT Codes EKG - CPT: [id number], Complete ([id number])
== END 2024-10-01 15:10 | disposition home or self-care (01) ==
PROVIDERS: PCP Internal Medicine; Visit Provider Internal Medicine Cardiovascular Disease
DX: I48.0 Paroxysmal atrial fibrillation (principal); I10 Essential (primary) hypertension
CPT/HCPCS: 93010; 99214; G2211

== ENCOUNTER → 2024-10-01 14:29 | Outpatient (BNVA) | payer MEDICARE, OTHER, SELFPAY | PROVIDERS: PCP Internal Medicine; Visit Provider Internal Medicine Cardiovascular Disease | DX: I48.0 Paroxysmal atrial fibrillation (principal); I10 Essential (primary) hypertension | CPT/HCPCS: 93005; 99212 ==

== ENCOUNTER 2024-10-05 13:47 | Outpatient (REF) | payer MEDICARE, OTHER, SELFPAY ==
--- NOTE | ~2024-10-05 | MM_ITS ---
EXAMINATION: MM SCREENING DIGITAL BREAST TOMOSYNTHESIS, BILATERAL CLINICAL INFORMATION: Screening. Asymptomatic. COMPARISON: Mammography: Comparison is made with available priors TECHNIQUE: Digital breast mammography with tomosynthesis is performed in both the craniocaudal and mediolateral oblique views along with computer-aided detection (CAD). FINDINGS: There are scattered areas of fibroglandular density (ACR BI-RADS breast composition Category b). Left breast lumpectomy changes are stable. There are no significant masses, abnormal calcifications, or other abnormalities. MM/MM tomosynthesis screening BI IMPRESSION: No mammographic evidence of malignancy. ASSESSMENT: BI-RADS BI-RADS 2 - Benign Findings RECOMMENDATION: Routine annual mammography screening. 1 year F/U This examination should not preclude the clinical evaluation of a suspicious palpable abnormality. This patient's information was entered into a reminder system with a target due date for their next mammogram. Electronically signed by: Natalie Curiel DO 10/14/2024 10:00 AM [facility]
--- NOTE | ~2024-10-05 | MM_ITS ---
EXAMINATION: Dual-Energy X-ray Absorptiometry - Bone Density Study HISTORY: Estrogen deficiency TECHNIQUE: Applits Dual energy absorptiometry (DEXA) of the lumbar spine, total left hip, and femoral neck was performed. COMPARISON: Comparison is made with the prior examination dated 07/07/2018. FINDINGS: The bone mineral density of the lumbar spine is 1.052 with a T-score of -1.1, and a Z-score of 0.1. This represents a BMD change of 5.7% compared to the prior exam. This is statistically significant. The bone mineral density of the left total hip is 0.926 with a T-score of -0.7, and a Z-score of 0.7. This represents BMD change of -3.4% compared to the prior exam. This is not statistically significant. The bone mineral density of the left femoral neck is 0.881 with a T-score of -1.1, and a Z-score of 0.4. This represents BMD change of -2.3% compared to the prior exam. FRACTURE RISK: The FRAX index suggests a ten year probability of major osteoporotic fracture of 9.5%, and of hip fracture 1.5%. MM/XR DEXA axial skeleton IMPRESSION: Based on bone mineral density, the diagnosis is consistent with osteopenia. All bone density values are in grams per centimeter squared. At this facility, the least significant change in BMD with 95% confidence is 0.022 at the lumbar spine, 0.027 at the hip, and 0.023 at the distal 1/3 radius. Electronically signed by: Antony Hein MD 10/09/2024 10:10 AM [facility]
== END 2024-10-05 13:48 | disposition home or self-care (01) ==
LOC: HO.MAMMO 13:47
PROVIDERS: PCP Internal Medicine; Visit Provider Internal Medicine
DX: Z12.31 Encounter for screening mammogram for malignant neoplasm of breast (principal); M85.88 Other specified disorders of bone density and structure, other site
CPT/HCPCS: 77063; 77067; 77080

== ENCOUNTER → 2024-10-05 14:30 | Outpatient (BNV) | payer MEDICARE, OTHER, SELFPAY | PROVIDERS: PCP Internal Medicine; Visit Provider Radiology Diagnostic Radiology | DX: Z12.31 Encounter for screening mammogram for malignant neoplasm of breast (principal) | CPT/HCPCS: 77063; 77067 ==

== ENCOUNTER 2024-10-24 09:04 | Outpatient (REF) | payer MEDICARE, OTHER, SELFPAY ==
--- NOTE | ~2024-10-24 | US_ITS ---
EXAMINATION: US ABDOMEN LIMITED WITH LIVER ELASTOGRAPHY CLINICAL INFORMATION: Fatty change of liver, not elsewhere specified. COMPARISON: None. Correlation made with CT abdomen and pelvis 04/21/2022. TECHNIQUE: Real-time imaging of the abdominal viscera. Noninvasive ultrasound liver fibrosis assessment is performed using Celeste ElastPQ point quantification shear wave elastography (pSWE) with a 5 MHz transducer. Multiple elastography samples are obtained. Exam submitted for review 10/24/2024 9:04 AM CLINICAL RESEARCHER. FINDINGS: PANCREAS: The visualized pancreatic head and body are normal in appearance. The remainder of the pancreas is obscured from visualization by the overlying bowel gas. LIVER: Liver demonstrates normal size and contour. There is diffusely increased hepatic echogenicity. There is focal fatty sparing adjacent to the gallbladder fossa. No suspicious hepatic lesion. The right lobe measures 13.1 cm in length. The left lobe measures 9.7 cm in length. Hepatopedal portal flow. Shear wave elastography provides a median stiffness of 1.75 m/s (reference: normal median stiffness is 1.3 m/s or less). The IQR/median stiffness to assess sampling precision is 0.04 (reference: optimal IQR/median stiffness is under 0.15). GALLBLADDER: The gallbladder is physiologically distended without evidence of stones, sludge, polyps, wall thickening or pericholecystic fluid. COMMON BILE DUCT: Normal in caliber measuring 0.7 cm in diameter. RIGHT KIDNEY: No hydronephrosis. No renal calculi or focal parenchymal lesions. The kidney measures 10.6 cm in maximum dimension. FREE FLUID: None seen. US/US abdomen fink w elastography IMPRESSION: 1. Diffusely increased hepatic echogenicity likely representing a mixed of hepatocellular disease and fatty infiltration. No focal lesions seen. Focal fatty sparing abutting the gallbladder fossa. 2. Liver elastography: Measurements are suggestive of compensated advanced chroniic liver disease but need further test for confirmation. 3. Remainder of the examination is normal. REFERENCE: Society of Radiologists in Ultrasound Liver Stiffness Thresholds (2020): LIVER STIFFNESS THRESHOLDS: *Liver Stiffness equal or less than 1.3 m/s: High probability of being normal. *Liver Stiffness less than 1.7 m/s: In the absence of other known clinical signs, rules out compensated advanced chronic liver disease. *Liver Stiffness 1.7-2.1 m/s: Suggestive of compensated advanced chronic liver disease but need further test for confirmation. *Liver Stiffness over 2.1 m/s: Rules in compensated advanced chronic liver disease. *Liver Stiffness over 2.4 m/s: Suggestive of clinically significant portal hypertension. QUALITY OF DATA SET: *IQR/Median value equal or less than 0.15 implies a quality data set. *IQR/Median value over 0.15 implies a poor quality data set. SIGNIFICANT CHANGE FROM PRIOR EXAM: Significant change if liver stiffness measurement is 10% or greater from prior exam. OTHER CONSIDERATIONS: The stage of liver fibrosis may be overestimated in the setting of acute hepatitis, liver inflammation, elevated liver function tests, hepatic vascular congestion, obstructive cholestasis, non-fasting state, and infiltrative diseases such as amyloidosis and lymphoma. In some patients with NAFLD, the liver stiffness thresholds for compensated advanced chronic liver disease may be lower. In causes other than viral hepatitis and NAFLD, liver stiffness thresholds are not well established. Electronically signed by: Kin Edouard MD 10/24/2024 10:05 AM [facility]
--- OUTSIDE RECORDS SUMMARY | 2024-10-24 09:28 | XMS_ITS | Clinical Summary ---
Author Organization [facility] Address [address] [place] [address] Phone Care Team Providers Care Vamper Name Role Phone Ayaka Umana MD Primary Care Provider [phone] Allergies No known active allergies Medications calcitriol (ROCALTROL) 0.25 MCG capsule Take 0.25 mcg by mouth 1 (one) time each day Active famotidine (PEPCID) 20 MG tablet Take 20 mg by mouth in the morning and 20 mg in the evening. Active fluticasone (FLONASE) 50 MCG/ACT nasal spray Administer 1 spray into each nostril 1 (one) time each day Active LORazepam (ATIVAN) 0.5 MG tablet Take 0.5 mg by mouth every 6 (six) hours if needed for anxiety Active metoprolol tartrate (LOPRESSOR) 50 MG tablet Take 50 mg by mouth in the morning and 50 mg in the evening. Active rivaroxaban (XARELTO) 20 MG tablet Take 20 mg by mouth 1 (one) time each day with dinner Active atorvastatin (LIPITOR) 10 MG tablet Take 10 mg by mouth 1 (one) time each day Active flecainide (TAMBOCOR) 50 MG tablet Take 50 mg by mouth in the morning and 50 mg in the evening. Active amLODIPine (NORVASC) 5 MG tablet Take 1 tablet (5 mg total) by mouth 1 (one) time each day 90 tablet 3 3 Active Active Problems Problem Noted Date Diagnosed Date Stage 3a chronic kidney disease 06/28/2023 Essential (primary) hypertension 06/28/2023 Family History Medical History Relation Comments Heart disease Father Cancer Mother Relation Status Comments Father Mother Social History Tobacco Use Types Packs/Day Years Used Date Smoking Tobacco: Never Smokeless Tobacco: Never Tobacco Cessation:Counseling Given: Not Answered Alcohol Use Standard Drinks/Week Comments Never 0 (1 standard drink = 0.6 oz pur e alcohol) Comments Unknown Sex and Gender Information Value Date Recorded Sex Assigned at Not on file Legal Sex Female 4:59 PM EST Gender Identity Not on file Sexual Orientation Not on file Last Filed Vital Signs Vital Sign Reading Time Taken Comments Blood Pressure 130/70 06/28/2023 1:50 PM EDT Pulse 72 06/28/2023 1:50 PM EDT Temperature - - Respiratory Rate - - Oxygen Saturation - - Inhaled Oxygen Concentration - - Weight 87.2 kg (192 lb 3.2 oz) 06/28/2023 1:50 P M EDT Height - - Body Mass Index - - Plan of Treatment Health Maintenance Due Date Last Done Comments Breast Cancer Screening 1950 Pneumococcal Vaccine: 65+ Ye ars (1 of 2 - PCV) 1955 Colorectal Cancer Screening: Annual FOBT 1998 Colorectal Cancer Screening: Colonoscopy 1998 Colorectal Cancer Screening: Sigmoidoscopy 1998 Influenza Vaccine (#1) 2024 Hepatitis B Vaccine Aged Out No longe r eligible based on patient's age to complete this topic Insurance MEDICARE AETNA MEDICARE AET Care Teams Vamper Relationship Specialty Start Date End Date Ayaka Umana MD [facility] [place] [place] [address] PCP - General Internal Medicine 06/28/23
== END 2024-10-24 09:05 | disposition home or self-care (01) ==
LOC: HO.US 09:04
PROVIDERS: PCP Internal Medicine; Visit Provider Nurse Practitioner Family
DX: K76.0 Fatty (change of) liver, not elsewhere classified (principal)
CPT/HCPCS: 76705; 76981

== ENCOUNTER → 2024-10-24 09:09 | Outpatient (BNV) | payer MEDICARE, OTHER, SELFPAY | PROVIDERS: PCP Internal Medicine; Visit Provider Radiology Diagnostic Radiology | DX: K76.0 Fatty (change of) liver, not elsewhere classified (principal) | CPT/HCPCS: 76705 ==

== ENCOUNTER 2024-10-26 10:36 | Outpatient (REF) | payer MEDICARE, OTHER, SELFPAY ==
--- OUTSIDE RECORDS SUMMARY | 2024-10-26 12:03 | XMS_ITS | Clinical Summary ---
Author Organization [facility] Address [address] [place] [address] Phone Care Team Providers Care Biomedical Engineering Technologist Name Role Phone Ayaka Umana MD Primary Care Provider +1- [phone] Allergies No known active allergies Medications calcitriol [...] Insurance MEDICARE AETNA MEDICARE AET Care Teams Biomedical Engineering Technologist Relationship Specialty Start Date End Date Ayaka Umana MD [facility] [place] [address] PCP - General Internal Medicine 06/28/23
[2024-10-26 14:49] LABS: Alanine Aminotransferase 33 U/L (0-31); Albumin Level 3.7 g/dL (3.5-5.0); Alkaline Phosphatase 63 U/L (39-117); Aspartate Amino Transferase 46 U/L (5-31); Bilirubin Direct 0.2 mg/dL (0.0-0.5); Bilirubin Total 0.5 mg/dL (0.0-1.0); Cholesterol 156 mg/dL (<200); HDL Cholesterol 57 mg/dL (>40); LDL Cholesterol Calculated 76 mg/dL (<100); Total Protein 7.8 g/dL (6.5-8.0); Triglycerides 118 mg/dL (<150)
[2024-10-26 15:11] LABS: Vitamin D 25-OH Total 38.6 ng/mL (>30)
== END 2024-10-26 10:37 | disposition home or self-care (01) ==
LOC: HO.HMGCLDS 10:36
PROVIDERS: PCP Internal Medicine; Referring Provider Nurse Practitioner Family; Visit Provider Internal Medicine
DX: Z00.01 Encounter for general adult medical examination with abnormal findings (principal); Z13.220 Encounter for screening for lipoid disorders; Z78.0 Asymptomatic menopausal state; R74.01 Elevation of levels of liver transaminase levels; Z00.00 Encounter for general adult medical examination without abnormal findings
CPT/HCPCS: 36415; 80061; 80076; 82306

== ENCOUNTER 2024-11-07 14:03 | Outpatient (REF) | payer MEDICARE, SELFPAY ==
--- OUTSIDE RECORDS SUMMARY | 2024-11-07 15:23 | XMS_ITS | Clinical Summary ---
Author Organization [facility] Address [address] [place] [address] Phone Care Team Providers Care Wardrobe Manager Name Role Phone Ayaka Umana MD Primary Care Provider +1- [phone] Allergies No known active allergies Medications calcitriol [...] Insurance MEDICARE AETNA MEDICARE AET Care Teams Wardrobe Manager Relationship Specialty Start Date End Date Ayaka Umana [place] [address] PCP - General Internal Medicine 06/28/23
[2024-11-16 01:39] LABS: FIB-ALT 35 U/L (6-29); FIB-Alpha-2-Macroglobulin 252 mg/dL (106-279); FIB-Apolipoprotein A1 183 mg/dL (101-198); FIB-GGT 36 U/L (3-65); FIB-Haptoglobin 156 mg/dL (43-212); FIB-Total Bilirubin 0.3 mg/dL (0.2-1.2); Liver Fibrosis Score 0.23; Liver Fibrosis Stage F0-F1; Nec Inflam Act Grade A0; Nec Inflam Act Score 0.17; Reference ID 5333806
== END 2024-11-07 14:04 | disposition home or self-care (01) ==
LOC: HO.HMGCLDS 14:03
PROVIDERS: PCP Internal Medicine; Visit Provider Nurse Practitioner Family
DX: K76.0 Fatty (change of) liver, not elsewhere classified (principal)
CPT/HCPCS: 36415; 81596

== ENCOUNTER 2024-12-03 14:05 | Outpatient (REF) | payer MEDICARE, SELFPAY ==
[2024-12-03 16:30] LABS: Anion Gap 11 (12-20); Blood Urea Nitrogen 15 mg/dL (9-16); Carbon Dioxide 26 mmol/L (22-29); Chloride 105 mmol/L (96-108); Estimated Glomerular Filt Rate 51; Potassium 3.8 mmol/L (3.3-5.1); Sodium 138 mmol/L (135-145)
--- OUTSIDE RECORDS SUMMARY | 2024-12-03 16:54 | XMS_ITS | Clinical Summary ---
Author Organization [facility] Address [address] [place] [address] Phone Care Team Providers Care Recordak Operator Name Role Phone Ayaka Umana MD Primary Care Provider +1- [phone] Allergies No known active allergies Medications calcitriol [...] (one) time each day 90 tablet 3 Active Active Problems Problem Noted Date [...] Insurance MEDICARE AETNA MEDICARE AET Care Teams Recordak Operator Relationship Specialty Start Date End Date Ayaka Umana [place] [address] PCP - General Internal Medicine 06/28/23
== END 2024-12-03 14:06 | disposition home or self-care (01) ==
LOC: HO.HMGCLDS 14:05
PROVIDERS: PCP Internal Medicine; Visit Provider Internal Medicine Nephrology
DX: I70.1 Atherosclerosis of renal artery (principal); N18.2 Chronic kidney disease, stage 2 (mild); I10 Essential (primary) hypertension
CPT/HCPCS: 36415; 80051; 82565; 84520

== ENCOUNTER 2024-12-05 13:53 | Outpatient (AMB) | payer MEDICARE, OTHER, SELFPAY ==
--- NOTE | 2024-12-05 14:05 | HO.NEPHOV_ITS ---
Vital Signs 12/05/24 14:06 Height 5 ft 2 in BMI Reason not done Patient refused/unable BP 134/70 Blood Pressure Location Rt brachial Position Sitting Pulse 61 Pulse Source Pulse Oximeter Pulse Oximetry (%) 98 Oxygen Delivery Method Room Air Intake Visit Reasons: 6mon follow up-Conf Parts Counter Representative Required: No Accompanied by: Self / Same As Patient Allergies bupropion [From Wellbutrin] Allergy (Unknown, Verified 12/05/24 14:05) burning sensation citalopram Allergy (Unknown, Verified 12/05/24 14:05) burning sensatin in skin HPI Comments Details: I had the privilege of seeing Shellie in follow up for her mild CKD on a backdrop of long standing hypertension. She had not been monitoring her BP closely at home until recently but has been compliant with metoprolol. She has history of paroxysmal atrial fibrillation on xarelto . She was recently diagnosed with retinal hemorrhages. She is not a diabetic. She denies Carotid stenosis, CAD, CHF, PAD, MITUL, CVA, recurrent UTI's, renal stones, hearing deficits, M/S hematuria, joint swellings, photosensitivity, skin rashes, epistaxis, hemoptysis, hemetemesis or melena. She denies new bone or back pain. She doesn't take excess NSAID's. 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 She has no symptoms of hyperviscosity. She has remote H/O breast cancer. She had CT abdomen which showed some abnormal thickening and is being investigated. She is not known to have proteinuria. Her BP was not well controlled on metoprolol and amlodipine was added with better control. She denies being on ACEI/ARB. Her last serum creatinine has been stable [facility] Medical History Osteopenia of lumbar spine History of left breast cancer Current use of long distance operator anticoagulation Retinal hemorrhage, bilateral Decreased renal function Elevated serum creatinine Lumbar back pain with radiculopathy affecting left lower extremity Vaginal pruritus On anticoagulant therapy On beta kemal at home Nasal sinus congestion Dyslipidemia Anxiety disorder Pruritic intertrigo Low back pain Paroxysmal atrial fibrillation HTN (hypertension) Surgical History History of cataract extraction History of lumpectomy of left breast Family History Father Enlarged heart Hyperlipidemia Mother Uterine cancer Maternal Aunt Breast cancer Brother Mental health disorder Sister Mental health disorder Sister No problems noted. Son No problems noted. Son No problems noted. Social History Household Members: Spouse Housing: House Are you a primary pharmacist critical care to a significant other at home: No Do you presently have visiting nurse or other home services: No Alcohol intake: never Patient Tobacco Use Status: Never used Tobacco e-Cigarette/Vaping Use: Never Used Second Hand Smoke Exposure: No service: No Current occupational status: retired Cognitive needs: No Hearing needs: No Vision needs: Yes Review of Systems Const All systems reviewed & are unremarkable except as noted in HPI and below Physical Exam Vital Signs: Last Vital Signs Pulse 61 12/05/24 14:06 BP 134/70 12/05/24 14:06 Pulse Ox 98 12/05/24 14:06 Oxygen Delivery Method Room Air 12/05/24 14:06 Const General: comfortable and no acute distress Orientation/consciousness: patient oriented x3 HEENT Head: Yes normocephalic Mouth: Normal oral and palatal mucosa present Eyes EOM: EOMs intact bilaterally Neck Neck: Yes supple Resp Auscultation: clear to auscultation bilaterally Cardio Jugular venous distension: no JVD Rate: regular rate GI Palpation (GI): Soft to palpation Auscultation: normal bowel sounds General: Yes no CVA tenderness Back/Spine/Pelvis Back: no CVA tenderness Skin General skin exam: no rashes or lesions noted Neuro General: patient oriented x3 and moves all extremities Extrem General: Yes no pedal edema Results Reviewed Nephrology Results: Sodium 138 mmol/L (135-145) 12/03/24 Potassium 3.8 mmol/L (3.3-5.1) 12/03/24 Chloride 105 mmol/L (96-108) 12/03/24 Carbon Dioxide 26 mmol/L (22-29) 12/03/24 BUN 15 mg/dL (9-16) 12/03/24 Creatinine 1.05 mg/dL (0.5-1.4) 12/03/24 Assessment & Plan Assessment & Plan (1) Renal artery stenosis: Code(s): I70.1 - Atherosclerosis of renal artery Category: Medical (2) CKD (chronic kidney disease) stage 2, GFR 60-89 ml/min: Code(s): N18.2 - Chronic kidney disease, stage 2 (mild) Category: Medical Plan 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 Her serum creatinine is fairly stable. She has no blood or protein in the urine. Doppler of renal arteries showed hemodynamically significant right renal artery stenosis. Her 24 hour urine showed GFR of close to 80 mls/mt. She was found to have high IgM and had bone marrow biopsy. She has no anemia, hypercalcemia, pancytopenia or rising serum creatinine. She will be a candidate for ACEI/ARB in the future. I did not make any medication changes today. All her and her husbands questions were answered. Orders: Orders Blood Urea Nitrogen 9 Months I70.1 - Atherosclerosis of renal artery, N18.2 - Chronic kidney disease, stage 2 (mild) Creatinine 9 Months I70.1 - Atherosclerosis of renal artery, N18.2 - Chronic kidney disease, stage 2 (mild) Electrolytes 9 Months I70.1 - Atherosclerosis of renal artery, N18.2 - Chronic kidney disease, stage 2 (mild) Protein Creatinine Ratio, Ur 9 Months I70.1 - Atherosclerosis of renal artery, N18.2 - Chronic kidney disease, stage 2 (mild) Coding Level of Care Code Est Pt Level 4 (37055) Diagnoses Renal artery stenosis I70.1 CKD (chronic kidney disease) stage 2, GFR 60-89 ml/min N18.2
[2024-12-05 14:06] VITALS: BP 134/70; PULSE 61; O2SAT 98
--- OUTSIDE RECORDS SUMMARY | 2024-12-05 16:38 | XMS_ITS | Clinical Summary ---
Author Organization [facility] Address [address] [place] [address] Phone Care Team Providers Care Licensed Occupational Therapist Name Role Phone Ayaka Umana MD Primary Care Provider +1- [phone] Allergies No known active allergies Medications calcitriol [...] Insurance MEDICARE AETNA MEDICARE AET Care Teams Licensed Occupational Therapist Relationship Specialty Start Date End Date Ayaka Umana MD [facility] [place] [address] PCP - General Internal Medicine 06/28/23
== END 2024-12-05 14:30 | disposition home or self-care (01) ==
PROVIDERS: PCP Internal Medicine; Visit Provider Internal Medicine Nephrology
DX: I70.1 Atherosclerosis of renal artery (principal); N18.2 Chronic kidney disease, stage 2 (mild)
CPT/HCPCS: 99214

== ENCOUNTER → 2024-12-05 13:53 | Outpatient (BNVA) | payer MEDICARE, SELFPAY | PROVIDERS: PCP Internal Medicine; Visit Provider Internal Medicine Nephrology | DX: I12.9 Hypertensive chronic kidney disease with stage 1 through stage 4 chronic kidney disease, or unspecified chronic kidney disease (principal); I70.1 Atherosclerosis of renal artery; N18.2 Chronic kidney disease, stage 2 (mild) | CPT/HCPCS: 99212 ==

== ENCOUNTER 2025-01-14 09:37 | Day surgery (SDC) | payer MEDICARE, SELFPAY ==
--- OUTSIDE RECORDS SUMMARY | 2024-11-29 07:34 | XMS_ITS | Clinical Summary ---
Author Organization [facility] Address [address] [place] [address] Phone Care Team Providers Care Business Services Administrator Name Role Phone Ayaka Umana MD Primary Care Provider +1- [phone] Allergies No known active allergies Medications calcitriol [...] Insurance MEDICARE AETNA MEDICARE AET Care Teams Business Services Administrator Relationship Specialty Start Date End Date Ayaka Umana [place] [address] PCP - General Internal Medicine 06/28/23
[2025-01-10 13:00] VITALS: BMI 33.8
--- NOTE | 2025-01-14 09:39 | P.HPSUR_ITS ---
Pre-Procedural Eval Section A - 24 Hr Update-Section A only Date of Service: 01/14/25 The patient is an INPATIENT: No The patient has been examined within 24 hours of the surgical procedure. The History & Physical has been completed within 30 days and I have reviewed it.: No Section B - Complete if H&P > 30 days Chief Complaint: screening,gerd, Relevant Family History (Specify if Yes): No Relevant Social History: None Present Medications: see Short Stay Collaborative assessment Medical History: Significant History (Osteopenia of lumbar spine History of left breast cancer Current use of retirement anticoagulation Retinal hemorrhage, bilateral Decreased renal function Elevated serum creatinine Lumbar back pain with radiculopathy affecting left lower extremity Vaginal pruritus) History of Previous Operations: Relevant previous surgery/procedure and date(s) (History of cataract extraction History of lumpectomy of left breast) Allergies: Allergies Allergy/AdvReac Type Severity Reaction Status Date / Time bupropion [From Wellbutrin] Allergy Intermediate burning Verified 01/10/25 12:52 sensation citalopram Allergy Intermediate burning Verified 01/10/25 12:52 sensatin in skin Review of Systems Sugical H&P ROS: Negative: Constitution, Cardiovascular, Respiratory and Gastrointestinal Exam Surgical H&P Exam: Normal: Heart, Normal: Lungs, Normal: Extremities and Normal: Abdomen Plan Diagnosis/Plan: Unchanged I have reviewed the history and physical and performed a pertinent physical examination on my patient. No changes have occurred unless specified. Time Spent With Patient Time: Total time managing care of this patient today ____ minutes.
[2025-01-14 10:18] VITALS: BP 123/51; PULSE 67; RESP 16; TEMP 37.2; O2SAT 98; BMI 34.4
[2025-01-14] MEDS: Lactated Ringers 1,000 ML 50 ML IVCONT (10:35)
--- NOTE | 2025-01-14 10:36 | P.CONAN_ITS ---
Documented by User: Yas Otoole MD 01/14/25 11:42 HPI - Anesthesia Eval Consult details Narrative: 74 yo female patient for EGD, Colonoscopy PMF Active Problems Active Problems: All Active Problems Osteopenia of lumbar spine (Acute) Renal artery stenosis (Acute) CKD (chronic kidney disease) stage 2, GFR 60-89 ml/min (Acute) Current use of rn long term care anticoagulation (Acute) Lumbar back pain with radiculopathy affecting left lower extremity (Acute) Dyslipidemia (Acute) Anxiety disorder (Acute) Paroxysmal atrial fibrillation (Acute). NSR today HTN (hypertension) (Acute) Denies YRN GERD Past Medical History Medical History Osteopenia of lumbar spine History of left breast cancer Current use of senior living anticoagulation Retinal hemorrhage, bilateral Decreased renal function Elevated serum creatinine Lumbar back pain with radiculopathy affecting left lower extremity Vaginal pruritus On anticoagulant therapy On beta kemal at home Nasal sinus congestion Dyslipidemia Anxiety disorder Pruritic intertrigo Low back pain Paroxysmal atrial fibrillation HTN (hypertension) Family History Family History Father Enlarged heart Hyperlipidemia Mother Uterine cancer Maternal Aunt Breast cancer Brother Mental health disorder Sister Mental health disorder Sister No problems noted. Son No problems noted. Son No problems noted. Family history of problems with anesthesia: No Surgical History Surgical History History of cataract extraction History of lumpectomy of left breast History of Problems with Anesthesia: No Social History Social History Household Members: Spouse Housing: House Are you a primary manager urgent care to a significant other at home: No Do you presently have visiting nurse or other home services: No Alcohol intake: never Patient Tobacco Use Status: Never used Tobacco e-Cigarette/Vaping Use: Never Used Second Hand Smoke Exposure: No Use of substances other than those prescribed or required for medical reasons: No Are you DNR?: No Advance Directives: No Advance Directives Information Provided: Yes service: No Current occupational status: retired Cognitive needs: No Hearing needs: No Vision needs: Yes Meds Allergies Allergy/AdvReac Type Severity Reaction Status Date / Time bupropion [From Wellbutrin] Allergy Intermediate burning Verified 01/14/25 10:13 sensation citalopram Allergy Intermediate burning Verified 01/14/25 10:13 sensatin in skin Home Medications ?Medication ?Instructions ?Recorded ?Confirmed ?Last Taken ?Type cholecalciferol (vitamin D3) 25 25 mcg PO DAILY 08/12/20 01/14/25 Unknown History mcg (1,000 unit) capsule Exam Airway Mallampati Class: III (Receding chin) TM Dist: >3cm Neck ROM: Full Loose/Missing/Broken Teeth: Yes (Missing molars. Denies broken or loose teeth) Heart: RRR Lungs: CTAB Assessment and Plan Assessment Anesthesia Assessment: Anesthesia Plan Discussed and Chart Reviewed Final Anesthetic Review Family History of Problems with Anesthesia: No History of Problems with Anesthesia: No NPO: Yes ASA Class: III Final Preanesthetic Review: No Changes in Pt Med Stat, Meds/Allgs Chart Reviewed, Consent Obtained/Reviewed and Anes Risks/Benef Reviewed Patient Risk: Intermediate Procedure Risk: Low Assessment/Block/Sedation in SS: Assess/Block/Sedation-SS Anesthetic Plan Anesthetic Plan: TIVA Disposition: Standard PACU Documented by User: Sapphire Angulo MD [facility] Active Problems Active Problems: All Active Problems Osteopenia of lumbar spine (Acute) Renal artery stenosis (Acute) CKD (chronic kidney disease) stage 2, GFR 60-89 ml/min (Acute) Current use of rn long term care anticoagulation (Acute) Lumbar back pain with radiculopathy affecting left lower extremity (Acute) Dyslipidemia (Acute) Anxiety disorder (Acute) Paroxysmal atrial fibrillation (Acute) HTN (hypertension) (Acute) Past Medical History Medical History Osteopenia of lumbar spine History of left breast cancer Current use of senior living anticoagulation Retinal hemorrhage, bilateral Decreased renal function Elevated serum creatinine Lumbar back pain with radiculopathy affecting left lower extremity Vaginal pruritus On anticoagulant therapy On beta kemal at home Nasal sinus congestion Dyslipidemia Anxiety disorder Pruritic intertrigo Low back pain Paroxysmal atrial fibrillation HTN (hypertension) Family History Family History Father Enlarged heart Hyperlipidemia Mother Uterine cancer Maternal Aunt Breast cancer Brother Mental health disorder Sister Mental health disorder Sister No problems noted. Son No problems noted. Son No problems noted. Family history of problems with anesthesia: No Surgical History Surgical History History of cataract extraction History of lumpectomy of left breast History of Problems with Anesthesia: No Social History Social History Household Members: Spouse Housing: House Are you a primary manager urgent care to a significant other at home: No Do you presently have visiting nurse or other home services: No Alcohol intake: never Patient Tobacco Use Status: Never used Tobacco e-Cigarette/Vaping Use: Never Used Second Hand Smoke Exposure: No Use of substances other than those prescribed or required for medical reasons: No Are you DNR?: No Advance Directives: No Advance Directives Information Provided: Yes service: No Current occupational status: retired Cognitive needs: No Hearing needs: No Vision needs: Yes Meds Allergies Allergy/AdvReac Type Severity Reaction Status Date / Time bupropion [From Wellbutrin] Allergy Intermediate burning Verified 01/14/25 10:13 sensation citalopram Allergy Intermediate burning Verified 01/14/25 10:13 sensatin in skin Active Medications: Current Medications Lactated Ringer's (Lr) 1,000 mls @ 50 mls/hr IVCONT .Q20H ANDRÉS Last Admin: 01/14/25 10:35 Dose: 50 mls/hr Home Medications ?Medication ?Instructions ?Recorded ?Confirmed ?Last Taken ?Type cholecalciferol (vitamin D3) 25 25 mcg PO DAILY 08/12/20 01/14/25 Unknown History mcg (1,000 unit) capsule Exam Height,Weight and Vital Signs: Height 5 ft 2 in Weight 85.4 kg Last Vital Signs Temp 98.9 F 01/14/25 10:18 Pulse 67 01/14/25 10:18 Resp 16 01/14/25 10:18 BP 123/51 L 01/14/25 10:18 Pulse Ox 98 01/14/25 10:18 O2 Del Method Room Air 01/14/25 10:18 Assessment and Plan Final Anesthetic Review Family History of Problems with Anesthesia: No History of Problems with Anesthesia: No
--- NOTE | 2025-01-14 11:41 | P.OPN-COLO_ITS ---
Colonoscopy Operative Note Operative Note Date of Service: 01/14/25 Narrative: FLEXIBLE TRANSORAL UPPER GASTROINTESTINAL ENDOSCOPY WITH BIOPSIES AND COLONOSCOPY TILL CECUM WITH BIOPSIES Pre-op diagnosis: Colon cancer screening, constipation, rectal bleeding, GERD, dyspepsia, abdominal bloating Post-op diagnosis: GERD, Hiatal hernia, Gastritis, gastric polyps Colon Polyps, Diverticulosis, hemorrhoids Endoscopist:? Fermin Herrera MD Anesthesia:?MAC UPPER ENDOSCOPY Consent: Indications for the procedure and potential complications of bleeding, perforation, reaction to medications and missed diagnosis were discussed with the patient and informed consent was obtained. Instrument: Olympus GIF H 190 mid size upper endoscope Monitoring: Vital signs and clinical assessment, continuous EKG monitoring, Pulse oximetry, Carbon Dioxide monitoring and blood pressure monitoring were done throughout the procedure. Procedure: The patient was placed in the left lateral decubitis position and pre-procedure medications were administered and a bite block was placed. The endoscope was inserted into the mouth and advanced under direct vision to the third part of duodenum. A careful inspection was made as the upper endoscope was withdrawn including a retroflexed examination of the proximal stomach; Findings and interventions are described below. Findings: Larynx: Normal Esophagus: GE junction at 32 cms, medium sized hiatal hernia 32 to 36 cms. A non obstructing Schatzki's ring at GE junction. No esophagitis or Walsh's. Stomach: A few 4-10 mm benign appearing polyps in the gastric body - biopsied. Moderate diffuse gastric erythema - biopsies were obtained from the antrum. Grade 2 flap valve on retroflexed examination of the cardia. Duodenum: Normal bulb and descending duodenum Biopsies were obtained from descending duodenum to check for celiac sprue Intervention: Biopsies as noted above COLONOSCOPY PROCEDURE NOTE Instrument: Olympus PCF H 190 L variable stiffness pediatric colonoscope Monitoring: Vital signs and clinical assessment, intermittent blood pressure monitoring, continuous EKG monitoring, Pulse oximetry and Carbon Dioxide monitoring were done throughout the procedure. Please see anesthesia flowsheet. Colon withdrawl time was 14 minutes. Procedure: The patient was placed in the left lateral decubitis position and pre-procedure medications were administered. After a digital rectal examination of the ano-rectum, the video colonoscope was inserted into the rectum and advanced through the colon to the cecum. The colonoscope was slowly withdrawn in a retrograde panoramic fashion and the colon mucosa was carefully examined including a retroflexed view of the rectum. Findings and interventions are described below. Procedure Difficulty: without difficulty Findings: Terminal Ileum: Not evaluated Cecum: Normal Ascending Colon: Normal Transverse Colon: Normal Descending Colon: Moderate diverticulosis Sigmoid Colon: A 6-7 mm diminutive appearing polyp - removed with a cold biopsy. Moderate diverticulosis Rectum: Normal Ano-rectum: Moderate internal hemorrhoids and lax anal sphincter on rectal exam Colon preparation: Good after some irrigation. [place] Bowel Preparation Scale Right colon; 2 Transverse colon: 2 Left colon; 2 (0 = Unprepared colon segment with mucosa not seen due to solid stool that cannot be cleared. 1 = Portion of mucosa of the colon segment seen, but other areas of the colon segment not well seen due to staining, residual stool and/or opaque liquid. 2 = Minor amount of residual staining, small fragments of stool and/or opaque liquid, but mucosa of colon segment seen well. 3 = Entire mucosa of colon segment seen well with no residual staining, small fragments of stool or opaque liquid) Impression and Post Procedure Diagnosis: Endoscopy Findings: ESOPHAGUS: Medium sized hiatal hernia and a non obstructing Schatzki's ring at GE junction. STOMACH: A few benign appearing polyps in the gastric body - biopsied. Moderate diffuse gastric erythema - biopsies were obtained from the antrum. DUODENUM: Normal - biopsied to check for celiac sprue Colonoscopy Findings: One small polyp was removed Moderate diverticulosis seen in the left colon Moderate hemorrhoids on retroflexed exam. Plan: Pt has a FU appointment on 01/29/25 with Vandana Bush NP Repeat Colonoscopy not indicated due to advanced age. A summary of above findings and relevant handouts were given to the patient. BIOPSIES SHOWED: A. Small bowel, biopsy: Small bowel mucosa with preserved villi and no specific change; no evidence of celiac-sprue. B. Gastric antrum, biopsy: Gastric antral mucosa with reactive changes and minimal chronic inactive gastritis; negative for H. pylori, intestinal metaplasia and dysplasia. C. Gastric polyp: Fundic gland polyp with minimal chronic inactive inflammation; negative for H.pylori, intestinal metaplasia and dysplasia. D. Colon, sigmoid, polyp: Colonic mucosa with no specific change; no adenomatous dysplasia seen. Letter sent to the patient with biopsy results
[2025-01-14 12:30] VITALS: BP 103/47; PULSE 56; RESP 18; TEMP 36.1; O2SAT 98
[2025-01-14 12:45] VITALS: BP 128/59; PULSE 56; RESP 16; TEMP 36.1; O2SAT 95
== END 2025-01-14 13:07 | disposition home or self-care (01) ==
PROVIDERS: PCP Internal Medicine; Visit Provider Internal Medicine Gastroenterology
PROC: (CPT 45380; principal; 2025-01-14 11:20)
DX: Z12.11 Encounter for screening for malignant neoplasm of colon (principal); K57.30 Diverticulosis of large intestine without perforation or abscess without bleeding; K64.8 Other hemorrhoids; K62.4 Stenosis of anus and rectum; K31.7 Polyp of stomach and duodenum; K22.2 Esophageal obstruction; K29.60 Other gastritis without bleeding; K44.9 Diaphragmatic hernia without obstruction or gangrene; K21.9 Gastro-esophageal reflux disease without esophagitis; I10 Essential (primary) hypertension; E78.5 Hyperlipidemia, unspecified; I48.0 Paroxysmal atrial fibrillation; K76.0 Fatty (change of) liver, not elsewhere classified; Z79.899 Other long term (current) drug therapy; Z79.01 Long term (current) use of anticoagulants; Z79.02 Long term (current) use of antithrombotics/antiplatelets
CPT/HCPCS: 45380; 43239; 88305; 88342; J2003; J2704

== ENCOUNTER → 2025-01-14 09:37 | Outpatient (BNV) | payer MEDICARE, SELFPAY | PROVIDERS: PCP Internal Medicine; Visit Provider Internal Medicine Gastroenterology | DX: Z12.11 Encounter for screening for malignant neoplasm of colon (principal); K63.5 Polyp of colon; K22.2 Esophageal obstruction; K21.9 Gastro-esophageal reflux disease without esophagitis; K31.7 Polyp of stomach and duodenum; K29.70 Gastritis, unspecified, without bleeding; K57.30 Diverticulosis of large intestine without perforation or abscess without bleeding; K64.8 Other hemorrhoids | CPT/HCPCS: 43239; 45380 ==

== ENCOUNTER 2025-01-29 12:06 | Outpatient (AMB) | payer OTHER, SELFPAY ==
[2025-01-29 12:16] VITALS: BP 134/60; PULSE 68; O2SAT 98; BMI 34.4
--- NOTE | 2025-01-29 12:16 | A.OFFVIS_ITS ---
Vital Signs 01/29/25 12:16 Height 5 ft 2 in Weight 188 lb BMI 34.4 BP 134/60 Blood Pressure Location Rt brachial Position Sitting Pulse 68 Pulse Source Pulse Oximeter Pulse Oximetry (%) 98 Oxygen Delivery Method Room Air Intake Visit Reasons: S/P Double Javier Intake Note: ESTABLISHED PATIENT for s/p duo w/ RM. CC; Pt denies any GI sx or concerns at this time. Pt is looking only to discuss their results. Regional Airline Pilot Required: No Accompanied by: Self / Same As Patient Allergies bupropion [From Wellbutrin] Allergy (Intermediate, Verified 01/29/25 12:19) burning sensation citalopram Allergy (Intermediate, Verified 01/29/25 12:19) burning sensatin in skin HPI HPI S/P Double Javier: Details: LAST VISIT GERD (gastroesophageal reflux disease) IBS (irritable bowel syndrome) Transaminitis Constipation Rectal bleed Plan Will book patient for colonoscopy and upper endoscopy. Message sent to certified surgical assistant via [employer] text. Patient will start taking omeprazole barium, avoid dietary triggers and late night snacking. Staying upright for minimum 3 hours after meals discussed with with patient. Patient can continue taking Colace 1-2 capsules daily. Continue Proctosol. Stressed the importance of good bowel prep and clear liquid diet. Patient will hold Xarelto for 48 hours before procedure. I will see her after the procedure, sooner on as needed basis. She is agreeable to this plan and verbalizes understanding of instructions. She was given the opportunity to ask questions and all questions answered. ? Thank you for allowing me to participate in her care Orders Orders Liver Panel Today R74.01 US abdomen fink w elastography Today K76.0 Medications Changed Changed From docusate sodium 100 mg PO DAILY 30 caps 3RF K59.00 Changed To docusate sodium 200 mg (2 x 100 mg) PO DAILY 60 caps 3RF K59.00 UPPER ENDOSCOPY AND COLONOSCOPY Findings: Larynx: Normal Esophagus: GE junction at 32 cms, medium sized hiatal hernia 32 to 36 cms. A non obstructing Schatzki's ring at GE junction. No esophagitis or Walsh's. Stomach: A few 4-10 mm benign appearing polyps in the gastric body - biopsied. Moderate diffuse gastric erythema - biopsies were obtained from the antrum. Grade 2 flap valve on retroflexed examination of the cardia. Duodenum: Normal bulb and descending duodenum Biopsies were obtained from descending duodenum to check for celiac sprue Intervention: Biopsies as noted above COLONOSCOPY PROCEDURE NOTE Instrument: Olympus PCF H 190 L variable stiffness pediatric colonoscope Monitoring: Vital signs and clinical assessment, intermittent blood pressure monitoring, continuous EKG monitoring, Pulse oximetry and Carbon Dioxide monitoring were done throughout the procedure. Please see anesthesia flowsheet. Colon withdrawl time was 14 minutes. Procedure: The patient was placed in the left lateral decubitis position and pre-procedure medications were administered. After a digital rectal examination of the ano-rectum, the video colonoscope was inserted into the rectum and advanced through the colon to the cecum. The colonoscope was slowly withdrawn in a retrograde panoramic fashion and the colon mucosa was carefully examined including a retroflexed view of the rectum. Findings and interventions are described below. Procedure Difficulty: without difficulty Findings: Terminal Ileum: Not evaluated Cecum: Normal Ascending Colon: Normal Transverse Colon: Normal Descending Colon: Moderate diverticulosis Sigmoid Colon: A 6-7 mm diminutive appearing polyp - removed with a cold biopsy. Moderate diverticulosis Rectum: Normal Ano-rectum: Moderate internal hemorrhoids and lax anal sphincter on rectal exam Colon preparation: Good after some irrigation. [place] Bowel Preparation Scale Right colon; 2 Transverse colon: 2 Left colon; 2 (0 = Unprepared colon segment with mucosa not seen due to solid stool that cannot be cleared. 1 = Portion of mucosa of the colon segment seen, but other areas of the colon segment not well seen due to staining, residual stool and/or opaque liquid. 2 = Minor amount of residual staining, small fragments of stool and/or opaque liquid, but mucosa of colon segment seen well. 3 = Entire mucosa of colon segment seen well with no residual staining, small fragments of stool or opaque liquid) Impression and Post Procedure Diagnosis: Endoscopy Findings: ESOPHAGUS: Medium sized hiatal hernia and a non obstructing Schatzki's ring at GE junction. STOMACH: A few benign appearing polyps in the gastric body - biopsied. Moderate diffuse gastric erythema - biopsies were obtained from the antrum. DUODENUM: Normal - biopsied to check for celiac sprue Colonoscopy Findings: One small polyp was removed Moderate diverticulosis seen in the left colon Moderate hemorrhoids on retroflexed exam. Plan: Repeat Colonoscopy not indicated due to advanced age. A summary of above findings and relevant handouts were given to the patient. BIOPSIES SHOWED: A. Small bowel, biopsy: Small bowel mucosa with preserved villi and no specific change; no evidence of celiac-sprue. B. Gastric antrum, biopsy: Gastric antral mucosa with reactive changes and minimal chronic inactive gastritis; negative for H. pylori, intestinal metaplasia and dysplasia. C. Gastric polyp: Fundic gland polyp with minimal chronic inactive inflammation; negative for H.pylori, intestinal metaplasia and dysplasia. D. Colon, sigmoid, polyp: Colonic mucosa with no specific change; no adenomatous dysplasia seen. TODAY'S VISIT Patient is here today for follow-up and to discuss upper endoscopy and colonoscopy results. Patient denies any ill effects from the prep, anesthesia or procedure itself. Sigmoid polyp no adenoma, colonic mucosa with no specific change found. No need for colonoscopy unless patient is symptomatic. Gastric polyp followed. Fundic gland polyp with minimal chronic inactive inflammation no H pylori or intestinal metaplasia or dysplasia. Patient reports that she has been feeling well since she started taking omeprazole. Patient did notice that when she stopped taking it her symptoms returned. Patient otherwise states that she is healing well. Use Colace occasionally to help her bowel movement, however patient states that she is moving her bowels on her own for the most part. Patient denies melena, hematochezia. Denies dyspepsia, dysphagia or odynophagia. Denies any GI concerning symptoms today. [facility] Medical History Osteopenia of lumbar spine History of left breast cancer Current use of half-way anticoagulation Retinal hemorrhage, bilateral Decreased renal function Elevated serum creatinine Lumbar back pain with radiculopathy affecting left lower extremity Vaginal pruritus On anticoagulant therapy On beta kemal at home Nasal sinus congestion Dyslipidemia Anxiety disorder Pruritic intertrigo Low back pain Paroxysmal atrial fibrillation HTN (hypertension) Surgical History History of cataract extraction History of lumpectomy of left breast Family History Father Enlarged heart Hyperlipidemia Mother Uterine cancer Maternal Aunt Breast cancer Brother Mental health disorder Sister Mental health disorder Sister No problems noted. Son No problems noted. Son No problems noted. Social History Household Members: Spouse Housing: House Are you a primary director of managed care to a significant other at home: No Do you presently have visiting nurse or other home services: No Alcohol intake: never Patient Tobacco Use Status: Never used Tobacco e-Cigarette/Vaping Use: Never Used Second Hand Smoke Exposure: No service: No Current occupational status: retired Cognitive needs: No Hearing needs: No Vision needs: Yes Review of Systems Const Denies weight gain and Denies weight loss ENT Reports no additional complaints, Denies dysphagia and Denies odynophagia Card Reports no additional complaints Resp Reports no additional complaints GI Denies abdominal pain, Denies belching, Denies melena, Reports bloating, Denies change in bowel habits, Reports constipation, Denies dysphagia, Denies excessive flatus, Denies dyspepsia, Reports heartburn, Denies diarrhea, Denies loose stools, Denies nausea, Denies odynophagia and Denies vomiting Reports no additional complaints Musc Reports no additional complaints Neuro Reports no additional complaints Psych Reports no additional complaints Endo Reports no additional complaints Physical Exam Vital Signs: Last Vital Signs Pulse 68 01/29/25 12:16 BP 134/60 01/29/25 12:16 Pulse Ox 98 01/29/25 12:16 Oxygen Delivery Method Room Air 01/29/25 12:16 BMI result Body Mass Index 34.4 Const General: healthy appearing and no acute distress Nutritional Appearance: obese Orientation/consciousness: patient oriented x3 Cardio Rate: regular rate GI Inspection: Yes normal to inspection, No distended and Yes obesity Palpation (GI): Soft to palpation, not firm, nontender and No hepatosplenomegaly present Auscultation: normal bowel sounds General: Yes no CVA tenderness Back/Spine/Pelvis Back: no CVA tenderness Skin General skin exam: elasticity normal, turgor normal and dry skin Neuro General: patient oriented x3 Psych Appearance: grossly normal Mental Status: mental status grossly normal Assessment & Plan Assessment & Plan (1) GERD (gastroesophageal reflux disease): Code(s): K21.9 - Gastro-esophageal reflux disease without esophagitis Qualifiers: Esophagitis presence: without esophagitis Qualified Code(s): K21.9 - Gastro-esophageal reflux disease without esophagitis (2) IBS (irritable bowel syndrome): Code(s): K58.9 - Irritable bowel syndrome, unspecified Qualifiers: Irritable bowel syndrome type: without diarrhea Qualified Code(s): K58.9 - Irritable bowel syndrome, unspecified (3) Transaminitis: Code(s): R74.01 - Elevation of levels of liver transaminase levels (4) Constipation: Code(s): K59.00 - Constipation, unspecified Qualifiers: Constipation type: slow transit constipation Qualified Code(s): K59.01 - Slow transit constipation Plan Patient will continue taking omeprazole. Avoid dietary triggers and latex acute. Staying upright for minimal 3 hours after meals discussed with patient. Patient can take Colace daily. Increase fluid intake and activity to promote her bowel motility. Patient continued to have transaminitis. Denies any abdominal pain or discomfort. Discussed with patient weight loss and low fat, low salt, low carb and high protein diet. Follow-up in 6 months, sooner on as needed basis. Patient is agreeable to this plan and verbalizes understanding of instructions. She was given the opportunity to ask questions and all questions answered. Thank you for allowing me to participate in her care Medications: Refilled docusate sodium 200 mg (2 x 100 mg) PO DAILY 60 caps 3RF K59.00 - Constipation, unspecified Coding Level of Care Code Est Pt Level 4 (20878) Complex EM visit Add On G2211 Diagnoses Gastroesophageal reflux disease without esophagitis K21.9 Esophagitis presence: without esophagitis Irritable bowel syndrome without diarrhea K58.9 Irritable bowel syndrome type: without diarrhea Transaminitis R74.01 Slow transit constipation K59.01 Constipation type: slow transit constipation Time Spent (min) 35 Comment 25 minutes spent with patient and additional 10 minutes spent reviewing her records
--- OUTSIDE RECORDS SUMMARY | 2025-01-29 14:11 | XMS_ITS | Clinical Summary ---
Author Organization [facility] Address [address] [place] [address] Phone Care Team Providers Care China Painter Name Role Phone Ayaka Umana MD Primary Care Provider [phone]- [phone] Allergies No known active allergies Medications calcitriol [...] Comments Breast Cancer Screening 1950 Pneumococcal Vaccine: 50+ Ye ars (1 of 2 - PCV) 1968 Colorectal Cancer Screening: Annual FOBT 1998 Colorectal Cancer Screening: Colonoscopy 1998 Colorectal Cancer Screening: Sigmoidoscopy 1998 Influenza Vaccine (Season Ended) 2025 Hepatitis B Vaccine Aged Out No longe r eligible based on patient's age to complete this topic Insurance Medicare A[employer]na Commercial Medicare Aet Commercial Care Teams China Painter Relationship Specialty Start Date End Date Ayaka Umana MD [facility] [place] [address] PCP - General Internal Medicine 06/28/23
== END 2025-01-29 12:56 | disposition home or self-care (01) ==
PROVIDERS: PCP Internal Medicine; Visit Provider Nurse Practitioner Family
DX: K21.9 Gastro-esophageal reflux disease without esophagitis (principal); K58.9 Irritable bowel syndrome, unspecified; R74.01 Elevation of levels of liver transaminase levels; K59.01 Slow transit constipation
CPT/HCPCS: 99214; G2211

== ENCOUNTER → 2025-01-29 12:06 | Outpatient (BNVA) | payer MEDICARE, SELFPAY | PROVIDERS: PCP Internal Medicine; Visit Provider Nurse Practitioner Family ==

== ENCOUNTER → 2025-03-26 15:03 | Outpatient (BNVA) | payer MEDICARE, SELFPAY | PROVIDERS: PCP Internal Medicine; Visit Provider Internal Medicine Cardiovascular Disease | DX: Z13.89 Encounter for screening for other disorder (principal) ==

== ENCOUNTER 2025-04-22 10:31 | Outpatient (REF) | payer MEDICARE, OTHER, SELFPAY ==
--- OUTSIDE RECORDS SUMMARY | 2025-04-22 11:33 | XMS_ITS | Clinical Summary ---
Author Organization [facility] Address [address] [place] [address] Phone Care Team Providers Care Slater Apprentice Name Role Phone Ayaka Umana MD Primary Care Provider [phone]- [phone] Allergies No known active allergies Medications calcitriol [...] Health Maintenance Due Date Last Done Comments Pneumococcal Vaccine: 50+ Ye ars (1 of 2 - PCV) 1968 Influenza Vaccine (#1) 2025 Hepatitis B Vaccine Aged Out No longe r eligible based on patient's age to complete this topic Insurance Medicare [facility] Commercial Medicare [employer] Commercial Care Teams Slater Apprentice Relationship Specialty Start Date End Date Ayaka Umana MD [facility] [place] [address] PCP - General Internal Medicine 06/28/23
--- OUTSIDE RECORDS SUMMARY | 2025-04-22 11:34 | XMS_ITS | Patient Health Record ---
Author Organization [facility] Address [address] [place] [address] Care Team Providers Care Wastewater Project Engineer Name Role Phone Lyndsay BERGER, Bijal Primary Care Provider Antony Kothari Unavailable [phone] Reason For Referral No Information Medications Medication SIG (Take, Route, Frequency, Duration) Notes Start Date End Date Status Metoprolol Tartrate 50 MG 1 tablet Orall y Twice a day Active CoQ-10 200 MG 1 capsule with a ramiro l Orally Once a day Active Aspirin 81 MG 1 tablet Orally Once a day Active Simvastatin 20 MG 1 tablet in the even ing Orally Once a day Active Colyte w Flavor Packs 240 GM as directed Orally as directed for 1 day(s) 10/26/2014 Active Vitamin B Plus+ Acti ve Vitamin D 2000 UNIT Orally Active Fish Oil 1200 MG 1 capsule Orally Onc e a day Active Problems Problem Type SNOMED Code ICD Code Onset Dates Problem Status W/U Status Risk Notes Problem Colon cancer screening (941729461) Colon cancer screening (V76.51) Active confirmed Problem Irritable bowel syndrome (40906414) Irritable bowel syndrome (IBS) (564.1) Active confirmed Plan Of Treatment Future Test Test Name Order Date COLONOSCOPY 10/23/2014 Insurance Providers Payer Name Payer Address Payer Phone Subscriber Number Group Number Insured Name Patient Relationship to Insured Coverage Start Date Coverage End Date MEDICARE OF [place] [address] [place] [address] [phone] [id number] VERONICA CHIN Self - patient is the insured [facility] [address] [place], [place] [id number] [phone] [id number] VERONICA CHIN Self - patient is the insured Medical (General) History Medical History History ICD Code Screening Colonoscopy in 04/2005--only in ternal hemorrhoids Hypertension Breast cancer-left [id number] and lum pectomy Hyperlipidemia Denies PA,DM,CVA,Lung disease,renal dise ase Surgical History Surgery Date(Month/Year) lumpectomy, left-sided breast cancer
[2025-04-22 13:30] LABS: Cholesterol 164 mg/dL (<200); HDL Cholesterol 57 mg/dL (>40); Triglycerides 138 mg/dL (<150)
== END 2025-04-22 10:32 | disposition home or self-care (01) ==
LOC: HO.HMGCLDS 10:31
PROVIDERS: PCP Internal Medicine; Visit Provider Internal Medicine
DX: E78.5 Hyperlipidemia, unspecified (principal); Z13.1 Encounter for screening for diabetes mellitus
CPT/HCPCS: 36415; 80061; 82947

== ENCOUNTER 2025-04-29 09:53 | Outpatient (AMB) | payer MEDICARE, OTHER, SELFPAY ==
[2025-04-29 10:00] VITALS: BP 130/72; PULSE 74; O2SAT 97; BMI 34.9
--- NOTE | 2025-04-29 10:00 | MHC.PC.OV ---
Vital Signs 04/29/25 10:00 Height 5 ft 2 in Weight 191 lb BMI 34.9 BP 130/72 Blood Pressure Location Lt brachial Position Sitting Pulse 74 Pulse Source Pulse Oximeter Pulse Oximetry (%) 97 Oxygen Delivery Method Room Air Intake Visit Reasons: Annual PE Surveillance Monitor Required: No Allergies bupropion (From Wellbutrin) Allergy (Intermediate, Verified 04/29/25 10:17) burning sensation citalopram Allergy (Intermediate, Verified 04/29/25 10:17) burning sensatin in skin Medication List - Last Reconciled 04/29/25 by Bijal Umana MD amlodipine 5 mg PO DAILY cholecalciferol (vitamin D3) 25 mcg PO DAILY docusate sodium 200 mg (2 x 100 mg) PO DAILY estradiol 0.01%(0.1mg/gram) vaginal flecainide 50 mg PO BID lorazepam 0.5 mg PO DAILY PRN mastectomy bra (bra, mastectomy) As directed metoprolol tartrate 50 mg PO BID omeprazole 20 mg PO DAILY Prosthesis, breast (Breast prosthesis) As directed rivaroxaban (Xarelto) 20 mg PO BEDTIME Held on 01/14/25. Instructions: Resume on 01/15/25. Resume Xarelto on 01/15/25 rosuvastatin 10 mg PO DAILY Tobacco use date assessed: 04/29/25 Fall risk assessment: No Falls in past year Last assessed Fall Risk: 04/29/25 Dental Screening Dental Screen Date: 04/29/25 Did you have a dental visit in the last 12 months?: Yes Did you have a dental problem in the last 6 months where you did not have access to dental care?: No Was dental information given to patient?: Patient has dentist HPI Annual PE HPI Details - The patient is a 75-year-old female presenting today for her physical exam. 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 - Fatty liver: Diagnosed with fatty liver, showing improvement with decreased liver congestion. - Hypertension: Managed with amlodipine, room addition to metoprolol tartrate 50 mg 1 tablet twice a day, resulting in improved blood pressure control. - Atrial fibrillation currently on rivaroxaban 20 mg daily and flecainide 50 mg 1 tablet twice a day, [place] [facility] [place]. Had a stress test conducted last year, with benign findings. - Blepharitis: Currently followed at [facility] and also sees a retina specialist in [place] - Constipation: Managed with Colace and dietary fiber intake, [place] [facility]. - Retinal hemorrhage: Possibly related to hypertension, under care of a retina specialist. - Osteopenia in lumbar spine and left femur: Noted on recent bone density scan done earlier this year, no history of fracture, takes adequate calcium from dietary sources and vitamin-D 3 supplements 1000 units daily - Gastroesophageal reflux disease: Managed with omeprazole and famotidine, followed [place] [facility], -recent EGD and colonoscopy done 01/14/[address] Herrera showed medium-sized hiatal hernia and a nonobstructing Schatzki's ring at the GE junction, benign gastric polyps, benign colonic polyp removed and presence of moderate diverticulosis in left side of the colon and moderate hemorrhoids, repeat colonoscopy not indicated due to advanced age per [facility] Medical History (Updated 04/29/25 @ 11:26 by Bijal Umana MD) IgM monoclonal gammopathy of uncertain significance Environmental and seasonal allergies Osteopenia of multiple sites History of left breast cancer Current use of marine oil terminal superintendent anticoagulation Retinal hemorrhage, bilateral Decreased renal function On anticoagulant therapy Dyslipidemia Anxiety disorder Paroxysmal atrial fibrillation HTN (hypertension) Surgical History History of cataract extraction History of lumpectomy of left breast Family History Father Enlarged heart Hyperlipidemia Mother Uterine cancer Maternal Aunt Breast cancer Brother Mental health disorder Sister Mental health disorder Sister No problems noted. Son No problems noted. Son No problems noted. Social History Household Members: Spouse Housing: House Are you a primary caretaker grounds to a significant other at home: No Do you presently have visiting nurse or other home services: No Alcohol intake: never Patient Tobacco Use Status: Never used Tobacco e-Cigarette/Vaping Use: Never Used Second Hand Smoke Exposure: No service: No Current occupational status: retired Cognitive needs: No Hearing needs: No Vision needs: Yes Questionnaire PHQ-9 Over the last 2 weeks, how often have you been bothered by any of the following problems? 1. Little interest or pleasure in doing things: not at all 2. Feeling down, depressed, or hopeless: not at all 3. Trouble falling or staying asleep, or sleeping too much: not at all 4. Feeling tired or having little energy: not at all 5. Poor appetite or overeating: not at all 6. Feeling bad about yourself - or that you are a failure or have let yourself or your family down: not at all 7. Trouble concentrating on things, such as reading the newspaper or watching television: not at all 8. Moving or speaking so slowly that other people could have noticed. Or the opposite - being so fidgety or restless that you have been moving around a lot more than usual: not at all 9. Thoughts that you would be better off or of hurting yourself in some way: not at all Total score: 0 Depression Screening Interpretation: Negative Depression Screening Done: Yes 45839 - PHQ-9 Billing: Yes Source: Developed by Drs. Antony Samuel, Isis Christensen, Mehul Casper and colleagues, with an educational roseline from [employer]. Thrive Questionnaire Date Thrive assessed: 04/29/25 I am a: Patient What is your living situation today?: I have a steady place to live Within the past 12 months, did the food you bought not last and you didn't have the money to get more?: Never true Within the past 12 months, did you worry whether your food would run out before you got money to buy more?: Never true Do you have trouble paying for medicines?: No Do you have trouble getting transportation to medical appointments?: No Do you have trouble paying your heating and electricity bill?: No Do you have trouble taking care of your child, family member or friend?: No Do you have trouble with day-to-day activities such as bathing, preparing meals, shopping, managing finances, etc.?: No Are you currently unemployed and looking for a job?: No Are you interested in more education?: No Please select the resources that you would like help with: None Currently or been in a relationship where the following occur: No concerns reported THRIVE Score: 0 AUDIT C Alcohol Use Questionnaire (AUDIT-C) 1. How often do you have a drink containing alcohol?: Never 3. How often do you have six or more drinks on one occasion?: Never Total Score: 0 Score Reviewed/Action Taken: Yes HERNAN-7 AMB Questionnaire HERANN-7 Date HERNAN - 7 assessed: 04/29/25 Feeling nervous, anxious, or on edge: 0 = Not at all Not being able to stop or control worryin = Not at all Worrying too much about different things: 0 = Not at all Trouble relaxin = Not at all Being so restless that it is hard to sit still: 0 = Not at all Becoming easily annoyed or irritable: 0 = Not at all Feeling afraid as if something awful might happen: 0 = Not at all Total HERNAN-7 score (0-4 normal; 5-9 mild; 10-14 moderate; 15-21 severe): 0 Source: Developed by Drs. Antony Samuel, Isis Christensen, Mehul Casper and colleagues, with an educational roseline from [employer]. HERNAN-7 Assessment Billing HERNAN-7 Assessment Tool: HERNAN-7 Assessment 17311 Review of Systems Const Reports no additional complaints and Reports weight gain Eyes Details: Currently being seen for blepharitis at [facility] and also being followed for history of retinal bleed at the [facility] in [place] ENT Reports no additional complaints and Denies dysphagia Card Reports no additional complaints Resp Reports no additional complaints GI Denies abdominal pain, Denies belching, Denies melena, Denies hematochezia, Denies change in bowel habits, Reports constipation (Bruit with increase dietary fiber intake), Denies dysphagia, Denies excessive flatus, Reports heartburn and Denies diarrhea Reports vaginal dryness (Inconsistent with the use of her estradiol vaginal cream) Musc Details: Occasionally knee pain Skin/Breast Denies breast pain, Denies breast mass and Denies rash Neuro Reports no additional complaints Psych Reports no additional complaints Endo Reports no additional complaints Abundio/Lymph Reports no additional complaints Aller/Immun Reports seasonal rhinorrhea Physical exam (Primary Care) Vital Signs: Last Vital Signs Pulse 74 04/29/25 10:00 BP 130/72 04/29/25 10:00 Pulse Ox 97 04/29/25 10:00 Oxygen Delivery Method Room Air 04/29/25 10:00 BMI result Body Mass Index 34.9 Tobacco/Smoking Status: Tobacco use Status Tobacco use date assessed 04/29/25 04/29/25 10:03 Patient Tobacco Use Status Never used Tobacco 04/29/25 10:00 e-Cigarette/Vaping Use Never Used 04/29/25 10:00 PHQ-9: PHQ-9 Score PHQ-9: Total score 0 04/29/25 10:03 Depression Screening Interpretation: Negative Thrive Assessment: Date of Thrive Assessment Date Thrive assessed 04/29/25 04/29/25 10:03 Currently or been in a relationship where the following occur: No concerns reported Const Other: Alert oriented x3, no acute distress noted Nutritional Appearance: obese HENMT General nose exam: Normal external nose present and No nasal discharge present Face and sinus: Yes face symmetric Mouth: Normal oral and palatal mucosa present and moist mucous membranes Eyes General: appearance normal, both eyes and all related structures Conjunctivae: conjunctivae normal Sclerae: sclerae normal Pupils: Equal, round and reactive pupils present EOM: EOMs intact bilaterally Neck Neck: Yes full ROM, Yes no lymphadenopathy and Yes supple Thyroid: Thyroid normal Chest Breast/axilla palpation: normal palpation of the breasts Resp Auscultation: clear to auscultation bilaterally Cardio Other: S1-S2 present regular rate and rhythm GI Palpation (GI): Soft to palpation, nontender, no guarding and no masses Auscultation: normal bowel sounds General: Yes no CVA tenderness Back/Spine/Pelvis Back: no CVA tenderness and No back tenderness Skin General skin exam: no rashes or lesions noted Neuro General: gait normal, moves all extremities, Normal light touch and pain sensation, no focal motor deficits and CN's II-XI intact bilaterally Cranial nerves: Yes Equal, round and reactive pupils present Extrem Other: Crepitus both knees General: Yes full ROM, Yes no joint enlargement, Yes no pedal edema, Yes no calf tenderness and Yes normal gait Psych Appearance: grossly normal and well kempt Mental Status: mental status grossly normal Speech and movement: Normal speech and movement present Affect: normal affect Results Reviewed Results Reviewed: Name: Shellie Salgado Age/Sex: 75/F : 1950 Unit#: [id number] Attend Dr: Bijal Umana MD Re04/22/25 Status: DEP [facility] Dis[facility]: SPEC : [id number] JANA: 04/22/25 STATUS: COMP REQ : [id number] RECD: 04/22/25-[address]: Bijal Umana MD COMP: 04/22/25 ENTERED: 04/22/25-[address]: ORDERED: Glu Fasting, Lipid Panel Test Result Flag Reference FBS 106 H 60-99 mg/dL A fasting glucose from 100-125 mg/dl is considered impaired (pre-diabetes). Triglyceride 138 <150 mg/dL Desirable Triglyceride: less than 150 mg/dL Borderline High Triglyceride 150-199 mg/dL High Triglyceride: 200-499 mg/dL Very High Triglyceride: greater than or equal to 5OO mg/dL Cholesterol 164 <200 mg/dL Desirable Cholesterol: less than 200 mg/dL Borderline High Cholesterol: 200-239 mg/dL High Cholesterol: greater than 239 mg/dL LDL Calculated 80 <100 mg/dL Desirable LDL: less than 100 mg/dL Near Optimal/Above Optimal LDL: 110-129 mg/dL Borderline High LDL: 130-159 mg/dL High LDL: 160-189 mg/dL Very High LDL: greater than or equal to 190 mg/dL HDL 57 >40 mg/dL Desirable HDL: greater than 40 mg/dL Note: This HDL assay may give artificially low results in patients with liver disease. Coding Level of Care Code Est Pt Prev Care >65y(85240) Diagnoses Dyslipidemia E78.5 Paroxysmal atrial fibrillation I48.0 Primary hypertension I10 Hypertension type: primary hypertension Anxiety disorder F41.9 Osteopenia of multiple sites M85.89 CKD (chronic kidney disease) stage 2, GFR 60-89 ml/min N18.2 Current use of marine oil terminal superintendent anticoagulation Z79.01 Annual visit for general adult medical examination with abnormal findings Z00.01 Environmental and seasonal allergies J30.89 IgM monoclonal gammopathy of uncertain significance D47.2 Additional Codes HERNAN-7 Assessment Billing - HERNAN-7 Assessment Tool: HERNAN-7 Assessment 60774 ([id number]) PHQ-9 - 05533 - PHQ-9 Billing: Yes ([id number]) Assessment & Plan Assessment & Plan (1) Dyslipidemia: Code(s): E78.5 - Hyperlipidemia, unspecified Category: Medical (2) Paroxysmal atrial fibrillation: Comment: FRANCHESKA guided cardioversion in December of 2015. Normal structure of the heart Foll'd by Dr. Anna Code(s): I48.0 - Paroxysmal atrial fibrillation Category: Medical (3) HTN (hypertension): Code(s): I10 - Essential (primary) hypertension Category: Medical Qualifiers: Hypertension type: primary hypertension Qualified Code(s): I10 - Essential (primary) hypertension (4) Anxiety disorder: Code(s): F41.9 - Anxiety disorder, unspecified Category: Medical (5) Osteopenia of multiple sites: Comment: Lumbar spine and left femur Code(s): M85.89 - Other specified disorders of bone density and structure, multiple sites Category: Medical (6) CKD (chronic kidney disease) stage 2, GFR 60-89 ml/min: Code(s): N18.2 - Chronic kidney disease, stage 2 (mild) Category: Medical (7) Current use of assisted anticoagulation: Code(s): Z79.01 - remote computer terminal operator (current) use of anticoagulants Category: Medical (8) Annual visit for general adult medical examination with abnormal findings: Code(s): Z00.01 - Encounter for general adult medical examination with abnormal findings (9) Environmental and seasonal allergies: Code(s): J30.89 - Other allergic rhinitis Category: Medical (10) IgM monoclonal gammopathy of uncertain significance: Code(s): D47.2 - Monoclonal gammopathy Category: Medical Plan The patient will continue regular monitoring for monoclonal gammopathy with hematology follow-ups every six months, including blood work and imaging as needed. Management of hypertension will continue with amlodipine, and the patient is advised to monitor blood pressure regularly. For atrial fibrillation, the patient currently on flecainide and Xarelto as well as metoprolol tartrate, and follow up with cardiology The patient is advised to continue dietary modifications to manage fatty liver and constipation, with emphasis on fiber intake. Regular ophthalmology follow-ups are recommended for retinal hemorrhage and blepharitis management. The patient should continue using omeprazole and famotidine for GERD, with consideration of potential long-term effects on bone density, patient states she will discuss this with her GI specialist when she sees her tomorrow.. Takes lorazepam as needed for acute anxiety attacks which occurs infrequently. Refill sent for fluticasone propionate 50 mcg per actuation 1 spray intranasally once or twice a day as needed Fasting lipids are within normal limits, continued on rosuvastatin 10 mg daily and blood pressure stable and controlled on current dose of amlodipine 5 mg daily and metoprolol tartrate 50 mg taken 1 tablet twice a day. Up-to-date with all her vaccinations Up-to-date with her screening colonoscopy done earlier this year, with no further screening indicated per GI Patient was informed and verbally consented to the use of an ambient scribe for clinic note documentation during this visit. Medications: Refilled lorazepam 0.5 mg PO DAILY PRN 30 tabs 0RF anxiety fluticasone propionate 50 mcg/actuation (Flonase Allergy Relief) administer into each nostril 1 spray intranasal BID 16 grams 5RF R09.81 - Nasal congestion
--- OUTSIDE RECORDS SUMMARY | 2025-04-29 10:54 | XMS_ITS | Patient Health Record ---
Author Organization [facility] Address [address] [place] [address] Care Team Providers Care Blood Bank Calendar Control Clerk Name Role Phone Lyndsay BERGER, Bijal Primary Care Provider Antony Kothari Unavailable [phone] Reason For Referral No Information Medications Medication [...] Status Risk Notes Problem Colon cancer screening (512812587) Colon cancer screening (V76.51) Active confirmed Problem Irritable bowel syndrome (51193204) Irritable bowel syndrome (IBS) (564.1) Active confirmed Plan Of Treatment Future Test Test Name Order Date COLONOSCOPY 10/23/2014 Insurance Providers Payer Name Payer Address Payer Phone Subscriber Number Group Number Insured Name Patient Relationship to Insured Coverage Start Date Coverage End Date MEDICARE OF [place] [address] [facility] [place] [address] [phone] [id number] VERONICA CHIN Self - patient is the insured [facility] [address] [place], [place] [id number] VERONICA CHIN Self - patient is the insured Medical (General) History Medical History History ICD Code Screening Colonoscopy in 04/2005--only in ternal hemorrhoids Hypertension Breast cancer-left [id number] and lum pectomy Hyperlipidemia Denies PA,DM,CVA,Lung disease,renal dise ase Surgical History Surgery Date(Month/Year) lumpectomy, left-sided breast cancer
--- OUTSIDE RECORDS SUMMARY | 2025-04-29 10:54 | XMS_ITS | Clinical Summary ---
Author Organization [facility] Address [address] [place] [address] Phone Care Team Providers Care Receiving Operator Name Role Phone Ayaka Umana MD Primary Care Provider [phone] Allergies No known active allergies Medications calcitriol [...] age to complete this topic Insurance Medicare [facility] Commercial Medicare [employer] Commercial Care Teams Receiving Operator Relationship Specialty Start Date End Date Ayaka Umana MD [facility] [place] [address] PCP - General Internal Medicine 06/28/23
== END 2025-04-29 13:46 | disposition home or self-care (01) ==
LOC: HO.HMCC 09:54
PROVIDERS: PCP Internal Medicine; Visit Provider Internal Medicine
DX: Z00.01 Encounter for general adult medical examination with abnormal findings (principal); I12.9 Hypertensive chronic kidney disease with stage 1 through stage 4 chronic kidney disease, or unspecified chronic kidney disease; I48.0 Paroxysmal atrial fibrillation; E78.5 Hyperlipidemia, unspecified; F41.9 Anxiety disorder, unspecified; M85.89 Other specified disorders of bone density and structure, multiple sites; N18.2 Chronic kidney disease, stage 2 (mild); Z79.01 Long term (current) use of anticoagulants; J30.89 Other allergic rhinitis; D47.2 Monoclonal gammopathy

== ENCOUNTER → 2025-04-29 09:53 | Outpatient (BNVA) | payer MEDICARE, SELFPAY | PROVIDERS: PCP Internal Medicine; Visit Provider Internal Medicine | DX: Z00.01 Encounter for general adult medical examination with abnormal findings (principal); E78.5 Hyperlipidemia, unspecified; I48.0 Paroxysmal atrial fibrillation; I12.9 Hypertensive chronic kidney disease with stage 1 through stage 4 chronic kidney disease, or unspecified chronic kidney disease; N18.2 Chronic kidney disease, stage 2 (mild); M85.89 Other specified disorders of bone density and structure, multiple sites; F41.9 Anxiety disorder, unspecified; Z79.01 Long term (current) use of anticoagulants; J30.89 Other allergic rhinitis; D47.2 Monoclonal gammopathy | CPT/HCPCS: 96127; 99397 ==

== ENCOUNTER 2025-04-30 11:55 | Outpatient (AMB) | payer OTHER, SELFPAY ==
--- NOTE | 2025-04-30 11:59 | A.OFFVIS_ITS ---
Vital Signs 04/30/25 12:04 Height 5 ft 2 in Weight 191 lb BMI 34.9 BP 134/62 Blood Pressure Location Rt brachial Position Sitting Pulse 62 Pulse Source Pulse Oximeter Pulse Oximetry (%) 97 Oxygen Delivery Method Room Air Intake Visit Reasons: 30 m. 3 mo f/u Intake Note: Est pt for GERD + CIC mgmt. CC: Pt denies any changes or concerns since last visit. Meds working OK. Curr ently taking abx and had to make adjustments per PCP instructions. Discotheque Dancer Required: No Accompanied by: Self / Same As Patient Allergies bupropion (From Wellbutrin) Allergy (Intermediate, Verified 04/30/25 12:05) burning sensation citalopram Allergy (Intermediate, Verified 04/30/25 12:05) burning sensatin in skin HPI HPI 30 m. 3 mo f/u: Details: LAST VISIT GERD (gastroesophageal reflux disease) IBS (irritable bowel syndrome) Transaminitis Constipation Plan Patient will continue taking omeprazole. Avoid dietary triggers and latex acute. Staying upright for minimal 3 hours after meals discussed with patient. Patient can take Colace daily. Increase fluid intake and activity to promote her bowel motility. Patient continued to have transaminitis. Denies any abdominal pain or discomfort. Discussed with patient weight loss and low fat, low salt, low carb and high protein diet. Follow-up in 6 months, sooner on as needed basis. Patient is agreeable to this plan and verbalizes understanding of instructions. She was given the opportunity to ask questions and all questions answered. ? Thank you for allowing me to participate in her care Refilled docusate sodium 200 mg (2 x 100 mg) PO DAILY 60 caps 3RF K59.00 TODAY'S VISIT Patient is here today for follow-up. Patient reports that she has been doing well, however in the past few days she has been started on antibiotic by her spray crew and she is experiencing acid reflux. Patient is taking omeprazole and would like to wean herself of in the near future. Patient reports that she never had acid reflux in the past, however she does admit that she has epigastric pain when she eats large meals for sweets. Patient does admit to have a sweet to. Wants to lose weight and will speak to her internet and e business project manager which medication would be the best for her. Patient denies any melena, hematochezia, unintentional weight loss or ribbon like stools. Denies any dyspepsia, dysphagia or odynophagia. However patient does report feeling like her swallowing is slower specially at the lower portion of her esophagus. History of Schatzki ring and dilation in the past. [facility] Medical History IgM monoclonal gammopathy of uncertain significance Environmental and seasonal allergies Osteopenia of multiple sites History of left breast cancer Current use of intermediate teacher anticoagulation Retinal hemorrhage, bilateral Decreased renal function On anticoagulant therapy Dyslipidemia Anxiety disorder Paroxysmal atrial fibrillation HTN (hypertension) Surgical History History of cataract extraction History of lumpectomy of left breast Family History Father Enlarged heart Hyperlipidemia Mother Uterine cancer Maternal Aunt Breast cancer Brother Mental health disorder Sister Mental health disorder Sister No problems noted. Son No problems noted. Son No problems noted. Social History Household Members: Spouse Housing: House Are you a primary career information specialist to a significant other at home: No Do you presently have visiting nurse or other home services: No Alcohol intake: never Patient Tobacco Use Status: Never used Tobacco e-Cigarette/Vaping Use: Never Used Second Hand Smoke Exposure: No service: No Current occupational status: retired Cognitive needs: No Hearing needs: No Vision needs: Yes Review of Systems Const Denies weight gain and Denies weight loss ENT Reports no additional complaints, Reports dysphagia (Feels like swallowing is slower) and Denies odynophagia Card Reports no additional complaints Resp Reports no additional complaints GI Denies abdominal pain, Denies belching, Denies melena, Reports bloating, Denies change in bowel habits, Reports constipation, Reports dysphagia (Feels like swallowing is slower), Denies excessive flatus, Denies dyspepsia, Denies heartburn, Denies diarrhea, Reports loose stools, Denies nausea, Denies odynophagia and Denies vomiting Reports no additional complaints Musc Reports no additional complaints Neuro Reports no additional complaints Psych Reports no additional complaints Endo Reports no additional complaints Physical Exam Vital Signs: Last Vital Signs Pulse 62 04/30/25 12:04 BP 134/62 04/30/25 12:04 Pulse Ox 97 04/30/25 12:04 Oxygen Delivery Method Room Air 04/30/25 12:04 BMI result Body Mass Index 34.9 Const General: healthy appearing and no acute distress Nutritional Appearance: obese Orientation/consciousness: patient oriented x3 Cardio Rate: regular rate GI Inspection: Yes normal to inspection, No distended and Yes obesity Palpation (GI): Soft to palpation, not firm, nontender and No hepatosplenomegaly present Auscultation: normal bowel sounds General: Yes no CVA tenderness Back/Spine/Pelvis Back: no CVA tenderness Skin General skin exam: elasticity normal, turgor normal and dry skin Neuro General: patient oriented x3 Psych Appearance: grossly normal Mental Status: mental status grossly normal Assessment & Plan Assessment & Plan (1) Gastroesophageal reflux disease: Code(s): K21.9 - Gastro-esophageal reflux disease without esophagitis Qualifiers: Esophagitis presence: esophagitis presence not specified Qualified Code(s): K21.9 - Gastro-esophageal reflux disease without esophagitis (2) Irritable bowel syndrome: Code(s): K58.9 - Irritable bowel syndrome, unspecified Qualifiers: Irritable bowel syndrome type: with both diarrhea and constipation Qualified Code(s): K58.2 - Mixed irritable bowel syndrome (3) Elevated transaminase measurement: Code(s): R74.01 - Elevation of levels of liver transaminase levels (4) Constipation: Code(s): K59.00 - Constipation, unspecified Qualifiers: Constipation type: slow transit constipation Qualified Code(s): K59.01 - Slow transit constipation Plan Patient will continue taking omeprazole daily. Avoid dietary triggers like that snacking. Staying upright for minimal 3 hours after meals discussed with patient. Continue stool softeners. Increased fiber, fluid intake and activity to promote better bowel motility. Weight loss recommended. Low fat, low carb diet. Avoid sugars and sweets. Follow-up in 4 months, sooner on as needed basis. Patient is agreeable to this plan and verbalizes understanding of instructions. She was given the opportunity to ask questions and all questions answered. Thank you for allowing me to participate in her care Coding Level of Care Code Est Pt Level 3 (38584) Diagnoses Gastroesophageal reflux disease, unspecified whether esophagitis present K21.9 Esophagitis presence: esophagitis presence not specified Irritable bowel syndrome with both constipation and diarrhea K58.2 Irritable bowel syndrome type: with both diarrhea and constipation Elevated transaminase measurement R74.01 Slow transit constipation K59.01 Constipation type: slow transit constipation Time Spent (min) 30 Comment 20 minutes spent with patient and additional 10 minutes spent reviewing her records
[2025-04-30 12:04] VITALS: BP 134/62; PULSE 62; O2SAT 97; BMI 34.9
--- OUTSIDE RECORDS SUMMARY | 2025-04-30 12:53 | XMS_ITS | Clinical Summary ---
Author Organization [facility] Address [address] [place] [address] Phone Care Team Providers Care Waiter/Waitress Room Service Name Role Phone Ayaka Umana MD Primary Care Provider [phone] Allergies No known active allergies Medications calcitriol [...] age to complete this topic Insurance Medicare [facility] Commercial Medicare [employer] Commercial Care Teams Waiter/Waitress Room Service Relationship Specialty Start Date End Date Ayaka Umana MD [facility] [place] [address] PCP - General Internal Medicine 06/28/23
--- OUTSIDE RECORDS SUMMARY | 2025-04-30 12:53 | XMS_ITS | Patient Health Record ---
Author Organization [facility] Address [address] [place] [address] Care Team Providers Care Tool Dresser Name Role Phone Lyndsay BERGER, Bijal Primary Care Provider Antony Kothari Unavailable [phone] Reason For Referral No Information Medications Medication [...] Status Risk Notes Problem Colon cancer screening (371646954) Colon cancer screening (V76.51) Active confirmed Problem Irritable bowel syndrome (92357364) Irritable bowel syndrome (IBS) (564.1) Active confirmed Plan Of Treatment Future Test Test Name Order Date COLONOSCOPY 10/23/2014 Insurance Providers Payer Name Payer Address Payer Phone Subscriber Number Group Number Insured Name Patient Relationship to Insured Coverage Start Date Coverage End Date MEDICARE OF [place] [address] [place] [address] [id number] VERONICA CHIN Self - patient is the insured [facility] [address] [place], [place] [id number] VERONICA CHIN Self - patient is the insured Medical (General) History Medical History History ICD Code Screening Colonoscopy in 04/2005--only in ternal hemorrhoids Hypertension Breast cancer-left [id number] and lum pectomy Hyperlipidemia Denies [place],DM,CVA,Lung disease,renal dise ase Surgical History Surgery Date(Month/Year) lumpectomy, left-sided breast cancer
== END 2025-04-30 12:30 | disposition home or self-care (01) ==
LOC: HO.HGI 11:56
PROVIDERS: PCP Internal Medicine; Visit Provider Nurse Practitioner Family
DX: K21.9 Gastro-esophageal reflux disease without esophagitis (principal); K58.2 Mixed irritable bowel syndrome; R74.01 Elevation of levels of liver transaminase levels; K59.01 Slow transit constipation
CPT/HCPCS: 99213

== ENCOUNTER 2025-05-24 14:17 | Outpatient (AMB) | payer MEDICARE, SELFPAY ==
--- OUTSIDE RECORDS SUMMARY | 2025-05-24 14:21 | XMS_ITS | Clinical Summary ---
Author Organization [facility] Address [address] [place] [address] Phone Care Team Providers Care Residential Substance Abuse Counselor Name Role Phone Ayaka Umana MD Primary Care Provider [phone]- [phone] Allergies No known active allergies Medications calcitriol [...] age to complete this topic Insurance Medicare [facility] Commercial Medicare [employer] Commercial Care Teams Residential Substance Abuse Counselor Relationship Specialty Start Date End Date Ayaka Umana MD [facility] [place] [address] PCP - General Internal Medicine 06/28/23
--- OUTSIDE RECORDS SUMMARY | 2025-05-24 14:21 | XMS_ITS | Patient Health Record ---
Author Organization [facility] Address [address] [place] [address] Care Team Providers Care Catapult And Arresting Gear Officer Name Role Phone Lyndsay BERGER, Bijal Primary Care Provider Antony Kothari Unavailable [phone] Reason For Referral No Information Medications Medication [...] Status Risk Notes Problem Colon cancer screening (842674090) Colon cancer screening (V76.51) Active confirmed Problem Irritable bowel syndrome (76391878) Irritable bowel syndrome (IBS) (564.1) Active confirmed Plan Of Treatment Future Test Test Name Order Date COLONOSCOPY 10/23/2014 Insurance Providers Payer Name Payer Address Payer Phone Subscriber Number Group Number Insured Name Patient Relationship to Insured Coverage Start Date Coverage End Date MEDICARE OF [place] [address] [place] [address] [phone] [id number] VERONICA CHIN Self - patient is the insured [facility] [address] [place], [place] [id number] [phone] [id number] VERONICA CHIN Self - patient is the insured Medical (General) History Medical History History ICD Code Screening Colonoscopy in 04/2005--only in ternal hemorrhoids Hypertension Breast cancer-left [id number] and lum pectomy Hyperlipidemia Denies [place],DM,CVA,Lung disease,renal dise ase Surgical History Surgery Date(Month/Year) lumpectomy, left-sided breast cancer
--- NOTE | 2025-05-24 14:31 | HO.NEPHOV ---
Vital Signs 05/24/25 14:36 Height 5 ft 2 in Weight 193 lb 8 oz BMI 35.4 BP 128/64 Blood Pressure Location Rt brachial Position Sitting Pulse 70 Pulse Source Pulse Oximeter Pulse Oximetry (%) 96 Oxygen Delivery Method Room Air Intake Visit Reasons: Medication Review-Conf Uke Operator Required: No Accompanied by: Self / Same As Patient Allergies bupropion (From Wellbutrin) Allergy (Intermediate, Verified 05/24/25 14:35) burning sensation citalopram Allergy (Intermediate, Verified 05/24/25 14:35) burning sensatin in skin HPI Comments Details: I had the privilege of seeing Shellie in follow up for her mild CKD on a backdrop of long standing hypertension. She had not been monitoring her BP closely at home until recently but has been compliant with metoprolol. She has history of paroxysmal atrial fibrillation on xarelto . She was recently diagnosed with retinal hemorrhages. She is not a diabetic. She denies Carotid stenosis, CAD, CHF, PAD, MITUL, CVA, recurrent UTI's, renal stones, hearing deficits, M/S hematuria, joint swellings, photosensitivity, skin rashes, epistaxis, hemoptysis, hemetemesis or melena. She denies new bone or back pain. She doesn't take excess NSAID's. She was recently found to have high IgM levels with [place] monoclonal bands and has seen steward/stewardess banquet who did the BM biopsy which was negative. She has no symptoms of hyperviscosity. She has remote H/O breast cancer. She had CT abdomen which showed some abnormal thickening and is being investigated. She is not known to have proteinuria. Her BP was not well controlled on metoprolol and amlodipine was added with better control. She denies being on ACEI/ARB. Her last serum creatinine has been stable [facility] Medical History IgM monoclonal gammopathy of uncertain significance Environmental and seasonal allergies Osteopenia of multiple sites History of left breast cancer Current use of longwall foreman anticoagulation Retinal hemorrhage, bilateral Decreased renal function On anticoagulant therapy Dyslipidemia Anxiety disorder Paroxysmal atrial fibrillation HTN (hypertension) Surgical History History of cataract extraction History of lumpectomy of left breast Family History Father Enlarged heart Hyperlipidemia Mother Uterine cancer Maternal Aunt Breast cancer Brother Mental health disorder Sister Mental health disorder Sister No problems noted. Son No problems noted. Son No problems noted. Social History Household Members: Spouse Housing: House Are you a primary adult caregiver to a significant other at home: No Do you presently have visiting nurse or other home services: No Alcohol intake: never Patient Tobacco Use Status: Never used Tobacco e-Cigarette/Vaping Use: Never Used Second Hand Smoke Exposure: No service: No Current occupational status: retired Cognitive needs: No Hearing needs: No Vision needs: Yes Review of Systems Const All systems reviewed & are unremarkable except as noted in HPI and below Physical Exam Const General: comfortable and no acute distress Orientation/consciousness: patient oriented x3 HEENT Head: Yes normocephalic Mouth: Normal oral and palatal mucosa present Eyes EOM: EOMs intact bilaterally Neck Neck: Yes supple Resp Auscultation: clear to auscultation bilaterally Cardio Jugular venous distension: no JVD Rate: regular rate GI Palpation (GI): Soft to palpation Auscultation: normal bowel sounds General: Yes no CVA tenderness Back/Spine/Pelvis Back: no CVA tenderness Skin General skin exam: no rashes or lesions noted Neuro General: patient oriented x3 and moves all extremities Extrem General: Yes no pedal edema Results Reviewed Nephrology Results: Renal US 10/06/23 Assessment & Plan Assessment & Plan (1) HTN (hypertension): Code(s): I10 - Essential (primary) hypertension Category: Medical Qualifiers: Hypertension type: primary hypertension Qualified Code(s): I10 - Essential (primary) hypertension (2) Renal artery stenosis: Code(s): I70.1 - Atherosclerosis of renal artery Category: Medical (3) CKD (chronic kidney disease) stage 2, GFR 60-89 ml/min: Code(s): N18.2 - Chronic kidney disease, stage 2 (mild) Category: Medical (4) IgM monoclonal gammopathy of uncertain significance: Code(s): D47.2 - Monoclonal gammopathy Category: Medical Plan 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 Her serum creatinine is fairly stable. She has no blood or protein in the urine. Doppler of renal arteries showed hemodynamically significant right renal artery stenosis. Her 24 hour urine showed GFR of close to 80 mls/mt. She was found to have high IgM and had bone marrow biopsy. She has no anemia, hypercalcemia, pancytopenia or rising serum creatinine. She will be a candidate for ACEI/ARB in the future. I did not make any medication changes today. All her and her husbands questions were answered. Medications: Resumed rivaroxaban (Xarelto) 20 mg PO BEDTIME 90 tabs 3RF I48.0 - Paroxysmal atrial fibrillation Coding Level of Care Code Est Pt Level 4 (94307) Diagnoses Primary hypertension I10 Hypertension type: primary hypertension Renal artery stenosis I70.1 CKD (chronic kidney disease) stage 2, GFR 60-89 ml/min N18.2 IgM monoclonal gammopathy of uncertain significance D47.2
[2025-05-24 14:36] VITALS: BP 128/64; PULSE 70; O2SAT 96; BMI 35.4
== END 2025-05-24 14:58 | disposition home or self-care (01) ==
LOC: HO.HKA 14:18
PROVIDERS: PCP Internal Medicine; Visit Provider Internal Medicine Nephrology
DX: I12.9 Hypertensive chronic kidney disease with stage 1 through stage 4 chronic kidney disease, or unspecified chronic kidney disease (principal); I70.1 Atherosclerosis of renal artery; N18.2 Chronic kidney disease, stage 2 (mild); D47.2 Monoclonal gammopathy
CPT/HCPCS: 99214

== ENCOUNTER → 2025-05-24 14:17 | Outpatient (BNVA) | payer MEDICARE, SELFPAY | PROVIDERS: PCP Internal Medicine; Visit Provider Internal Medicine Nephrology | DX: I12.9 Hypertensive chronic kidney disease with stage 1 through stage 4 chronic kidney disease, or unspecified chronic kidney disease (principal); N18.2 Chronic kidney disease, stage 2 (mild); I70.1 Atherosclerosis of renal artery; D47.2 Monoclonal gammopathy | CPT/HCPCS: 99212 ==

== ENCOUNTER 2025-06-07 10:09 | Outpatient (AMB) | payer MEDICARE, OTHER, SELFPAY ==
--- NOTE | 2025-06-07 10:06 | MHC.PC.OV ---
Intake Visit Reasons: discuss wgt loss med/ is willing to pay out of poc Allergies bupropion (From Wellbutrin) Allergy (Intermediate, Verified 06/07/25 10:24) burning sensation citalopram Allergy (Intermediate, Verified 06/07/25 10:24) burning sensatin in skin Medication List - Last Reconciled 06/07/25 by Bijal Umana MD amlodipine 5 mg PO DAILY cholecalciferol (vitamin D3) 25 mcg PO DAILY docusate sodium 200 mg PO DAILY PRN estradiol 0.01%(0.1mg/gram) vaginal famotidine 20 mg PO DAILY flecainide 50 mg PO BID fluticasone propionate 50 mcg/actuation (Flonase Allergy Relief) 1 spray intranasal BID PRN lorazepam 0.5 mg PO DAILY PRN mastectomy bra (bra, mastectomy) As directed metoprolol tartrate 50 mg PO BID omeprazole 20 mg PO DAILY PRN Prosthesis, breast (Breast prosthesis) As directed rivaroxaban (Xarelto) 20 mg PO BEDTIME rosuvastatin 10 mg PO DAILY Tobacco use date assessed: 06/07/25 Fall risk assessment: No Falls in past year Last assessed Fall Risk: 06/07/25 Dental Screening Dental Screen Date: 06/07/25 Did you have a dental visit in the last 12 months?: Yes Did you have a dental problem in the last 6 months where you did not have access to dental care?: No Was dental information given to patient?: Patient has dentist HPI discuss wgt loss med/ is willing to pay out of poc HPI Details - The patient is a 75-year-old female presenting with a discussion regarding the initiation of GLp-1 agonist for weight management and kidney protection. - Obesity: The patient has been considering Wegovy for weight loss, as she is at her highest weight of 193 pounds despite having a personal companion and exercising twice a week. However, she reports difficulty controlling her eating habits and has tried various methods without success. - Chronic kidney disease, stage 2: The patient is being followed for stage 2 chronic kidney disease by her stripper latex, suggested taking a GLP 1 agonist. [facility] Medical History (Updated 06/08/25 @ 10:29 by Bijal Umana MD) Obesity due to excess calories with serious comorbidity IgM monoclonal gammopathy of uncertain significance Environmental and seasonal allergies Osteopenia of multiple sites History of left breast cancer Current use of intermediate anticoagulation Retinal hemorrhage, bilateral Decreased renal function On anticoagulant therapy Dyslipidemia Anxiety disorder Paroxysmal atrial fibrillation HTN (hypertension) Surgical History History of cataract extraction History of lumpectomy of left breast Family History Father Enlarged heart Hyperlipidemia Mother Uterine cancer Maternal Aunt Breast cancer Brother Mental health disorder Sister Mental health disorder Sister No problems noted. Son No problems noted. Son No problems noted. Social History Household Members: Spouse Housing: House Are you a primary geriatric care manager to a significant other at home: No Do you presently have visiting nurse or other home services: No Alcohol intake: never Patient Tobacco Use Status: Never used Tobacco e-Cigarette/Vaping Use: Never Used Second Hand Smoke Exposure: No service: No Current occupational status: retired Cognitive needs: No Hearing needs: No Vision needs: Yes Questionnaire Thrive Questionnaire Date Thrive assessed: 04/22/25 HERNAN-7 AMB Questionnaire HERNAN-7 Date HERNAN - 7 assessed: 04/29/25 Source: Developed by Drs. Antony Samuel, Isis Christensen, Mheul Casper and colleagues, with an educational roseline from [employer]. Review of Systems Const Reports no additional complaints Eyes Details: The patient is under treatment for retinal hemorrhage and is concerned about potential vision changes associated with GLP-1 medications. ENT Reports no additional complaints Card Details: Currently on Xarelto, no abnormal tendencies noted Reports no additional complaints Resp Reports no additional complaints GI Details: has history of constipation, which is currently managed with stool softeners. Reports no additional complaints Musc Reports no additional complaints Psych Reports no additional complaints Endo Reports no additional complaints Abundio/Lymph Reports no additional complaints Aller/Immun Reports no additional complaints Physical exam (Primary Care) Tobacco/Smoking Status: Tobacco use Status Tobacco use date assessed 06/07/25 06/07/25 10:08 Patient Tobacco Use Status Never used Tobacco 06/07/25 10:08 e-Cigarette/Vaping Use Never Used 06/07/25 10:08 Thrive Assessment: Date of Thrive Assessment Date Thrive assessed 04/22/25 06/07/25 10:08 Telehealth Telehealth Telehealth Platform: [employer] Location of provider rendering services: practice address Location of patient: address on file Patient Identification confirmed using: Name, : Yes Telehealth method: video Patient verbally consented to treatment: Yes Patient verbally consented to billing insurance company: Yes Patient informed of any privacy concerns related to visit: Yes Minutes spent on Phone/Video with Pt.: 15 Coding Level of Care Code Tele Est Pt Level 4 (80432) Diagnoses Obesity due to excess calories with serious comorbidity E66.09 Paroxysmal atrial fibrillation I48.0 Dyslipidemia E78.5 CKD (chronic kidney disease) stage 2, GFR 60-89 ml/min N18.2 Primary hypertension I10 Hypertension type: primary hypertension Renal artery stenosis I70.1 Assessment & Plan Assessment & Plan (1) Obesity due to excess calories with serious comorbidity: Code(s): E66.09 - Other obesity due to excess calories Category: Medical Plan: discussed the potential benefits and risks of starting GLP-1 agonists for weight management and kidney protection.discussed possible side effects , which includes slowing gut motility, which may lead to side effects such as gastroparesis. altered taste, risk for gallstones. We reviewed the importance of starting at a low dose and monitoring for side effects, with the option to discontinue if adverse effects occur. We also discussed the potential for Medicare coverage due to the patient's stage 2 chronic kidney disease and the need for consultation with her instrument worker regarding her retinal hemorrhage before starting the medication (2) Paroxysmal atrial fibrillation: Comment: FRANCHESKA guided cardioversion in December of 2015. Normal structure of the heart Foll'd by Dr. Anna Code(s): I48.0 - Paroxysmal atrial fibrillation Category: Medical Plan: Followed by cardiology, currently on flecainide, metoprolol tartrate Xarelto (3) Dyslipidemia: Code(s): E78.5 - Hyperlipidemia, unspecified Category: Medical Plan: Rosuvastatin 10 mg daily (4) CKD (chronic kidney disease) stage 2, GFR 60-89 ml/min: Code(s): N18.2 - Chronic kidney disease, stage 2 (mild) Category: Medical Plan: Followed by Nephrology (5) HTN (hypertension): Code(s): I10 - Essential (primary) hypertension Category: Medical Qualifiers: Hypertension type: primary hypertension Qualified Code(s): I10 - Essential (primary) hypertension Plan: Blood pressure at goal of less than 130/80. Continue with current medication. Reinforced importance of following a low sodium diet, getting regular exercise, and lowering stress levels. (6) Renal artery stenosis: Code(s): I70.1 - Atherosclerosis of renal artery Category: Medical Plan: Followed by Nephrology
--- OUTSIDE RECORDS SUMMARY | 2025-06-07 11:03 | XMS_ITS | Clinical Summary ---
Author Organization [facility] Address [address] [place] [address] Phone Care Team Providers Care Laser Beam Machine Operator Name Role Phone Ayaka Umana MD Primary Care Provider [phone]- [phone] Allergies No known active allergies Medications calcitriol [...] age to complete this topic Insurance Medicare [facility] Commercial Medicare [employer] Commercial Care Teams Laser Beam Machine Operator Relationship Specialty Start Date End Date Ayaka Umana MD [facility] [place] [address] PCP - General Internal Medicine 06/28/23
--- OUTSIDE RECORDS SUMMARY | 2025-06-07 11:03 | XMS_ITS | Patient Health Record ---
Author Organization [facility] Address [address] [place] [address] Care Team Providers Care Supervisor Inspection Name Role Phone Lyndsay BERGER, Bijal Primary Care Provider Antony Kothari Unavailable [phone] Reason For Referral No Information Medications Medication [...] Status Risk Notes Problem Colon cancer screening (333533923) Colon cancer screening (V76.51) Active confirmed Problem Irritable bowel syndrome (84539379) Irritable bowel syndrome (IBS) (564.1) Active confirmed Plan Of Treatment Future Test Test Name Order Date COLONOSCOPY 10/23/2014 Insurance Providers Payer Name Payer Address Payer Phone Subscriber Number Group Number Insured Name Patient Relationship to Insured Coverage Start Date Coverage End Date MEDICARE OF [place] [address] [place] [address] [id number] VERONICA CHIN Self - patient is the insured [facility] [address] [place], [place] [id number] VERONICA CHIN Self - patient is the insured Medical (General) History Medical History History ICD Code Screening Colonoscopy in 04/2005--only in ternal hemorrhoids Hypertension Breast cancer-left [id number] and lum pectomy Hyperlipidemia Denies [place],DM,CVA,Lung disease,renal dise ase Surgical History Surgery Date(Month/Year) lumpectomy, left-sided breast cancer
== END 2025-06-07 14:22 | disposition home or self-care (01) ==
LOC: HO.HMCC 10:09
PROVIDERS: PCP Internal Medicine; Visit Provider Internal Medicine
DX: E66.09 Other obesity due to excess calories (principal); I48.0 Paroxysmal atrial fibrillation; E78.5 Hyperlipidemia, unspecified; N18.2 Chronic kidney disease, stage 2 (mild); I12.9 Hypertensive chronic kidney disease with stage 1 through stage 4 chronic kidney disease, or unspecified chronic kidney disease; I70.1 Atherosclerosis of renal artery

== ENCOUNTER 2025-08-26 13:45 | Outpatient (AMB) | payer OTHER, SELFPAY ==
--- NOTE | 2025-08-26 13:58 | MHC.OFFVIS ---
Vital Signs 08/26/25 14:03 Height 5 ft 2 in Weight 193 lb BMI 35.3 BP 124/66 Blood Pressure Location Rt brachial Position Sitting Pulse 64 Pulse Source Pulse Oximeter Pulse Oximetry (%) 98 Oxygen Delivery Method Room Air Intake Visit Reasons: 4 mo f/u Intake Note: Est pt for GERD + CIC mgmt. CC: Pt denies any current GI sx or concerns. She does however, wish to discuss her possible eligibility for GLP 1 therapy for weight loss. She is aware that they do have multiple, possible side effects and would like to see if she is eligible based on her medical hx. Hotel Receptionist Required: No Accompanied by: Self / Same As Patient Allergies bupropion (From Wellbutrin) Allergy (Intermediate, Verified 08/26/25 14:01) burning sensation citalopram Allergy (Intermediate, Verified 08/26/25 14:01) burning sensatin in skin HPI HPI 4 mo f/u: Details: LAST VISIT: Gastroesophageal reflux disease Irritable bowel syndrome Elevated transaminase measurement Constipation Plan Patient will continue taking omeprazole daily. Avoid dietary triggers like that snacking. Staying upright for minimal 3 hours after meals discussed with patient. Continue stool softeners. Increased fiber, fluid intake and activity to promote better bowel motility. Weight loss recommended. Low fat, low carb diet. Avoid sugars and sweets. Follow-up in 4 months, sooner on as needed basis. Patient is agreeable to this plan and verbalizes understanding of instructions. She was given the opportunity to ask questions and all questions answered. ? TODAY'S VISIT: Patient is here today for follow-up. Patient reports that she has tried to lose weight and is unable to do on her own. She is interested in possibly starting GLP 1 to help with weight loss. Patient tried berberine however not very successful. Patient is not counting calories or watching what she eats. Patient reports that she is having hard time to stick with the diet and the amount of food that she eats at one sitting. Patient reports occasional epigastric pain postprandially. Currently is taking omeprazole and reports that she is doing well. Occasional acid reflux and epigastric pain at night time. Patient denies eating late at night, however she does have snack PFSH Medical History Obesity due to excess calories with serious comorbidity IgM monoclonal gammopathy of uncertain significance Environmental and seasonal allergies Osteopenia of multiple sites History of left breast cancer Current use of senior living anticoagulation Retinal hemorrhage, bilateral Decreased renal function On anticoagulant therapy Dyslipidemia Anxiety disorder Paroxysmal atrial fibrillation HTN (hypertension) Surgical History History of cataract extraction History of lumpectomy of left breast Family History Father Enlarged heart Hyperlipidemia Mother Uterine cancer Maternal Aunt Breast cancer Brother Mental health disorder Sister Mental health disorder Sister No problems noted. Son No problems noted. Son No problems noted. Social History Household Members: Spouse Housing: House Are you a primary childcare director to a significant other at home: No Do you presently have visiting nurse or other home services: No Alcohol intake: never Patient Tobacco Use Status: Never used Tobacco e-Cigarette/Vaping Use: Never Used Second Hand Smoke Exposure: No service: No Current occupational status: retired Cognitive needs: No Hearing needs: No Vision needs: Yes Review of Systems Const Denies weight gain and Denies weight loss ENT Reports no additional complaints, Reports dysphagia (Feels like swallowing is slower) and Denies odynophagia Card Reports no additional complaints Resp Reports no additional complaints GI Denies abdominal pain, Denies belching, Denies melena, Reports bloating, Denies change in bowel habits, Reports constipation, Reports dysphagia (Feels like swallowing is slower), Denies excessive flatus, Denies dyspepsia, Denies heartburn, Denies diarrhea, Reports loose stools, Denies nausea, Denies odynophagia and Denies vomiting Reports no additional complaints Musc Reports no additional complaints Neuro Reports no additional complaints Psych Reports no additional complaints Endo Reports no additional complaints Physical Exam Vital Signs: Last Vital Signs Pulse 64 08/26/25 14:03 BP 124/66 08/26/25 14:03 Pulse Ox 98 08/26/25 14:03 Oxygen Delivery Method Room Air 08/26/25 14:03 BMI result Body Mass Index 35.3 Const General: healthy appearing and no acute distress Nutritional Appearance: obese Orientation/consciousness: patient oriented x3 Cardio Rate: regular rate GI Inspection: Yes normal to inspection, No distended and Yes obesity Palpation (GI): Soft to palpation, not firm, nontender and No hepatosplenomegaly present Auscultation: normal bowel sounds General: Yes no CVA tenderness Back/Spine/Pelvis Back: no CVA tenderness Skin General skin exam: elasticity normal, turgor normal and dry skin Neuro General: patient oriented x3 Psych Appearance: grossly normal Mental Status: mental status grossly normal Assessment & Plan Assessment & Plan (1) Gastroesophageal reflux disease: Code(s): K21.9 - Gastro-esophageal reflux disease without esophagitis Qualifiers: Esophagitis presence: esophagitis presence not specified Qualified Code(s): K21.9 - Gastro-esophageal reflux disease without esophagitis (2) Irritable bowel syndrome: Code(s): K58.9 - Irritable bowel syndrome, unspecified Qualifiers: Irritable bowel syndrome type: without diarrhea Qualified Code(s): K58.9 - Irritable bowel syndrome, unspecified (3) Elevated transaminase measurement: Code(s): R74.01 - Elevation of levels of liver transaminase levels (4) Constipation: Code(s): K59.00 - Constipation, unspecified Qualifiers: Constipation type: slow transit constipation Qualified Code(s): K59.01 - Slow transit constipation Plan Patient will continue taking omeprazole in the morning. May take famotidine as needed at that time. However discussed with patient dietary triggers. Diet modification. Patient was encouraged to eat smaller meals and more often. Avoiding snacks. Avoiding sweets and carbs. Encouraged patient to exercise. Patient will follow-up in the office in 6 months. She will call us if she will have any GI concerning symptoms. Patient is agreeable to this plan and verbalizes understanding of instructions. She was given the opportunity to ask questions and all questions answered. Thank you for allowing me to participate in her care Medications: New famotidine 20 mg PO DAILY 30 tabs 4RF Refilled omeprazole 20 mg PO DAILY 30 caps 2RF K21.9 - Gastro-esophageal reflux disease without esophagitis Coding Level of Care Code Est Pt Level 4 (78521) Complex visit Add On G2211 Diagnoses Gastroesophageal reflux disease, unspecified whether esophagitis present K21.9 Esophagitis presence: esophagitis presence not specified Irritable bowel syndrome without diarrhea K58.9 Irritable bowel syndrome type: without diarrhea Elevated transaminase measurement R74.01 Slow transit constipation K59.01 Constipation type: slow transit constipation Time Spent (min) 35 Comment 25 minute spent with patient and additional 10 minutes spent reviewing her records
[2025-08-26 14:03] VITALS: BP 124/66; PULSE 64; O2SAT 98; BMI 35.3
== END 2025-08-26 14:28 | disposition home or self-care (01) ==
LOC: HO.HGI 13:46
PROVIDERS: PCP Internal Medicine; Visit Provider Nurse Practitioner Family
DX: K21.9 Gastro-esophageal reflux disease without esophagitis (principal); K58.9 Irritable bowel syndrome, unspecified; R74.01 Elevation of levels of liver transaminase levels; K59.01 Slow transit constipation
CPT/HCPCS: 99214; G2211

== ENCOUNTER 2025-09-02 13:05 | Outpatient (REF) | payer MEDICARE, OTHER, SELFPAY ==
--- OUTSIDE RECORDS SUMMARY | 2025-09-02 16:45 | XMS_ITS | Clinical Summary ---
Author Organization [facility] Address [address] [place] [address] Phone Care Team Providers Care Executive Business Coach Name Role Phone Ayaka Umana MD Primary Care Provider [phone]- [phone] Allergies No known active allergies Medications calcitriol [...] age to complete this topic Insurance Medicare [facility] Commercial Medicare [employer] Commercial Care Teams Executive Business Coach Relationship Specialty Start Date End Date Ayaka Umana MD PCP - General Internal Medicine 06/28/23
[2025-09-02 16:46] LABS: Anion Gap 13 (12-20); Blood Urea Nitrogen 16 mg/dL (9-16); Carbon Dioxide 21 mmol/L (22-29); Chloride 107 mmol/L (96-108); Estimated Glomerular Filt Rate 51; Potassium 4.0 mmol/L (3.3-5.1); Sodium 137 mmol/L (135-145)
[2025-09-02 17:37] LABS: Total Protein Urine Random < 7 mg/dL (<12)
== END 2025-09-02 13:06 | disposition home or self-care (01) ==
LOC: HO.HMGCLDS 13:05
PROVIDERS: PCP Internal Medicine; Visit Provider Internal Medicine Nephrology
DX: N18.2 Chronic kidney disease, stage 2 (mild) (principal); I70.1 Atherosclerosis of renal artery
CPT/HCPCS: 36415; 80051; 82565; 82570; 84156; 84520

== ENCOUNTER 2025-09-04 13:22 | Outpatient (AMB) | payer MEDICARE, OTHER, SELFPAY ==
--- NOTE | 2025-09-04 13:32 | HO.NEPHOV ---
Vital Signs 09/04/25 13:34 Height 5 ft 2 in Weight 187 lb 4 oz BMI 34.2 BP 132/70 Blood Pressure Location Rt brachial Position Sitting Pulse 67 Pulse Source Pulse Oximeter Pulse Oximetry (%) 98 Oxygen Delivery Method Room Air Intake Visit Reasons: 9 MO FU-Conf Field Project Manager Required: No Accompanied by: Self / Same As Patient Allergies bupropion (From Wellbutrin) Allergy (Intermediate, Verified 09/04/25 13:34) burning sensation citalopram Allergy (Intermediate, Verified 09/04/25 13:34) burning sensatin in skin HPI Comments Details: I had the privilege of seeing Shellie in follow up for her mild CKD on a backdrop of long standing hypertension. She had not been monitoring her BP closely at home until recently but has been compliant with metoprolol. She has history of paroxysmal atrial fibrillation on xarelto . She was recently diagnosed with retinal hemorrhages. She is not a diabetic. She denies Carotid stenosis, CAD, CHF, PAD, MITUL, CVA, recurrent UTI's, renal stones, hearing deficits, M/S hematuria, joint swellings, photosensitivity, skin rashes, epistaxis, hemoptysis, hemetemesis or melena. She denies new bone or back pain. She doesn't take excess NSAID's. She was recently found to have high IgM levels with [place] monoclonal bands and has seen community cultural development officer who did the BM biopsy which was negative. She has no symptoms of hyperviscosity. She has remote H/O breast cancer. She had CT abdomen which showed some abnormal thickening and is being investigated. She is not known to have proteinuria. Her BP was not well controlled on metoprolol and amlodipine was added with better control. She denies being on ACEI/ARB. Her last serum creatinine has been stable [facility] Medical History Obesity due to excess calories with serious comorbidity IgM monoclonal gammopathy of uncertain significance Environmental and seasonal allergies Osteopenia of multiple sites History of left breast cancer Current use of jail anticoagulation Retinal hemorrhage, bilateral Decreased renal function On anticoagulant therapy Dyslipidemia Anxiety disorder Paroxysmal atrial fibrillation HTN (hypertension) Surgical History History of cataract extraction History of lumpectomy of left breast Family History Father Enlarged heart Hyperlipidemia Mother Uterine cancer Maternal Aunt Breast cancer Brother Mental health disorder Sister Mental health disorder Sister No problems noted. Son No problems noted. Son No problems noted. Social History Household Members: Spouse Housing: House Are you a primary md do resident urgent care to a significant other at home: No Do you presently have visiting nurse or other home services: No Alcohol intake: never Patient Tobacco Use Status: Never used Tobacco e-Cigarette/Vaping Use: Never Used Second Hand Smoke Exposure: No service: No Current occupational status: retired Cognitive needs: No Hearing needs: No Vision needs: Yes Review of Systems Const All systems reviewed & are unremarkable except as noted in HPI and below Physical Exam Vital Signs: Last Vital Signs Pulse 67 09/04/25 13:34 BP 132/70 09/04/25 13:34 Pulse Ox 98 09/04/25 13:34 Oxygen Delivery Method Room Air 09/04/25 13:34 BMI result Body Mass Index 34.2 Const General: comfortable and no acute distress Orientation/consciousness: patient oriented x3 HEENT Head: Yes normocephalic Mouth: Normal oral and palatal mucosa present Eyes EOM: EOMs intact bilaterally Neck Neck: Yes supple Resp Auscultation: clear to auscultation bilaterally Cardio Jugular venous distension: no JVD Rate: regular rate GI Palpation (GI): Soft to palpation Auscultation: normal bowel sounds General: Yes no CVA tenderness Back/Spine/Pelvis Back: no CVA tenderness Skin General skin exam: no rashes or lesions noted Neuro General: patient oriented x3 and moves all extremities Extrem General: Yes no pedal edema Results Reviewed Nephrology Results: Sodium, (135-145) 137 mmol/L 09/02/25 Potassium, (3.3-5.1) 4.0 mmol/L 09/02/25 Chloride, (96-108) 107 mmol/L 09/02/25 Carbon Dioxide, (22-29) 21 mmol/L L 09/02/25 BUN, (9-16) 16 mg/dL 09/02/25 Creatinine, (0.5-1.4) 1.05 mg/dL 09/02/25 Urine Creatinine 28.39 mg/dL 09/02/25 Protein/Creatinin Ratio TNP 09/02/25 Renal US 10/06/23 Assessment & Plan Assessment & Plan (1) HTN (hypertension): Code(s): I10 - Essential (primary) hypertension Category: Medical Qualifiers: Hypertension type: primary hypertension Qualified Code(s): I10 - Essential (primary) hypertension (2) Renal artery stenosis: Code(s): I70.1 - Atherosclerosis of renal artery Category: Medical Plan 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 Her serum creatinine is fairly stable. She has no blood or protein in the urine. Doppler of renal arteries showed hemodynamically significant right renal artery stenosis. ( going to be repeated in a year time after her next visit). Her 24 hour urine showed GFR of close to 80 mls/mt. She was found to have high IgM and had bone marrow biopsy. She has no anemia, hypercalcemia, pancytopenia or rising serum creatinine. She will be a candidate for ACEI/ARB in the future. I did not make any medication changes today. All her questions were answered. Orders: Orders Creatinine 1 Year I10 - Essential (primary) hypertension, I70.1 - Atherosclerosis of renal artery Blood Urea Nitrogen 1 Year I10 - Essential (primary) hypertension, I70.1 - Atherosclerosis of renal artery Electrolytes 1 Year I10 - Essential (primary) hypertension, I70.1 - Atherosclerosis of renal artery Calcium 1 Year I10 - Essential (primary) hypertension, I70.1 - Atherosclerosis of renal artery Protein Creatinine Ratio, Ur 1 Year I10 - Essential (primary) hypertension, I70.1 - Atherosclerosis of renal artery Medications: Refilled amlodipine 5 mg PO DAILY 90 tabs 4RF metoprolol tartrate 50 mg PO BID 180 tabs 3RF I48.0 - Paroxysmal atrial fibrillation Coding Level of Care Code Est Pt Level 4 (07054) Diagnoses Primary hypertension I10 Hypertension type: primary hypertension Renal artery stenosis I70.1
[2025-09-04 13:34] VITALS: BP 132/70; PULSE 67; O2SAT 98; BMI 34.2
--- OUTSIDE RECORDS SUMMARY | 2025-09-04 15:56 | XMS_ITS | Clinical Summary ---
Author Organization [facility] Address [address] [place] [address] Phone Care Team Providers Care Jig Bore Operator Name Role Phone Ayaka Umana MD Primary Care Provider [phone]- [phone] Allergies No known active allergies Medications calcitriol [...] complete this topic Insurance Medicare [facility] Commercial Medicare [employer] Commercial Care Teams Jig Bore Operator Relationship Specialty Start Date End Date Ayaka Umana MD PCP - General Internal Medicine 06/28/23
--- OUTSIDE RECORDS SUMMARY | 2025-09-04 15:56 | XMS_ITS | Patient Health Record ---
Author Organization [facility] Address [address] [place] [address] Care Team Providers Care Insurance Checker Name Role Phone Bijal Umana MD Primary Care Provider Antony Kothari Unavailable [phone] Reason For Referral No Information Medications Medication SIG (Take, Route, Frequency, Duration) Notes Start Date End Date Status Metoprolol Tartrate 50 MG Tablet 1 tablet Orally Twice a day Active CoQ-10 200 MG Capsule 1 capsule with a m eal Orally Once a day Active Aspirin 81 MG Tablet Chewable 1 tablet Orally Once a day Active Simvastatin 20 MG Tablet 1 tablet in the evening Orally Once a day Active Colyte w Flavor Packs 240 GM Solution Reconstituted as directed Orally as directed; Duration: 1 day(s) 10/26/2014 Active Vitamin B Plus+ Acti ve Vitamin D 2000 UNIT Tablet Orally Active Fish Oil 1200 MG Capsule 1 capsule Orall y Once a day Active Social History Social History Additional Details Category Social Info Options Details Miscellaneous: Marital status: 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[facility] [employer] Section Notes: Nonsmoker; no sig alcohol Problems Problem Type SNOMED Code ICD Code Onset Dates Problem Status W/U Status Risk Notes Problem Colon cancer screening (098397798) Colon cancer screening (V76.51) Active confirmed Problem Irritable bowel syndrome (50391629) Irritable bowel syndrome (IBS) (564.1) Active confirmed Plan Of Treatment Future Test Test Name Order Date COLONOSCOPY 10/23/2014 Insurance Providers Payer Name Payer Address Payer Phone Subscriber Number Group Number Insured Name Patient Relationship to Insured Coverage Start Date Coverage End Date MEDICARE OF [employer]I [address] [place], [place] [id number] VERONICA CHIN Self - patient is the insured [facility] [address] [place], [place] [id number] VERONICA CHIN Self - patient is the insured Medical (General) History Medical History History ICD Code Screening Colonoscopy in 04/2005--only in ternal hemorrhoids Hypertension Breast cancer-left [id number] and lum pectomy Hyperlipidemia Denies [place],DM,CVA,Lung disease,renal dise ase Surgical History Surgery Date(Month/Year) lumpectomy, left-sided breast cancer
== END 2025-09-04 14:01 | disposition home or self-care (01) ==
PROVIDERS: PCP Internal Medicine; Visit Provider Internal Medicine Nephrology
DX: I10 Essential (primary) hypertension (principal); I70.1 Atherosclerosis of renal artery
CPT/HCPCS: 99214

== ENCOUNTER → 2025-09-04 13:22 | Outpatient (BNVA) | payer MEDICARE, OTHER, SELFPAY | PROVIDERS: PCP Internal Medicine; Visit Provider Internal Medicine Nephrology | DX: I12.9 Hypertensive chronic kidney disease with stage 1 through stage 4 chronic kidney disease, or unspecified chronic kidney disease (principal); N18.2 Chronic kidney disease, stage 2 (mild); I70.1 Atherosclerosis of renal artery; Z79.01 Long term (current) use of anticoagulants | CPT/HCPCS: 99212 ==

== ENCOUNTER 2025-10-01 15:05 | Outpatient (AMB) | payer MEDICARE, OTHER, SELFPAY ==
--- NOTE | 2025-10-01 15:11 | A.OFFVIS_ITS ---
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 Accompanied by: Self / Same As Patient Allergies bupropion (From Wellbutrin) Allergy (Intermediate, Verified 09/04/25 13:34) burning sensation citalopram Allergy (Intermediate, Verified 09/04/25 13:34) burning sensatin in skin Medication List - Last Reconciled 10/01/25 by Bob Anna MD amlodipine 5 mg PO DAILY cholecalciferol (vitamin D3) 25 mcg PO DAILY docusate sodium 200 mg PO DAILY PRN estradiol 0.01%(0.1mg/gram) vaginal famotidine 20 mg PO DAILY flecainide 50 mg PO BID fluticasone propionate 50 mcg/actuation (Flonase Allergy Relief) 1 spray intranasal BID PRN lorazepam 0.5 mg PO DAILY PRN mastectomy bra (bra, mastectomy) As directed metoprolol tartrate 50 mg PO BID omeprazole 20 mg PO DAILY Prosthesis, breast (Breast prosthesis) As directed rivaroxaban (Xarelto) 20 mg PO BEDTIME rosuvastatin 10 mg PO DAILY HPI Comments Details: Shellie comes for follow-up. She says she has been doing well from cardiac perspective. She occasionally has fluttering in his chest but overall has done well without any prolonged episodes of atrial fibrillation. No exertional chest pain or shortness of breath. No orthopnea, PND, lightheadedness. Tolerating her medications well. No bleeding issues or neurologic events. She is interesting in weight loss therapy [facility] Medical History Obesity due to excess calories with serious comorbidity IgM monoclonal gammopathy of uncertain significance Environmental and seasonal allergies Osteopenia of multiple sites History of left breast cancer Current use of intermediate designer anticoagulation Retinal hemorrhage, bilateral Decreased renal function On anticoagulant therapy Dyslipidemia Anxiety disorder Paroxysmal atrial fibrillation HTN (hypertension) Surgical History History of cataract extraction History of lumpectomy of left breast Family History Father Enlarged heart Hyperlipidemia Mother Uterine cancer Maternal Aunt Breast cancer Brother Mental health disorder Sister Mental health disorder Sister No problems noted. Son No problems noted. Son No problems noted. Social History Household Members: Spouse Housing: House Are you a primary health care assistant to a significant other at home: No Do you presently have visiting nurse or other home services: No Alcohol intake: never Patient Tobacco Use Status: Never used Tobacco e-Cigarette/Vaping Use: Never Used Second Hand Smoke Exposure: No service: No Current occupational status: retired Cognitive needs: No Hearing needs: No Vision needs: Yes Review of Systems Const Denies chills, Denies fatigue, Denies fever(s), Denies frequent falls, Denies weakness, Denies weight gain and Denies weight loss ENT Denies dizziness Card Denies chest pain, Denies leg edema, Denies lightheadedness, Denies palpitations, Denies dyspnea and Denies dyspnea on exertion Resp Denies cough, Denies dyspnea and Denies dyspnea on exertion GI Denies hematochezia Musc Denies abnormal gait, Denies muscle weakness, Denies numbness, Denies radiating pain into limb and Denies tingling Neuro Denies abnormal gait, Denies dizziness, Denies frequent falls, Denies numbness, Denies tingling and Denies weakness Endo Denies fatigue and Denies palpitations Physical Exam Vital Signs: Last Vital Signs Pulse 67 10/01/25 15:12 BP 124/66 10/01/25 15:12 Const General: cooperative, healthy appearing, comfortable, no acute distress, alert and awake Nutritional Appearance: obese Orientation/consciousness: patient oriented x3 Limitations: no limitations Neck Neck: Yes full ROM, Yes trachea midline, Yes supple and Yes no JVD Chest Chest palpation & inspection: normal inspection of the chest Resp Effort & Inspection: normal respiratory effort Auscultation: clear to auscultation bilaterally Cardio Jugular venous distension: no JVD Palpation: normal PMI Rate: regular rate Rhythm: regular rhythm Heart sounds: S1 normal heart sound present, S2 normal heart sound present and Other heart sounds present ( S4 present) Peripheral pulses: Peripheral pulses 2+ throughout GI Inspection: Yes normal to inspection Auscultation: normal bowel sounds Skin General skin exam: no rashes or lesions noted Neuro General: patient oriented x3 and no focal motor deficits Extrem General: Yes no clubbing, cyanosis or edema Psych Appearance: grossly normal Office Procedures EKG Details: EKGs shows normal sinus rhythm with normal EKGs [id number], Complete Assessment & Plan Assessment & Plan (1) Paroxysmal atrial fibrillation: Comment: FRANCHESKA guided cardioversion in December of 2015. Normal structure of the heart Foll'd by Dr. Anna Code(s): I48.0 - Paroxysmal atrial fibrillation Category: Medical Plan: Highly symptomatic paroxysmal atrial fibrillation has done well with rhythm control approach will continue pursue rhythm control approach. Currently tolerating flecainide therapy. Continue concomitant metoprolol therapy. Continue full oral anticoagulation, currently on Xarelto 20 mg daily. Semi annual renal function test and annual CBC should be pursued. Avoidance of stimulants was discussed. She would benefit from weight loss and I have taken the liberty to refer her to bariatric service for further evaluation and she is interested in medical weight loss planned. (2) HTN (hypertension): Code(s): I10 - Essential (primary) hypertension Category: Medical Qualifiers: Hypertension type: primary hypertension Qualified Code(s): I10 - Essential (primary) hypertension Plan: Hypertension which is currently well optimized advised to monitor blood pressure at home maintain a log. Goal blood pressure less than 130/84. Advise low-salt diet. Encouraged to continue participate in weight loss program which she is very interested in. Continue amlodipine therapy. Encouraged to increase activity level as tolerated. Continue statin therapy with target goal LDL less than 100 mg/dL. Will follow up in the clinic in 6 months for EKG in 1 year with me. Thank you for allowing me to partake in her care Orders: Orders CA echo transthoracic complete Today I48.0 - Paroxysmal atrial fibrillation Referrals Bariatric Surgery Referral E66.09 - Other obesity due to excess calories Medications: Refilled flecainide 50 mg PO BID 180 tabs 3RF I48.0 - Paroxysmal atrial fibrillation rivaroxaban (Xarelto) 20 mg PO BEDTIME 90 tabs 3RF I48.0 - Paroxysmal atrial fibrillation Coding Level of Care Code Est Pt Level 4 (32696) Diagnoses Paroxysmal atrial fibrillation I48.0 Primary hypertension I10 Hypertension type: primary hypertension CPT Codes EKG - CPT: 83593-[id number], Complete ([id number])
[2025-10-01 15:12] VITALS: BP 124/66; PULSE 67
--- OUTSIDE RECORDS SUMMARY | 2025-10-01 18:36 | XMS_ITS | Patient Health Record ---
Author Organization [facility] Address [address] [place] [address] Care Team Providers Care Parts Specialist Name Role Phone Bijal Umana MD Primary Care Provider Antony Kothari Unavailable [phone] Reason For Referral No Information Medications Medication [...] Options Details Miscellaneous: Marital status: Occupation: Retired summer law clerk [employer] Section Notes: Nonsmoker; no sig alcohol Problems Problem Type SNOMED Code ICD Code Onset Dates Problem Status W/U Status Risk Notes Problem Colon cancer screening (374568753) Colon cancer screening (V76.51) Active confirmed Problem Irritable bowel syndrome (20423577) Irritable bowel syndrome (IBS) (564.1) Active confirmed Plan Of Treatment Future Test Test Name Order Date COLONOSCOPY 10/23/2014 Insurance Providers Payer Name Payer Address Payer Phone Subscriber Number Group Number Insured Name Patient Relationship to Insured Coverage Start Date Coverage End Date MEDICARE OF [employer]I [address] [place], [place] [id number] VERONICA CHIN Self - patient is the insured [facility] [address] [place], [place] [id number] VERONICA CHIN Self - patient is the insured Medical (General) History Medical History History ICD Code Screening Colonoscopy in 04/2005--only in ternal hemorrhoids Hypertension Breast cancer-left [id number] and lum pectomy Hyperlipidemia Denies [place],DM,CVA,Lung disease,renal dise ase Surgical History Surgery Date(Month/Year) lumpectomy, left-sided breast cancer
--- OUTSIDE RECORDS SUMMARY | 2025-10-01 18:36 | XMS_ITS | Clinical Summary ---
Author Organization [facility] Address [address] [place] [address] Phone Care Team Providers Care Grab Hooker Name Role Phone Ayaka Umana MD Primary Care Provider [phone] Allergies No known active allergies Medications calcitriol [...] complete this topic Insurance Medicare [facility] Commercial Medicare [employer] Commercial Care Teams Grab Hooker Relationship Specialty Start Date End Date Ayaka Umana MD PCP - General Internal Medicine 06/28/23
== END 2025-10-01 15:27 | disposition home or self-care (01) ==
LOC: HO.HCS 15:06
PROVIDERS: PCP Internal Medicine; Visit Provider Internal Medicine Cardiovascular Disease
DX: I48.0 Paroxysmal atrial fibrillation (principal); I10 Essential (primary) hypertension
CPT/HCPCS: 93010; 99214

== ENCOUNTER → 2025-10-01 15:05 | Outpatient (BNVA) | payer MEDICARE, OTHER, SELFPAY | PROVIDERS: PCP Internal Medicine; Visit Provider Internal Medicine Cardiovascular Disease | DX: I48.0 Paroxysmal atrial fibrillation (principal); I10 Essential (primary) hypertension; E66.09 Other obesity due to excess calories | CPT/HCPCS: 93005; 99212 ==